=== PATIENT | female | born 1935 | race Caucasian/White ===

== ENCOUNTER 2017-09-05 12:26 | Inpatient (IN) | payer MEDICARE, BC ==
[2017-09-05] MEDS ORDERED: FAMOTIDINE 20 MG/2 ML VIAL IV STA (12:41)
[2017-09-05] MEDS ORDERED: RX INFO: IV CONTRAST WAS GIVEN 1 EACH MISC MISCELLANE PRN (12:41)
[2017-09-05] MEDS ORDERED: SODIUM CHLORIDE 0.9% 1,000 ML IV STA (12:41)
[2017-09-05] MEDS ORDERED: ONDANSETRON 4 MG/2 ML VIAL IVP STA ×2 (12:41→14:24)
--- NOTE | 2017-09-05 12:44 | ED ---
General Adult HPI - General Chief complaint: Nausea/Vomiting/Diarrhea Stated complaint: vomiting/diarrhea Time Seen by Provider: 09/05/17 12:28 Source: patient, RN notes reviewed Mode of arrival: ambulatory Limitations: no limitations - History of Present Illness Initial comments: 82-year-old female presents to the emergency department with a chief complaint of nausea vomiting and diarrhea. Patient has had this in the middle of the night. She did eat some chili last states that she believes most likely flared up. She states that he does not know if there is blood or not in the vomit because it was so dark in color from the chili. She denies any fever but states she did have chills on and off for this. There is been no other other symptoms. She denies any chest pain or shortness of breath. Patient denies any recent fever, chills, shortness of breath, chest pain, back pain,numbness or tingling, dysuria or hematuria, constipation , headaches or visual changes, or any other current symptoms. - Related Data Home Medications Medication Instructions Recorded Confirmed Aspirin EC [Ecotrin Low Dose] 81 mg PO DAILY 07/30/16 09/05/17 Previous Rx's Medication Instructions Recorded Atorvastatin [Lipitor] 80 mg PO HS #30 tab 05/19/16 Clopidogrel [Plavix] 75 mg PO DAILY #30 tab 05/19/16 Lisinopril [Zestril] 5 mg PO BID #60 tab 05/19/16 Metoprolol Tartrate [Lopressor] 25 mg PO BID #30 tab 05/19/16 Spironolactone [Aldactone] 25 mg PO DAILY #30 tab 05/19/16 Ondansetron Odt [Zofran ODT] 4 mg PO Q8HR PRN #20 tab 09/05/17 Allergies Allergy/AdvReac Type Severity Reaction Status Date / Time cephalexin [From Keflex] Allergy Cramps Verified 09/05/17 12:52 Review of Systems ROS Statement: Those systems with pertinent positive or pertinent negative responses have been documented in the HPI. ROS Other: All systems not noted in ROS Statement are negative. Past Medical History Past Medical History: Asthma, Coronary Artery Disease (CAD), Hyperlipidemia, Hypertension, Myocardial Infarction (DC), Skin Disorder Additional Past Medical History / Comment(s): allergic asthma, occ palpitations , eczema, neuropathy bilateral lower legs and feet, edema lower legs at times, starting of cataracts bilaterally. Last Myocardial Infarction Date:: 04/2016 History of Any Multi-Drug Resistant Organisms: None Reported Past Surgical History: Heart Catheterization With Stent, Hysterectomy Additional Past Surgical History / Comment(s): 10 cardiac stents, colonoscopy Past Anesthesia/Blood Transfusion Reactions: No Reported Reaction Date of Last Stent Placement:: 06/08/16 Past Psychological History: Anxiety, Depression Smoking Status: Never smoker Past Alcohol Use History: None Reported Past Drug Use History: None Reported - Past Family History Son(s) Family Medical History: Cancer Father Family Medical History: Cancer Additional Family Medical History / Comment(s): Father of colon cancer when he was "elderly" Mother Family Medical History: CVA/TIA Additional Family Medical History / Comment(s): Mother at 89yrs a year after a massive CVA that left her paralyzed. General Exam - General Exam Comments Initial Comments: General: The patient is awake and alert, in no distress, and does not appear acutely ill. Eye: Pupils are equal, round and reactive to light, extra-ocular movements are intact; there is normal conjunctiva bilaterally. No signs of icterus. Ears, nose, mouth and throat: There are moist mucous membranes and no oral lesions. Neck: The neck is supple, there is no tenderness. Cardiovascular: There is a regular rate and rhythm. No murmur, rub or gallop is appreciated. Respiratory: Lungs are clear to auscultation, respirations are non-labored, breath sounds are equal. No wheezes, stridor, rales, or rhonchi. Gastrointestinal: Soft, non-distended, non-tender abdomen without masses or organomegaly noted. There is no rebound or guarding present. No CVA tenderness. Bowel sounds are unremarkable. Back: There is no tenderness to palpation in the midline. There is no obvious deformity. No rashes noted. Musculoskeletal: Normal ROM, no tenderness, There is no pedal edema. There is no calf tenderness or swelling. Sensation intact. Pulses equal bilaterally 2+. Neurological: CN II-XII intact, There are no obvious motor or sensory deficits. Coordination appears grossly intact. Speech is normal. Skin: Skin is warm and dry and no rashes or lesions are noted. Psychiatric: Cooperative, appropriate mood & affect, normal judgment. Limitations: no limitations Course Vital Signs 09/05/17 09/05/17 12:28 14:01 Temperature 98.8 F 98.5 F Pulse Rate 66 91 Respiratory 16 18 Rate Blood Pressure 154/67 159/92 O2 Sat by Pulse 96 99 Oximetry Medical Decision Making - Medical Decision Making 82-year-old female presents for nausea vomiting and diarrhea. This time patient has had no vomiting here in the emergency department. The patient is feeling better at this time. CAT scan lab work is reviewed additional gastroenteritis. This time patient was able to do finger to the bathroom. She is comfortable going home. We will give her Zofran prescription for home. We did discuss close follow-up with her doctor. We discussed that if this worsens she may need to be admitted. We did discuss return parameters all questions. Patient stated that she understood and she is agreement this plan. All questions have been answered. Patient will be discharged. - Lab Data Result diagrams: 09/05/17 12:51 09/05/17 12:51 Lab Results 09/05/17 09/05/17 09/05/17 Range/Units 12:51 12:51 12:51 WBC 8.7 (3.8-10.6) k/uL RBC 4.74 (3.80-5.40) m/uL Hgb 13.5 (11.4-16.0) gm/dL Hct 40.7 (34.0-46.0) % MCV 86.0 (80.0-100.0) fL MCH 28.4 (25.0-35.0) pg MCHC 33.0 (31.0-37.0) g/dL RDW 12.6 (11.5-15.5) % Plt Count 260 (150-450) k/uL Neutrophils % 96 % Lymphocytes % 2 % Monocytes % 2 % Eosinophils % 0 % Basophils % 0 % Neutrophils # 8.3 H (1.3-7.7) k/uL Lymphocytes # 0.2 L (1.0-4.8) k/uL Monocytes # 0.2 (0-1.0) k/uL Eosinophils # 0.0 (0-0.7) k/uL Basophils # 0.0 (0-0.2) k/uL PT 10.6 (9.0-12.0) sec INR 1.1 (<1.2) APTT 22.4 (22.0-30.0) sec Sodium 139 (137-145) mmol/L Potassium 4.1 (3.5-5.1) mmol/L Chloride 107 (98-107) mmol/L Carbon Dioxide 21 L (22-30) mmol/L Anion Gap 11 mmol/L BUN 20 H (7-17) mg/dL Creatinine 0.67 (0.52-1.04) mg/dL Est GFR (MDRD) Af Amer >60 (>60 ml/min/1.73 sqM) Est GFR (MDRD) Non-Af >60 (>60 ml/min/1.73 sqM) Glucose 134 H (74-99) mg/dL Calcium 8.4 (8.4-10.2) mg/dL Phosphorus 3.3 (2.5-4.5) mg/dL Magnesium 1.6 (1.6-2.3) mg/dL Total Bilirubin 0.5 (0.2-1.3) mg/dL AST 22 (14-36) U/L ALT 23 (9-52) U/L Alkaline Phosphatase 71 (38-126) U/L Total Protein 6.3 (6.3-8.2) g/dL Albumin 3.5 (3.5-5.0) g/dL Amylase 79 (30-110) U/L Lipase 82 (23-300) U/L Urine Color Urine Appearance (Clear) Urine pH (5.0-8.0) Ur Specific Wallace (1.001-1.035) Urine Protein (Negative) Urine Glucose (UA) (Negative) Urine Ketones (Negative) Urine Blood (Negative) Urine Nitrite (Negative) Urine Bilirubin (Negative) Urine Urobilinogen (<2.0) mg/dL Ur Leukocyte Esterase (Negative) 09/05/17 Range/Units 14:42 WBC (3.8-10.6) k/uL RBC (3.80-5.40) m/uL Hgb (11.4-16.0) gm/dL Hct (34.0-46.0) % MCV (80.0-100.0) fL MCH (25.0-35.0) pg MCHC (31.0-37.0) g/dL RDW (11.5-15.5) % Plt Count (150-450) k/uL Neutrophils % % Lymphocytes % % Monocytes % % Eosinophils % % Basophils % % Neutrophils # (1.3-7.7) k/uL Lymphocytes # (1.0-4.8) k/uL Monocytes # (0-1.0) k/uL Eosinophils # (0-0.7) k/uL Basophils # (0-0.2) k/uL PT (9.0-12.0) sec INR (<1.2) APTT (22.0-30.0) sec Sodium (137-145) mmol/L Potassium (3.5-5.1) mmol/L Chloride (98-107) mmol/L Carbon Dioxide (22-30) mmol/L Anion Gap mmol/L BUN (7-17) mg/dL Creatinine (0.52-1.04) mg/dL Est GFR (MDRD) Af Amer (>60 ml/min/1.73 sqM) Est GFR (MDRD) Non-Af (>60 ml/min/1.73 sqM) Glucose (74-99) mg/dL Calcium (8.4-10.2) mg/dL Phosphorus (2.5-4.5) mg/dL Magnesium (1.6-2.3) mg/dL Total Bilirubin (0.2-1.3) mg/dL AST (14-36) U/L ALT (9-52) U/L Alkaline Phosphatase (38-126) U/L Total Protein (6.3-8.2) g/dL Albumin (3.5-5.0) g/dL Amylase (30-110) U/L Lipase (23-300) U/L Urine Color Yellow Urine Appearance Clear (Clear) Urine pH 5.5 (5.0-8.0) Ur Specific Wallace >1.050 H (1.001-1.035) Urine Protein Trace H (Negative) Urine Glucose (UA) Negative (Negative) Urine Ketones Negative (Negative) Urine Blood Negative (Negative) Urine Nitrite Negative (Negative) Urine Bilirubin Negative (Negative) Urine Urobilinogen <2.0 (<2.0) mg/dL Ur Leukocyte Esterase Negative (Negative) - Radiology Data Radiology results: report reviewed, image reviewed Disposition Clinical Impression: Nausea & vomiting, Diarrhea Disposition: HOME SELF-CARE Condition: Stable Instructions: Acute Nausea and Vomiting (ED) Additional Instructions: Please use medication as discussed. Please follow up with family doctor if symptoms have not improved over the next two days. Please return to the emergency room if your symptoms increase or worsen or for any other concerns. Prescriptions: Ondansetron Odt [Zofran ODT] 4 mg PO Q8HR PRN #20 tab PRN Reason: Nausea Referrals: Dagoberto Andersen DO [Primary Care Provider] - 1-2 days Time of Disposition: 14:55
[2017-09-05 13:07] LABS: Basophils % (A) 0 %; Eosinophils % (A) 0 %; HCT 40.7 % (34.0-46.0); HGB 13.5 gm/dL (11.4-16.0); Lymphocytes # (A) 0.2 k/uL (1.0-4.8); Lymphocytes % (A) 2 %; MCH 28.4 pg (25.0-35.0); Mean Platelet Volume 7.1; Monocytes # (A) 0.2 k/uL (0-1.0); Monocytes % (A) 2 %; Neutrophils # (A) 8.3 k/uL (1.3-7.7); Neutrophils % (A) 96 %; Platelet Count 260 k/uL (150-450); RBC 4.74 m/uL (3.80-5.40); RDW 12.6 % (11.5-15.5); WBC 8.7 k/uL (3.8-10.6)
[2017-09-05 13:11] LABS: INR 1.1 (<1.2); Partial Thromboplastin Time 22.4 sec (22.0-30.0); Prothrombin Time 10.6 sec (9.0-12.0)
[2017-09-05 13:12] LABS: ALT 23 U/L (9-52); AST 22 U/L (14-36); Albumin 3.5 g/dL (3.5-5.0); Alkaline Phosphatase 71 U/L (38-126); Amylase 79 U/L (30-110); Anion Gap 11 mmol/L; Blood Urea Nitrogen 20 mg/dL (7-17); Calcium 8.4 mg/dL (8.4-10.2); Carbon Dioxide 21 mmol/L (22-30); Chloride 107 mmol/L (98-107); Glucose 134 mg/dL (74-99); Lipase 82 U/L (23-300); Magnesium 1.6 mg/dL (1.6-2.3); Phosphorus 3.3 mg/dL (2.5-4.5); Potassium 4.1 mmol/L (3.5-5.1); Sodium 139 mmol/L (137-145); Total Bilirubin 0.5 mg/dL (0.2-1.3); Total Protein 6.3 g/dL (6.3-8.2)
--- NOTE | 2017-09-05 14:17 | CT ---
EXAMINATION TYPE: CT abdomen pelvis w con DATE OF EXAM: 09/05/2017 COMPARISON: NONE HISTORY: Vomiting and Diarrhea CT DLP: 473.2 mGycm Automated exposure control for dose reduction was used. TECHNIQUE: Helical acquisition of images from the lung bases through the pelvis have been completed. CONTRAST: Performed without Oral Contrast and with IV Contrast, patient injected with 100 mL of Omnipaque 300. FINDINGS: Suspect a hiatal hernia may be present. Possible pulmonary artery calcifications, mitral an nular calcification LUNG BASES: No significant abnormality is appreciated. AORTA: No significant abnormality is appreciated. LIVER/GB: No significant abnormality is appreciated. PANCREAS: No significant abnormality is seen. SPLEEN: No significant abnormality is seen. ADRENALS: No significant abnormality is seen. KIDNEYS: No significant abnormality is seen. REPRODUCTIVE ORGANS: Uterus is absent Adnexal structures are not evident.. BOWEL: No significant abnormality is seen. There is a fluid-filled stomach present. Probable retain ed food or secretions within the stomach. There are fluid-filled loops of small bowel present. No casa dent appendicitis. Questionable colonic wall thickening distally. FREE AIR: No Free Air visible. ASCITES: None visible. PELVIC ADENOPATHY: None visualized. RETROPERITONEAL ADENOPATHY: No Retroperitoneal Adenopathy visible. URINARY BLADDER: No significant abnormality is seen. OSSEOUS STRUCTURES: There is anterolisthesis grade 1 to grade 2 at L5-S1. Loss of disc height is pres ent with associated vacuum phenomenon. There is multilevel degenerative disc disease. Heterogeneous d ensity noted within the vertebral bodies may be due to underlying osteopenia. IMPRESSION: CORRELATE FOR GASTROENTERITIS, POSSIBLE COLITIS. POSTOP CHANGES.
[2017-09-05 14:49] LABS: Appearance,Urine Clear (Clear); Bilirubin,Urine Negative (Negative); Blood,Urine Negative (Negative); Color,Urine Yellow; Glucose,Urine (UA) Negative (Negative); Ketones,Urine Negative (Negative); Leukocyte Esterase,Urine Negative (Negative); Nitrite,Urine Negative (Negative); PH, Urine 5.5 (5.0-8.0); Protein,Urine Trace (Negative); Urobilinogen,Urine <2.0 mg/dL (<2.0)
[2017-09-05 14:53] LABS: Specific Gravity,Urine >1.050 (1.001-1.035)
[2017-09-05] MEDS ORDERED: MAG HYDROX/AL HYDROX/SIMETH 30 ML, HYOSCYAMINE ELIXIR 10 ML, CIMETIDINE HCL 300 MG PO STA ×3 (15:05)
--- NOTE | 2017-09-05 15:13 | ED ---
Medical Decision Making - Medical Decision Making Upon discharge the patient did have an episode of nausea and the patient did vomit for the first time it does appear to be bloody in nature. Gastric occult is positive. At this time we will admit patient for continued hydration and nausea medication. Patient is agreement this plan. - Lab Data Result diagrams: 09/05/17 12:51 09/05/17 12:51 Lab Results 09/05/17 09/05/17 09/05/17 Range/Units 12:51 12:51 12:51 WBC 8.7 (3.8-10.6) k/uL RBC 4.74 (3.80-5.40) m/uL Hgb 13.5 (11.4-16.0) gm/dL Hct 40.7 (34.0-46.0) % MCV 86.0 (80.0-100.0) fL MCH 28.4 (25.0-35.0) pg MCHC 33.0 (31.0-37.0) g/dL RDW 12.6 (11.5-15.5) % Plt Count 260 (150-450) k/uL Neutrophils % 96 % Lymphocytes % 2 % Monocytes % 2 % Eosinophils % 0 % Basophils % 0 % Neutrophils # 8.3 H (1.3-7.7) k/uL Lymphocytes # 0.2 L (1.0-4.8) k/uL Monocytes # 0.2 (0-1.0) k/uL Eosinophils # 0.0 (0-0.7) k/uL Basophils # 0.0 (0-0.2) k/uL PT 10.6 (9.0-12.0) sec INR 1.1 (<1.2) APTT 22.4 (22.0-30.0) sec Sodium 139 (137-145) mmol/L Potassium 4.1 (3.5-5.1) mmol/L Chloride 107 (98-107) mmol/L Carbon Dioxide 21 L (22-30) mmol/L Anion Gap 11 mmol/L BUN 20 H (7-17) mg/dL Creatinine 0.67 (0.52-1.04) mg/dL Est GFR (MDRD) Af Amer >60 (>60 ml/min/1.73 sqM) Est GFR (MDRD) Non-Af >60 (>60 ml/min/1.73 sqM) Glucose 134 H (74-99) mg/dL Calcium 8.4 (8.4-10.2) mg/dL Phosphorus 3.3 (2.5-4.5) mg/dL Magnesium 1.6 (1.6-2.3) mg/dL Total Bilirubin 0.5 (0.2-1.3) mg/dL AST 22 (14-36) U/L ALT 23 (9-52) U/L Alkaline Phosphatase 71 (38-126) U/L Total Protein 6.3 (6.3-8.2) g/dL Albumin 3.5 (3.5-5.0) g/dL Amylase 79 (30-110) U/L Lipase 82 (23-300) U/L Urine Color Urine Appearance (Clear) Urine pH (5.0-8.0) Ur Specific [place] (1.001-1.035) Urine Protein (Negative) Urine Glucose (UA) (Negative) Urine Ketones (Negative) Urine Blood (Negative) Urine Nitrite (Negative) Urine Bilirubin (Negative) Urine Urobilinogen (<2.0) mg/dL Ur Leukocyte Esterase (Negative) Gastric Occult Blood (Negative) 09/05/17 09/05/17 Range/Units 14:42 15:15 WBC (3.8-10.6) k/uL RBC (3.80-5.40) m/uL Hgb (11.4-16.0) gm/dL Hct (34.0-46.0) % MCV (80.0-100.0) fL MCH (25.0-35.0) pg MCHC (31.0-37.0) g/dL RDW (11.5-15.5) % Plt Count (150-450) k/uL Neutrophils % % Lymphocytes % % Monocytes % % Eosinophils % % Basophils % % Neutrophils # (1.3-7.7) k/uL Lymphocytes # (1.0-4.8) k/uL Monocytes # (0-1.0) k/uL Eosinophils # (0-0.7) k/uL Basophils # (0-0.2) k/uL PT (9.0-12.0) sec INR (<1.2) APTT (22.0-30.0) sec Sodium (137-145) mmol/L Potassium (3.5-5.1) mmol/L Chloride (98-107) mmol/L Carbon Dioxide (22-30) mmol/L Anion Gap mmol/L BUN (7-17) mg/dL Creatinine (0.52-1.04) mg/dL Est GFR (MDRD) Af Amer (>60 ml/min/1.73 sqM) Est GFR (MDRD) Non-Af (>60 ml/min/1.73 sqM) Glucose (74-99) mg/dL Calcium (8.4-10.2) mg/dL Phosphorus (2.5-4.5) mg/dL Magnesium (1.6-2.3) mg/dL Total Bilirubin (0.2-1.3) mg/dL AST (14-36) U/L ALT (9-52) U/L Alkaline Phosphatase (38-126) U/L Total Protein (6.3-8.2) g/dL Albumin (3.5-5.0) g/dL Amylase (30-110) U/L Lipase (23-300) U/L Urine Color Yellow Urine Appearance Clear (Clear) Urine pH 5.5 (5.0-8.0) Ur Specific [place] >1.050 H (1.001-1.035) Urine Protein Trace H (Negative) Urine Glucose (UA) Negative (Negative) Urine Ketones Negative (Negative) Urine Blood Negative (Negative) Urine Nitrite Negative (Negative) Urine Bilirubin Negative (Negative) Urine Urobilinogen <2.0 (<2.0) mg/dL Ur Leukocyte Esterase Negative (Negative) Gastric Occult Blood Positive (Negative) 09/05/17 15:40 Normal sinus rhythm, ventricular rate 89, VT interval 158, QRS duration 62 Disposition Clinical Impression: Nausea & vomiting, Diarrhea, Upper GI bleed Disposition: ADMITTED IP TO THIS [facility] Condition: Stable Referrals: Dagoberto Andersen DO [Primary Care Provider] - 1-2 days Time of Disposition: 15:12 Decision Date: 09/05/17 Decision Time: 15:12
[2017-09-05] MEDS ORDERED: ONDANSETRON 4 MG/2 ML VIAL IVP PRN (15:20)
[2017-09-05] MEDS ORDERED: NALOXONE 0.4 MG/ML 1 ML VIAL IV PRN (15:20)
[2017-09-05] MEDS ORDERED: METOCLOPRAMIDE 5 MG/ML 2 ML VIAL IVP STA (16:36)
[2017-09-05] MEDS: SODIUM CHLORIDE 0.9% 1,000 ML IV SCH ×2 (17:34→21:18)
[2017-09-06 05:54] LABS: Basophils % (A) 0 %; Eosinophils % (A) 0 %; HCT 31.5 % (34.0-46.0); Lymphocytes # (A) 0.4 k/uL (1.0-4.8); Lymphocytes % (A) 8 %; MCH 27.3 pg (25.0-35.0); MCHC 31.2 g/dL (31.0-37.0); MCV 87.5 fL (80.0-100.0); Monocytes # (A) 0.3 k/uL (0-1.0); Monocytes % (A) 6 %; Neutrophils # (A) 3.9 k/uL (1.3-7.7); Neutrophils % (A) 84 %; Platelet Count 220 k/uL (150-450); RDW 12.8 % (11.5-15.5); WBC 4.6 k/uL (3.8-10.6)
[2017-09-06 06:03] LABS: HGB 9.8 gm/dL (11.4-16.0)
[2017-09-06 06:04] LABS: ALT 31 U/L (9-52); AST 19 U/L (14-36); Albumin 2.8 g/dL (3.5-5.0); Alkaline Phosphatase 49 U/L (38-126); Anion Gap 9 mmol/L; Blood Urea Nitrogen 31 mg/dL (7-17); Carbon Dioxide 22 mmol/L (22-30); Chloride 111 mmol/L (98-107); Glucose 112 mg/dL (74-99); Potassium 4.4 mmol/L (3.5-5.1); Sodium 142 mmol/L (137-145); Total Bilirubin 0.2 mg/dL (0.2-1.3); Total Protein 5.1 g/dL (6.3-8.2)
[2017-09-06] MEDS: PANTOPRAZOLE 40 MG/10 ML VIAL IV SCH (08:07)
[2017-09-06] MEDS: SODIUM CHLORIDE 0.9% 1,000 ML IV SCH ×2 (14:43→17:47)
[2017-09-06] MEDS ORDERED: IV FLUID CONTINUATION 1,000 ML IV ONE ×3 (14:48→16:08)
--- NOTE | 2017-09-06 15:03 | P.HPIM ---
History of Present Illness H&P Date: 09/06/17 Chief Complaint: Vomiting blood 82-year-old feeling presented to the emergency room on 09/05/2017 with a chief complaint of nausea and bloody emesis x 1 day. Patient denies constipation or diarrhea. She states she has felt very weak for the last few days. Denies abdominal pain. States her appetite is good. Denies chest pain or pressure. She does state that she feels congested and has been coughing for a few days. Her cough is non-productive and she is requesting medication to help loosen her secretions. 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 She has had multiple stent placements. In the emergency room, a computed tomography scan of the abdomen and pelvis was completed which revealed findings suggestive of asked her enteritis, possible colitis. Patient's emesis was positive for occult blood. Laboratory results reveal white count 8.7, hemoglobin 13.5, platelet count 260, sodium 139, potassium 4.1, BUN 20, creatinine 0.67, and magnesium 1.6. Urinalysis reveals trace protein. The patient was admitted to the hospital under the care of Dr. Andersen. Dr. Gee was consulted for further evaluation. Review of Systems GENERAL: Positive for generalized weakness and malaise. Patient denies fever. Denies chills. EYES: Denies blurred vision. Denies vision changes. Denies eye pain. EARS, NOSE, MOUTH, & THROAT: Denies headache. Denies sore throat. Denies ear pain. RESPIRATORY: Positive for congestion and cough. Denies shortness of breath. Denies hemoptysis. CARDIOVASCULAR: Denies chest pain or pressure. Denies palpitations. Denies arrhythmias. GASTROINTESTINAL: Positive for nausea. Positive for bloody emesis. Denies abdominal pain. Denies diarrhea. Denies constipation. Denies blood in the stool. GENITOURINARY: Denies urinary frequency. Denies burning. Denies dysuria. Denies cloudy urine. Denies blood in the urine. MUSCULOSKELETAL: Denies myalgias. Denies joint swelling. Denies decreased range of motion beyond patients baseline. INTEGUMENTARY: Denies pruitis. Denies rash. PSYCHIATRIC: Denies suicidal or homicial ideations. ENDOCRINE: Denies weight change. Denies polydipsia. Denies polyuria. HEMATOLOGIC: Denies bleeding disorders. Past Medical History Past Medical History: Asthma, Coronary Artery Disease (CAD), CVA/TIA, Hyperlipidemia, Hypertension, Myocardial Infarction ([place]), Skin Disorder Additional Past Medical History / Comment(s): allergic asthma, occ palpitations , eczema, neuropathy bilateral lower legs and feet, edema lower legs at times, starting of cataracts bilaterally. Last Myocardial Infarction Date:: 04/2016 History of Any Multi-Drug Resistant Organisms: None Reported Past Surgical History: Heart Catheterization With Stent, Hysterectomy Additional Past Surgical History / Comment(s): 10 cardiac stents, colonoscopy Past Anesthesia/Blood Transfusion Reactions: No Reported Reaction Date of Last Stent Placement:: 06/08/16 Smoking Status: Never smoker - Past Family History Son(s) Family Medical History: Cancer Father Family Medical History: Cancer Additional Family Medical History / Comment(s): Father of colon cancer when he was "elderly" Mother Family Medical History: CVA/TIA Additional Family Medical History / Comment(s): Mother at 89yrs a year after a massive CVA that left her paralyzed. Medications and Allergies Home Medications Medication Instructions Recorded Confirmed Type Atorvastatin [Lipitor] 80 mg PO HS #30 tab 05/19/16 09/05/17 Rx Clopidogrel [Plavix] 75 mg PO DAILY #30 tab 05/19/16 09/05/17 Rx Lisinopril [Zestril] 5 mg PO BID #60 tab 05/19/16 09/05/17 Rx Metoprolol Tartrate [Lopressor] 25 mg PO BID #30 tab 05/19/16 09/05/17 Rx Spironolactone [Aldactone] 25 mg PO DAILY #30 tab 05/19/16 09/05/17 Rx Aspirin EC [Ecotrin Low Dose] 81 mg PO DAILY 07/30/16 09/05/17 History Allergies Allergy/AdvReac Type Severity Reaction Status Date / Time cephalexin [From Keflex] Allergy Cramps Verified 09/05/17 12:52 Physical Exam Vitals: Vital Signs Temp Pulse Pulse Resp BP BP Pulse Ox 09/06/17 11:38 99.3 F 90 16 156/68 99 09/06/17 08:37 99.8 F H 89 16 131/58 99 09/06/17 08:00 99.8 F H 89 16 131/58 99 09/06/17 04:00 99.2 F 100 18 140/64 97 09/05/17 23:37 98.9 F 92 16 140/65 99 09/05/17 20:00 99.5 F 85 16 139/65 98 09/05/17 17:30 72 12 156/68 91 L 09/05/17 16:31 99.2 F 83 96 09/05/17 16:07 87 18 129/59 95 09/05/17 15:13 79 18 133/64 97 09/05/17 14:01 98.5 F 91 18 159/92 99 Intake and Output 09/05/17 09/06/17 09/06/17 22:59 06:59 14:59 Intake Total 1200 Balance 1200 Intake: Intake, IV Titration 1200 Amount Sodium Chloride 0.9% 1, 1200 000 ml @ 100 mls/hr IV . Q10H [facility] Rx#:[id number] Other: Voiding Method Toilet Toilet # Voids 1 2 1 # Bowel Movements 0 GENERAL: This is a 82-year-old female in no apparent distress at the time of examination. Pleasant and cooperative. HEENT: Head is atraumatic, normocephalic. Pupils are equal, round, and reactive to light. Sclerae anicteric. Conjunctivae are clear. Mucus membranes of the mouth are moist. Neck is supple. RESPIRATORY: Clear to ausculation. No wheezes, rales, or rhonchi. No use of accessory muscles. Patient maintaining oxygen saturation greater than 92%. No chest wall tenderness is noted on palpation or with deep breathing. CARDIOVASCULAR: Regular rate and rhythm. S1 and S2 noted. No JVD noted. No S3 or S4 noted. GASTROINTESTINAL: No distention noted. Abdomen soft and round. Normal active bowel sounds auscultated x 4 quadrants. No pain or tenderness noted upon palpation. INTEGUMENTARY: No cyanosis. No jaundice. No rashes noted. No cellulitis noted. EXTREMITIES: 2+ peripheral pulses. No evidence of peripheral edema. No calf tenderness noted. NEUROLOGIC: Cranial nerves II-XII intact. PSYCHIATRIC: Awake, alert, and oriented X 3. Appropriate affect. Intact judgement and insight. Results CBC & Chem 7: 09/06/17 05:09 09/06/17 05:09 Labs: Abnormal Lab Results - Last 24 Hours (Table) 09/05/17 09/05/17 09/05/17 Range/Units 12:51 12:51 14:42 RBC (3.80-5.40) m/uL Hgb (11.4-16.0) gm/dL Hct (34.0-46.0) % Neutrophils # 8.3 H (1.3-7.7) k/uL Lymphocytes # 0.2 L (1.0-4.8) k/uL Chloride (98-107) mmol/L Carbon Dioxide 21 L (22-30) mmol/L BUN 20 H (7-17) mg/dL Glucose 134 H (74-99) mg/dL Calcium (8.4-10.2) mg/dL Total Protein (6.3-8.2) g/dL Albumin (3.5-5.0) g/dL Ur Specific [place] >1.050 H (1.001-1.035) Urine Protein Trace H (Negative) 09/06/17 09/06/17 Range/Units 05:09 05:09 RBC 3.60 L (3.80-5.40) m/uL Hgb 9.8 L D (11.4-16.0) gm/dL Hct 31.5 L (34.0-46.0) % Neutrophils # (1.3-7.7) k/uL Lymphocytes # 0.4 L (1.0-4.8) k/uL Chloride 111 H (98-107) mmol/L Carbon Dioxide (22-30) mmol/L BUN 31 H (7-17) mg/dL Glucose 112 H (74-99) mg/dL Calcium 8.0 L (8.4-10.2) mg/dL Total Protein 5.1 L (6.3-8.2) g/dL Albumin 2.8 L (3.5-5.0) g/dL Ur Specific [place] (1.001-1.035) Urine Protein (Negative) Microbiology - Last 24 Hours (Table) 09/05/17 14:42 Urine Culture - Preliminary Urine,Voided Thrombosis Risk Factor Assmnt - Choose All That Apply Any of the Below Risk Factors Present?: Yes Each Factor Represents 1 point: Obesity (BMI >25), Swollen legs (current) Other Risk Factors: Yes Each Risk Factor Represents 3 Points: Age 75 years or older Other congenital or acquired thrombophilia - If yes, enter type in comment: No Thrombosis Risk Factor Assessment Total Risk Factor Score: 5 Thrombosis Risk Factor Assessment Level: High Risk Assessment and Plan Plan: ASSESSMENT: Hematemesis, suspect upper gastrointestinal bleeding Anemia, likely secondary to acute blood loss secondary to suspected upper GI bleed Complaints of congestion and cough with no evidence of respiratory distress or adventitious lung sounds, will obtain CXR to rule out underlying infectious process History of coronary artery disease with previous myocardial infarction and multiple stent placements Chronic systolic congestive heart failure, echo from 04/2016 reveals ejection fraction of 30-35%, no evidence of acute exacerbation Essential hypertension Hyperlipidemia History of asthma, no evidence of acute exacerbation Neuropathy of bilateral lower extremities Anxiety, unspecified Depression, unspecified PLAN: -Dr. Gee on consult. Appreciate recommendations and input -Patient scheduled for EGD this afternoon -Nothing by mouth until procedure, then may begin clear liquid diet -Continue IV fluid while patient is NPO then discontinue fluids -Mucinex per patient request to begin after procedure -Obtain chest x-ray r/o underlying infectious process secondary to coughing -Home meds as appropriate -Hold patient's aspirin and Plavix -Monitor hemoglobin. Recheck in a.m. -Monitor labs -GI prophylaxis: Protonix 40mg IV daily -DVT prophylaxis: Antiembolism stockings to bilateral lower extremities -Monitor vital signs and address as appropriate -Discharge planning: Patient to return home when stable. Unsure at this time if she would like home care. -Further recommendations pending patient's course Nurse practitioner note has been reviewed by physician. Signing provider agrees with the documented findings, assessment, and plan of care.
[2017-09-06] MEDS ORDERED: PROPOFOL 10 MG/ML 20 ML VIAL IV ONE (15:33)
[2017-09-06] MEDS ORDERED: Magnesium Replacement Protocol 1 EACH MISC MISCELLANE PRN (16:20)
--- NOTE | 2017-09-06 16:22 | P.OP ---
Date of Procedure: 09/06/17 Preoperative Diagnosis: GI bleed Postoperative Diagnosis: GI bleed Procedure(s) Performed: Attempted EGD Anesthesia: MAC Surgeon: Rojas Gee Pathology: none sent Condition: stable Disposition: PACU Description of Procedure: The patient's placed on the operative table in the supine position. She received IV sedation. The gastroscope placed oropharynx. The scope was placed into the esophagus. There is significant swelling in the oropharynx. The scope was then exchanged for a pediatric scope and multiple times made to cannulate the esophagus. There was good visualization of the pharynx. The patient was then positioned under back in layers scope was placed in the gastroscope some placed in the esophagus however was impossible to cannulate the esophagus. This point the procedure was stopped there is no evidence of any injury to the pharynx. Patient was sent back to the recovery room stable condition.
--- NOTE | 2017-09-06 17:42 | XR ---
EXAMINATION TYPE: XR chest 2V DATE OF EXAM: 09/06/2017 COMPARISON: 07/30/2016 HISTORY: Cough TECHNIQUE: Frontal and lateral views of the chest are obtained. FINDINGS: There is no heart failure nor confluent pneumonic infiltrate. Heart size is normal. There are chest leads. Thoracic aorta is atheromatous. IMPRESSION: No active cardiopulmonary disease. No change.
[2017-09-06] MEDS: MAGNESIUM SULFATE-D5W PMX 1 GM in DEXTROSE/WATER 1 100ML.BAG IVPB SCH ×2 (17:47→18:43)
[2017-09-06] MEDS: ATORVASTATIN 80 MG TAB PO SCH (19:41)
[2017-09-06] MEDS: guaiFENesin 600 MG TABLET.ER PO SCH (19:41)
[2017-09-06] MEDS: LISINOPRIL 5 MG TAB PO SCH (19:41)
[2017-09-06] MEDS: METOPROLOL TARTRATE 25 MG TAB PO SCH (19:42)
[2017-09-07 05:53] LABS: Basophils % (A) 1 %; Eosinophils % (A) 1 %; HCT 23.9 % (34.0-46.0); HGB 7.6 gm/dL (11.4-16.0); Lymphocytes # (A) 0.7 k/uL (1.0-4.8); Lymphocytes % (A) 23 %; MCH 27.5 pg (25.0-35.0); MCHC 31.7 g/dL (31.0-37.0); MCV 86.9 fL (80.0-100.0); Mean Platelet Volume 7.6; Monocytes # (A) 0.2 k/uL (0-1.0); Monocytes % (A) 8 %; Neutrophils # (A) 1.9 k/uL (1.3-7.7); Neutrophils % (A) 65 %; Platelet Count 189 k/uL (150-450); RBC 2.75 m/uL (3.80-5.40); RDW 13.7 % (11.5-15.5); WBC 2.9 k/uL (3.8-10.6)
[2017-09-07 05:54] LABS: Anion Gap 5 mmol/L; Blood Urea Nitrogen 22 mg/dL (7-17); Calcium 7.7 mg/dL (8.4-10.2); Carbon Dioxide 21 mmol/L (22-30); Chloride 112 mmol/L (98-107); Glucose 91 mg/dL (74-99); Magnesium 2.2 mg/dL (1.6-2.3); Potassium 3.7 mmol/L (3.5-5.1); Sodium 138 mmol/L (137-145)
[2017-09-07] MEDS: SODIUM CHLORIDE 0.9% 1,000 ML IV SCH ×2 (06:22→08:45)
[2017-09-07] MEDS ORDERED: PEG 3350-NA SULF,BICARB,CL/KCL 4,000 ML BOTTLE PO ONE (08:08)
[2017-09-07] MEDS: SPIRONOLACTONE 25 MG TAB PO SCH (08:44)
[2017-09-07] MEDS: LISINOPRIL 5 MG TAB PO SCH ×2 (08:45→19:50)
[2017-09-07] MEDS: METOPROLOL TARTRATE 25 MG TAB PO SCH ×2 (08:45→19:50)
[2017-09-07] MEDS: guaiFENesin 600 MG TABLET.ER PO SCH ×2 (08:45→19:50)
[2017-09-07] MEDS: PANTOPRAZOLE 40 MG/10 ML VIAL IV SCH ×2 (09:01→19:51)
--- NOTE | 2017-09-07 09:51 | P.PN ---
Subjective Progress Note Date: 09/07/17 82-year-old feeling presented to the emergency room on 09/05/2017 with a chief complaint of nausea and bloody emesis x 1 day. Patient denies constipation or diarrhea. She states she has felt very weak for the last few days. Denies abdominal pain. States her appetite is good. Denies chest pain or pressure. She does state that she feels congested and has been coughing for a few days. Her cough is non-productive and she is requesting medication to help loosen her secretions. 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 She has had multiple stent placements. In the emergency room, a computed tomography scan of the abdomen and pelvis was completed which revealed findings suggestive of asked her enteritis, possible colitis. Patient's emesis was positive for occult blood. Laboratory results reveal white count 8.7, hemoglobin 13.5, platelet count 260, sodium 139, potassium 4.1, BUN 20, creatinine 0.67, and magnesium 1.6. Urinalysis reveals trace protein. The patient was admitted to the hospital under the care of Dr. Andersen. Dr. Gee was consulted for further evaluation. 09/07/2017 Patient was seen and examined at the bedside on rounds with Dr. Andersen. Daughter at the bedside. Patient was complaining of a cough yesterday which she states has improved. Denies shortness of breath. Chest x-ray completed on 09/06/2017 was negative for acute process. Patient underwent EGD 09/06/[address] Gee. The patient was found to have significant swelling in the oropharynx , the scope was exchanged for a pediatric scope however it was not possible to cannulate the esophagus. The procedure was stopped this time. She is currently tolerating a clear liquid breakfast. She denies further episodes of nausea or vomiting. She states she had a bowel movement and it was very dark in color. She is scheduled to undergo colonoscopy tomorrow with Dr. Gee. Patients hemoglobin is 7.6 today, down from 9.8 yesterday. Objective - Vital Signs Vital signs: Vital Signs Temp 98.2 F 09/07/17 08:45 Pulse 83 09/07/17 08:45 Resp 18 09/07/17 08:45 BP 123/59 09/07/17 08:45 Pulse Ox 99 09/07/17 08:45 Intake & Output 09/06/17 09/07/17 09/07/17 18:59 06:59 18:59 Intake Total 1780 390 240 Output Total 300 Balance 1780 390 -60 Weight 61.5 kg Intake: IV 600 Intake, IV Titration 700 Amount Sodium Chloride 0.9% 1, 700 000 ml @ 100 mls/hr IV . Q10H [facility] Rx#:[id number] Oral 480 390 240 Output: Urine 300 Other: Voiding Method Toilet Toilet Toilet # Voids 1 2 # Bowel Movements 0 1 - Exam GENERAL: This is a 82-year-old female in no apparent distress at the time of examination. Pleasant and cooperative. HEENT: Head is atraumatic, normocephalic. Pupils are equal, round, and reactive to light. Sclerae anicteric. Conjunctivae are clear. Mucus membranes of the mouth are moist. Neck is supple. RESPIRATORY: Clear to ausculation. No wheezes, rales, or rhonchi. No use of accessory muscles. Patient maintaining oxygen saturation greater than 92%. No chest wall tenderness is noted on palpation or with deep breathing. CARDIOVASCULAR: Regular rate and rhythm. S1 and S2 noted. No JVD noted. No S3 or S4 noted. GASTROINTESTINAL: No distention noted. Abdomen soft and round. Normal active bowel sounds auscultated x 4 quadrants. No pain or tenderness noted upon palpation. INTEGUMENTARY: No cyanosis. No jaundice. No rashes noted. No cellulitis noted. EXTREMITIES: 2+ peripheral pulses. trace peripheral edema. No calf tenderness noted. NEUROLOGIC: Cranial nerves II-XII intact. PSYCHIATRIC: Awake, alert, and oriented X 3. Appropriate affect. Intact judgement and insight. - Labs CBC & Chem 7: 09/07/17 05:19 09/07/17 05:19 Labs: Abnormal Lab Results - Last 24 Hours (Table) 09/07/17 09/07/17 Range/Units 05:19 05:19 WBC 2.9 L (3.8-10.6) k/uL RBC 2.75 L (3.80-5.40) m/uL Hgb 7.6 L D (11.4-16.0) gm/dL Hct 23.9 L (34.0-46.0) % Lymphocytes # 0.7 L (1.0-4.8) k/uL Chloride 112 H (98-107) mmol/L Carbon Dioxide 21 L (22-30) mmol/L BUN 22 H (7-17) mg/dL Calcium 7.7 L (8.4-10.2) mg/dL Microbiology - Last 24 Hours (Table) 09/05/17 14:42 Urine Culture - Final Urine,Voided Assessment and Plan Plan: ASSESSMENT: Hematemesis, suspect upper gastrointestinal bleeding, s/p aborted EGD secondary to inability to cannulate the esophagus Anemia, likely secondary to acute blood loss secondary to suspected upper GI bleed Complaints of congestion and cough with no evidence of respiratory distress or adventitious lung sounds, improving, chest xray negative for acute process History of coronary artery disease with previous myocardial infarction and multiple stent placements Chronic systolic congestive heart failure, echo from 04/2016 reveals ejection fraction of 30-35%, no evidence of acute exacerbation Essential hypertension Hyperlipidemia History of asthma, no evidence of acute exacerbation Neuropathy of bilateral lower extremities Anxiety, unspecified Depression, unspecified PLAN: -Dr. Gee on consult. Appreciate recommendations and input -Patient scheduled for colonoscopy tomorrow -Continue clear liquid diet -Continue IV fluids at 50cc/hr as patient will be NPO at midnight to prevent dehydration -Monitor for signs of fluid overload -Home meds as appropriate -Hold patient's aspirin and Plavix -Transfuse 1 unit RBC. Repeat hgb at 1800 -Increase protonix to 40mg IV BID -Activity as tolerated -Encourage ambulation -Monitor labs -GI prophylaxis: Protonix 40mg IV BID -DVT prophylaxis: Antiembolism stockings to bilateral lower extremities -Monitor vital signs and address as appropriate -Discharge planning: Patient to return home when stable. Unsure at this time if she would like home care. -Further recommendations pending patient's course Nurse practitioner note has been reviewed by physician. Signing provider agrees with the documented findings, assessment, and plan of care.
--- NOTE | 2017-09-07 09:52 | P.PN ---
<Greta Salmon M - Last Filed: 09/07/17 11:37> Subjective Progress Note Date: 09/07/17 82-year-old female seen and examined. Sitting up in bed taking a clear liquid diet. Patient states she has not had any further emesis. nausea sensation has subsided. Does report having one small hard stool did note bright red blood in the toilet bowl this morning. Patient does report having chronic constipation issues. Patient did undergo an attempted EGD yesterday incomplete after multiple attempts to cannulate the esophagus the procedure was aborted. Patient is scheduled tomorrow for a colonoscopy. Bowel prep will be initiated. Patient and patient's visitor were updated on the plan of care questions answered hemoglobin this morning 7.6 hemoglobin the day before 9.8 Objective - Vital Signs Vital signs: Vital Signs Temp 98.2 F 09/07/17 08:45 Pulse 83 09/07/17 08:45 Resp 18 09/07/17 08:45 BP 123/59 09/07/17 08:45 Pulse Ox 99 09/07/17 08:45 Intake & Output 09/06/17 09/07/17 09/07/17 18:59 06:59 18:59 Intake Total 1780 390 240 Output Total 300 Balance 1780 390 -60 Weight 61.5 kg Intake: IV 600 Intake, IV Titration 700 Amount Sodium Chloride 0.9% 1, 700 000 ml @ 100 mls/hr IV . Q10H [facility] Rx#:[id number] Oral 480 390 240 Output: Urine 300 Other: Voiding Method Toilet Toilet Toilet # Voids 1 2 # Bowel Movements 0 1 - Exam Physical exam 82-year-old female sitting up in bed pleasant oriented 3 Lungs adequate air movement bilaterally on room air sats are 99% Heart S1-S2 audible Abdomen soft no facial grimacing with palpitation to the abdominal wall bowel tones present reports no nausea no vomiting no frequent stooling Extremities no edema noted - Labs CBC & Chem 7: 09/07/17 05:19 09/07/17 05:19 Labs: Abnormal Lab Results - Last 24 Hours (Table) 09/07/17 09/07/17 Range/Units 05:19 05:19 WBC 2.9 L (3.8-10.6) k/uL RBC 2.75 L (3.80-5.40) m/uL Hgb 7.6 L D (11.4-16.0) gm/dL Hct 23.9 L (34.0-46.0) % Lymphocytes # 0.7 L (1.0-4.8) k/uL Chloride 112 H (98-107) mmol/L Carbon Dioxide 21 L (22-30) mmol/L BUN 22 H (7-17) mg/dL Calcium 7.7 L (8.4-10.2) mg/dL Microbiology - Last 24 Hours (Table) 09/05/17 14:42 Urine Culture - Final Urine,Voided Assessment and Plan Assessment: Impression Present on admission hemodialysis likely due to an upper gastrointestinal bleed Acute blood loss anemia suspect due to her upper GI bleed An attempted EGD on September 06 not able to cannulate the esophagus 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 Gee The above impression and plan of care have been discussed and directed by signing physician. Greta Salmon nurse practitioner acting as scribe for signing physician. <Rojas Gee - Last Filed: 09/08/17 09:57> Objective - Vital Signs Vital signs: Vital Signs Temp 97.6 F 09/08/17 07:41 Pulse 74 09/08/17 07:41 Resp 18 09/08/17 07:41 BP 135/64 09/08/17 07:41 Pulse Ox 97 09/08/17 07:41 Intake & Output 09/07/17 09/08/17 09/08/17 18:59 06:59 18:59 Intake Total 1310 300 100 Output Total 500 Balance 810 300 100 Weight 62.1 kg Intake: IV 300 100 Sodium Chloride 0.9% 1, 300 100 000 ml @ 50 mls/hr IV . Q20H [facility] Rx#:[id number] Intake, IV Titration 400 Amount Sodium Chloride 0.9% 1, 400 000 ml @ 50 mls/hr IV . Q20H [facility] Rx#:[id number] Oral 600 Blood Product 310 Rc Pheresis 2 As3 Unit 310 [id number] Output: Urine 500 Other: Voiding Method Toilet Toilet Toilet Bedside Commode Bedside Commode # Bowel Movements 1 - Labs CBC & Chem 7: 09/08/17 05:14 09/08/17 05:14 Labs: Abnormal Lab Results - Last 24 Hours (Table) 09/07/17 09/07/17 09/08/17 Range/Units 10:00 18:35 05:14 WBC 3.4 L 3.0 L (3.8-10.6) k/uL RBC 3.48 L 3.26 L (3.80-5.40) m/uL Hgb 9.7 L D 9.0 L (11.4-16.0) gm/dL Hct 29.6 L 27.2 L (34.0-46.0) % Lymphocytes # 0.9 L (1.0-4.8) k/uL Chloride (98-107) mmol/L Calcium (8.4-10.2) mg/dL Crossmatch See Detail 09/08/17 Range/Units 05:14 WBC (3.8-10.6) k/uL RBC (3.80-5.40) m/uL Hgb (11.4-16.0) gm/dL Hct (34.0-46.0) % Lymphocytes # (1.0-4.8) k/uL Chloride 110 H (98-107) mmol/L Calcium 8.0 L (8.4-10.2) mg/dL Crossmatch
[2017-09-07] MEDS: ALPRAZolam 0.25 MG TAB PO PRN ×2 (10:16→21:10)
[2017-09-07 18:52] LABS: HCT 29.6 % (34.0-46.0); MCH 27.7 pg (25.0-35.0); MCHC 32.7 g/dL (31.0-37.0); MCV 84.9 fL (80.0-100.0); Mean Platelet Volume 7.8; Platelet Count 202 k/uL (150-450); RBC 3.48 m/uL (3.80-5.40); RDW 13.8 % (11.5-15.5); WBC 3.4 k/uL (3.8-10.6)
[2017-09-07 18:58] LABS: HGB 9.7 gm/dL (11.4-16.0)
[2017-09-07] MEDS: ATORVASTATIN 80 MG TAB PO SCH (19:50)
[2017-09-08] MEDS: hydrALAZINE HCL 20 MG/ML 1 ML VIAL IVP PRN ×2 (00:11→16:50)
[2017-09-08] MEDS: LACTATED RINGERS 1,000 ML IV SCH ×2 (04:34→21:39)
[2017-09-08] MEDS: SODIUM CHLORIDE 0.9% 1,000 ML IV SCH (06:11)
[2017-09-08 06:30] LABS: Basophils % (A) 1 %; Eosinophils % (A) 1 %; HCT 27.2 % (34.0-46.0); Lymphocytes # (A) 0.9 k/uL (1.0-4.8); Lymphocytes % (A) 31 %; MCH 27.4 pg (25.0-35.0); MCHC 32.9 g/dL (31.0-37.0); MCV 83.4 fL (80.0-100.0); Mean Platelet Volume 7.3; Monocytes # (A) 0.2 k/uL (0-1.0); Monocytes % (A) 7 %; Neutrophils # (A) 1.7 k/uL (1.3-7.7); Neutrophils % (A) 57 %; Platelet Count 178 k/uL (150-450); RBC 3.26 m/uL (3.80-5.40); RDW 14.2 % (11.5-15.5)
[2017-09-08 06:44] LABS: Anion Gap 8 mmol/L; Blood Urea Nitrogen 12 mg/dL (7-17); Carbon Dioxide 23 mmol/L (22-30); Chloride 110 mmol/L (98-107); Glucose 84 mg/dL (74-99); Potassium 3.6 mmol/L (3.5-5.1); Sodium 141 mmol/L (137-145)
[2017-09-08] MEDS: LISINOPRIL 5 MG TAB PO SCH ×2 (07:41→21:27)
[2017-09-08] MEDS: METOPROLOL TARTRATE 25 MG TAB PO SCH ×2 (07:41→21:27)
[2017-09-08] MEDS: PANTOPRAZOLE 40 MG/10 ML VIAL IV SCH ×2 (07:41→21:37)
[2017-09-08] MEDS: SPIRONOLACTONE 25 MG TAB PO SCH (07:41)
[2017-09-08] MEDS: guaiFENesin 600 MG TABLET.ER PO SCH ×2 (07:41→21:37)
--- NOTE | 2017-09-08 08:41 | P.PN ---
Subjective Progress Note Date: 09/08/17 82-year-old feeling presented to the emergency room on 09/05/2017 with a chief complaint of nausea and bloody emesis x 1 day. Patient denies constipation or diarrhea. She states she has felt very weak for the last few days. Denies abdominal pain. States her appetite is good. Denies chest pain or pressure. She does state that she feels congested and has been coughing for a few days. Her cough is non-productive and she is requesting medication to help loosen her secretions. 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 She has had multiple stent placements. In the emergency room, a computed tomography scan of the abdomen and pelvis was completed which revealed findings suggestive of asked her enteritis, possible colitis. Patient's emesis was positive for occult blood. Laboratory results reveal white count 8.7, hemoglobin 13.5, platelet count 260, sodium 139, potassium 4.1, BUN 20, creatinine 0.67, and magnesium 1.6. Urinalysis reveals trace protein. The patient was admitted to the hospital under the care of Dr. Andersen. Dr. Gee was consulted for further evaluation. 09/07/2017 Patient was seen and examined at the bedside on rounds with Dr. Andersen. Daughter at the bedside. Patient was complaining of a cough yesterday which she states has improved. Denies shortness of breath. Chest x-ray completed on 09/06/2017 was negative for acute process. Patient underwent EGD 09/06/[address] Gee. The patient was found to have significant swelling in the oropharynx , the scope was exchanged for a pediatric scope however it was not possible to cannulate the esophagus. The procedure was stopped this time. She is currently tolerating a clear liquid breakfast. She denies further episodes of nausea or vomiting. She states she had a bowel movement and it was very dark in color. She is scheduled to undergo colonoscopy tomorrow with Dr. Gee. Patients hemoglobin is 7.6 today, down from 9.8 yesterday. 09/08/2017 Patient seen and examined at the bedside on rounds with Dr. Andersen. Patient underwent bowel prep last night and is scheduled for colonoscopy and second attempt at EGD today. Patient states she has been having difficulty swallowing and has not been taking all of her pills. She complains of a cough, but denies shortness of breath. She is on room air with oxygen saturations greater than 92% . She received one unit of blood yesterday for a hemoglobin of 7.6. Repeat hemoglobin last night was 9.7. Hemoglobin this morning is 9.0. Her blood pressure was elevated last night at 215/91. She did receive hydralazine IVP. Her blood pressure this morning has improved with a last reading of 135/64. Her swelling on her hands has improved. She does continue to have some lower extremity edema. She denies chest pain or pressure. Denies nausea or vomiting. Objective - Vital Signs Vital signs: Vital Signs Temp 97.6 F 09/08/17 07:41 Pulse 74 09/08/17 07:41 Resp 18 09/08/17 07:41 BP 135/64 09/08/17 07:41 Pulse Ox 97 09/08/17 07:41 Intake & Output 09/07/17 09/08/17 09/08/17 18:59 06:59 18:59 Intake Total 1310 300 100 Output Total 500 Balance 810 300 100 Weight 62.1 kg Intake: IV 300 100 Sodium Chloride 0.9% 1, 300 100 000 ml @ 50 mls/hr IV . Q20H [facility] Rx#:[id number] Intake, IV Titration 400 Amount Sodium Chloride 0.9% 1, 400 000 ml @ 50 mls/hr IV . Q20H [facility] Rx#:[id number] Oral 600 Blood Product 310 Rc Pheresis 2 As3 Unit 310 [id number] Output: Urine 500 Other: Voiding Method Toilet Toilet Toilet Bedside Commode Bedside Commode # Bowel Movements 1 - Exam GENERAL: This is a 82-year-old female in no apparent distress at the time of examination. Pleasant and cooperative. HEENT: Head is atraumatic, normocephalic. Pupils are equal, round, and reactive to light. Sclerae anicteric. Conjunctivae are clear. Mucus membranes of the mouth are moist. Neck is supple. RESPIRATORY: Clear to ausculation. No wheezes, rales, or rhonchi. No use of accessory muscles. Patient maintaining oxygen saturation greater than 92%. No chest wall tenderness is noted on palpation or with deep breathing. CARDIOVASCULAR: Regular rate and rhythm. S1 and S2 noted. No JVD noted. No S3 or S4 noted. GASTROINTESTINAL: No distention noted. Abdomen soft and round. Normal active bowel sounds auscultated x 4 quadrants. No pain or tenderness noted upon palpation. INTEGUMENTARY: No cyanosis. No jaundice. No rashes noted. No cellulitis noted. EXTREMITIES: 2+ peripheral pulses. +1 lower extremity edema. +1 edema to left hand and arm, improving. No calf tenderness noted. NEUROLOGIC: Cranial nerves II-XII intact. PSYCHIATRIC: Awake, alert, and oriented X 3. Appropriate affect. Intact judgement and insight. - Labs CBC & Chem 7: 09/08/17 05:14 09/08/17 05:14 Labs: Abnormal Lab Results - Last 24 Hours (Table) 09/07/17 09/07/17 09/08/17 Range/Units 10:00 18:35 05:14 WBC 3.4 L 3.0 L (3.8-10.6) k/uL RBC 3.48 L 3.26 L (3.80-5.40) m/uL Hgb 9.7 L D 9.0 L (11.4-16.0) gm/dL Hct 29.6 L 27.2 L (34.0-46.0) % Lymphocytes # 0.9 L (1.0-4.8) k/uL Chloride (98-107) mmol/L Calcium (8.4-10.2) mg/dL Crossmatch See Detail 09/08/17 Range/Units 05:14 WBC (3.8-10.6) k/uL RBC (3.80-5.40) m/uL Hgb (11.4-16.0) gm/dL Hct (34.0-46.0) % Lymphocytes # (1.0-4.8) k/uL Chloride 110 H (98-107) mmol/L Calcium 8.0 L (8.4-10.2) mg/dL Crossmatch Assessment and Plan Plan: ASSESSMENT: Hematemesis, suspect upper gastrointestinal bleeding, s/p aborted EGD secondary to inability to cannulate the esophagus Anemia, likely secondary to acute blood loss secondary to suspected upper GI bleed Complaints of congestion and cough with no evidence of respiratory distress or adventitious lung sounds, improving, chest xray negative for acute process History of coronary artery disease with previous myocardial infarction and multiple stent placements Chronic systolic congestive heart failure, echo from 04/2016 reveals ejection fraction of 30-35%, no evidence of acute exacerbation Essential hypertension Hyperlipidemia History of asthma, no evidence of acute exacerbation Neuropathy of bilateral lower extremities Anxiety, unspecified Depression, unspecified PLAN: -Dr. Gee on consult. Appreciate recommendations and input -Patient scheduled for colonoscopy and second attempt at EGD today -NPO until procedure then clear liquid diet -Home meds as appropriate -Continue to hold patient's aspirin and Plavix -Activity as tolerated -Encourage ambulation -Elevate extremities on pillow -Monitor labs -GI prophylaxis: Protonix 40mg IV BID -DVT prophylaxis: Antiembolism stockings to bilateral lower extremities -Monitor vital signs and address as appropriate -Discharge planning: Patient to return home when stable. Unsure at this time if she would like home care. -Further recommendations pending patient's course Nurse practitioner note has been reviewed by physician. Signing provider agrees with the documented findings, assessment, and plan of care.
[2017-09-08] MEDS: ALPRAZolam 0.25 MG TAB PO PRN ×2 (10:08→18:13)
--- NOTE | 2017-09-08 10:38 | P.PN ---
Progress Note - Text Progress Note Date: 09/08/17 82-year-old female seen and examined this morning at bedside patient is aware of the plan of care verbalizes understanding. no further episodes of hematemesis. Bowel prep nursing reports the stool was clear no blood noted. scheduled this morning for colonoscopy second attempt an EGD. Hemoglobin this morning 9 did receive 1 unit of packed red blood cells yesterday for hemoglobin of 7.6 await the findings from the EGD and colonoscopy with further surgical recommendations pending will follow with you The above impression and plan of care have been discussed and directed by signing physician. Greta Salmon nurse practitioner acting as scribe for signing physician.
[2017-09-08] MEDS ORDERED: MIDAZOLAM 2 MG/2 ML VIAL ONE (11:27)
[2017-09-08] MEDS ORDERED: fentaNYL (PF) 50 MCG/ML 2 ML AMP ONE (11:27)
[2017-09-08] MEDS ORDERED: LIDOCAINE 1% INJ 10MG/ML (20 ML MDV) ONE (11:27)
[2017-09-08] MEDS ORDERED: PROPOFOL 10 MG/ML 20 ML VIAL IV ONE (11:27)
[2017-09-08] MEDS ORDERED: IV FLUID CONTINUATION 600 ML IV ONE (11:42)
[2017-09-08 13:29] VITALS: BMI 26.7
--- NOTE | 2017-09-08 13:52 | P.OP ---
Date of Procedure: 09/08/17 Preoperative Diagnosis: GI bleed Postoperative Diagnosis: GI bleed Procedure(s) Performed: EGD Colonoscopy Anesthesia: MAC Surgeon: Rojas Gee Pathology: none sent Condition: stable Disposition: PACU Description of Procedure: The patient's placed on the endoscopy table in the lateral position. She received IV sedation. Multiple attempts were made to pass the gastroscope through the hypopharynx. 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 At this point scope was withdrawn. The patient was placed on the endoscopy table in the lateral position. Digital rectal examination was performed which revealed no abnormalities. Flexible colonoscope was then placed in the patient's anus and passed throughout the entire colon. The ileocecal valve was visualized. The cecum, ascending, transverse, descending and sigmoid colon were normal. The rectum was normal as well. There were no masses, polyps or diverticula noted in the entire colon. There was no blood seen in the colon.
--- NOTE | 2017-09-08 13:53 | P.PN ---
Progress Note - Text Progress Note Date: 09/08/17 The patient attended to have another upper endoscopy performed today. This was impossible due to her anatomy. For colonoscopy showed no evidence of blood. There dominic no evidence of bleeding in the colon. I discussed these findings with the patient's family. If the patient rebleeds she'll need to undergo tagged RBC scan as well as possible upper GI.
[2017-09-08 18:05] LABS: Glucose,Whole Blood 97 mg/dL (75-99)
[2017-09-08] MEDS: ATORVASTATIN 80 MG TAB PO SCH (21:37)
[2017-09-09 06:21] LABS: Basophils % (A) 0 %; Eosinophils % (A) 1 %; HCT 27.5 % (34.0-46.0); HGB 9.2 gm/dL (11.4-16.0); Lymphocytes # (A) 1.3 k/uL (1.0-4.8); Lymphocytes % (A) 39 %; MCH 28.5 pg (25.0-35.0); MCHC 33.3 g/dL (31.0-37.0); MCV 85.5 fL (80.0-100.0); Mean Platelet Volume 7.4; Monocytes # (A) 0.2 k/uL (0-1.0); Monocytes % (A) 6 %; Neutrophils # (A) 1.7 k/uL (1.3-7.7); Neutrophils % (A) 51 %; Platelet Count 199 k/uL (150-450); RBC 3.22 m/uL (3.80-5.40); RDW 14.8 % (11.5-15.5); WBC 3.3 k/uL (3.8-10.6)
[2017-09-09] MEDS: LISINOPRIL 5 MG TAB PO SCH (09:07)
[2017-09-09] MEDS: METOPROLOL TARTRATE 25 MG TAB PO SCH (09:07)
[2017-09-09] MEDS: guaiFENesin 600 MG TABLET.ER PO SCH (09:08)
[2017-09-09] MEDS: SPIRONOLACTONE 25 MG TAB PO SCH (09:08)
[2017-09-09] MEDS: PANTOPRAZOLE 40 MG/10 ML VIAL IV SCH (09:25)
[2017-09-09 10:45] VITALS: BP 128/60; PULSE 82; RESP 14; TEMP 96.4
--- NOTE | 2017-09-09 12:31 | P.PN ---
Subjective Progress Note Date: 09/09/17 Patient is an 82-year-old female with history of GI bleed. Clinically she is doing extremely well. She reports increased energy. She is tolerating diet. In fact she is eager to go home. No further reports of blood in stools or hematemesis. Objective - Vital Signs Vital signs: Vital Signs Temp 96.4 F L 09/09/17 08:00 Pulse 82 09/09/17 08:00 Resp 14 09/09/17 08:00 BP 128/60 09/09/17 08:00 Pulse Ox 98 09/09/17 08:00 Intake & Output 09/08/17 09/09/17 09/09/17 18:59 06:59 18:59 Intake Total 880 420 Output Total 0 Balance 880 0 420 Weight 62.1 kg 61.5 kg Intake: IV 300 Sodium Chloride 0.9% 1, 100 000 ml @ 50 mls/hr IV . Q20H [facility] Rx#:[id number] Oral 580 420 Output: Urine 0 Other: Voiding Method Toilet Toilet Toilet Bedside Commode Bedside Commode Bedside Commode # Voids 2 # Bowel Movements 1 - Exam GENERAL: Well developed and in no acute distress. Pleasant. HEENT: No sclera icterus. Extraocular movements grossly intact. Moist buccal mucosa. Head is atraumatic, normocephalic. Hears conversational speech. No nasal drainage. NECK: Supple without lymphadenopathy. CHEST: Non-labored respirations and equal bilateral excursions. CARDIOVASCULAR: Regular rate and rhythm. Palpable 2+ radial pulses. ABDOMEN: Soft, nontender. Nondistended. MUSCULOSKELETAL: No clubbing, cyanosis or edema. NEUROLOGIC: No focal or lateralizing signs. PSYCH: Appropriate affect. Alert and oriented to person, place and time. SKIN: Good skin turgor. Well perfused. - Labs CBC & Chem 7: 09/09/17 06:04 09/08/17 05:14 Labs: Abnormal Lab Results - Last 24 Hours (Table) 09/09/17 Range/Units 06:04 WBC 3.3 L (3.8-10.6) k/uL RBC 3.22 L (3.80-5.40) m/uL Hgb 9.2 L (11.4-16.0) gm/dL Hct 27.5 L (34.0-46.0) % Assessment and Plan (1) Nausea & vomiting Current Visit: Yes Status: Acute Code(s): R11.2 - NAUSEA WITH VOMITING, UNSPECIFIED SNOMED Code(s): 68670311 (2) Upper GI bleed Current Visit: Yes Status: Acute Code(s): K92.2 - GASTROINTESTINAL HEMORRHAGE, UNSPECIFIED SNOMED Code(s): 46787427 Plan: 1. Clinically her symptoms has resolved. 2. Her hemoglobin has been stable. 3. Patient is tolerating diet. 4. From a surgical standpoint, patient is stable for potential discharge. 5. Additional studies may be performed as outpatient. I am rounding on behalf of Dr. Gee
--- NOTE | 2017-09-09 15:39 | P.DS ---
Providers Date of admission: 09/05/17 15:21 Expected date of discharge: 09/09/17 Attending physician: Dagoberto Andersen Consults: 09/05/17 15:21 Consult Physician Routine Consulting Provider: Rojas Gee Consult Reason/Comments: Upper GI bleed Do you want consulting provider notified?: Yes Primary care physician: Dagoberto Andersen [facility] Course: Ms. Nieves is an 82-year-old feeling presented to the emergency room on 09/05/2017 with a chief complaint of nausea and bloody emesis x 1 day. Patient denies constipation or diarrhea. She states she has felt very weak for the last few days. Denies abdominal pain. States her appetite is good. Denies chest pain or pressure. She does state that she feels congested and has been coughing for a few days. Her cough is non-productive and she is requesting medication to help loosen her secretions. 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 She has had multiple stent placements. In the emergency room, a computed tomography scan of the abdomen and pelvis was completed which revealed findings suggestive of asked her enteritis, possible colitis. Patient's emesis was positive for occult blood. Laboratory results reveal white count 8.7, hemoglobin 13.5, platelet count 260, sodium 139, potassium 4.1, BUN 20, creatinine 0.67, and magnesium 1.6. Urinalysis reveals trace protein. The patient was admitted to the hospital under the care of Dr. Andersen. Dr. Gee was consulted for further evaluation. 09/07/2017 Patient was complaining of a cough yesterday which she states has improved. Denies shortness of breath. Chest x-ray completed on 09/06/2017 was negative for acute process. Patient underwent EGD 09/06/[address] Gee. The patient was found to have significant swelling in the oropharynx, the scope was exchanged for a pediatric scope however it was not possible to cannulate the esophagus. The procedure was stopped this time. She is currently tolerating a clear liquid breakfast. She denies further episodes of nausea or vomiting. She states she had a bowel movement and it was very dark in color. She is scheduled to undergo colonoscopy tomorrow with Dr. Gee. Patients hemoglobin is 7.6 today, down from 9.8 yesterday. 09/08/2017 Patient underwent bowel prep last night and is scheduled for colonoscopy and second attempt at EGD .She received one unit of blood yesterday for a hemoglobin of 7.6. Repeat hemoglobin last night was 9.7. Hemoglobin this morning is 9.0. During the EGD - Multiple attempts were made to pass the gastroscope through the hypopharynx. 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 So the scope was withdrawn. Colonoscopy - completed. She has been cleared by Surgery to be discharged home. She is clinically stable and being discharged home. GENERAL: This is a 82-year-old female in no apparent distress at the time of examination. Pleasant and cooperative. HEENT: Head is atraumatic, normocephalic. Pupils are equal, round, and reactive to light. Sclerae anicteric. Conjunctivae are clear. Mucus membranes of the mouth are moist. Neck is supple. RESPIRATORY: Clear to ausculation. No wheezes, rales, or rhonchi. No use of accessory muscles. Patient maintaining oxygen saturation greater than 92%. No chest wall tenderness is noted on palpation or with deep breathing. CARDIOVASCULAR: Regular rate and rhythm. S1 and S2 noted. No JVD noted. No S3 or S4 noted. GASTROINTESTINAL: No distention noted. Abdomen soft and round. Normal active bowel sounds auscultated x 4 quadrants. No pain or tenderness noted upon palpation. INTEGUMENTARY: No cyanosis. No jaundice. No rashes noted. No cellulitis noted. EXTREMITIES: 2+ peripheral pulses. +1 lower extremity edema. +1 edema to left hand and arm, improving. No calf tenderness noted. NEUROLOGIC: Cranial nerves II-XII intact. PSYCHIATRIC: Awake, alert, and oriented X 3. Appropriate affect. Intact judgement and insight. DISCHARGE DIAGNOSIS 1. Hematemesis, suspect upper gastrointestinal bleeding, s/p aborted EGD secondary to inability to cannulate the esophagus 2. Anemia, likely secondary to acute blood loss secondary to suspected upper GI bleed 3. Complaints of congestion and cough with no evidence of respiratory distress or adventitious lung sounds, improving, chest xray negative for acute process 4. History of coronary artery disease with previous myocardial infarction and multiple stent placements 5. Chronic systolic congestive heart failure, echo from 04/2016 reveals ejection fraction of 30-35%, no evidence of acute exacerbation 6. Essential hypertension 7. Hyperlipidemia 8. History of asthma, no evidence of acute exacerbation 9. Neuropathy of bilateral lower extremities 10. Anxiety, unspecified 11. Depression, unspecified Patient Condition at Discharge: Stable Plan - Discharge Summary Discharge Rx Participant: No New Discharge Prescriptions: Continue Atorvastatin [Lipitor] 80 mg PO HS #30 tab Clopidogrel [Plavix] 75 mg PO DAILY #30 tab Lisinopril [Zestril] 5 mg PO BID #60 tab Metoprolol Tartrate [Lopressor] 25 mg PO BID #30 tab Spironolactone [Aldactone] 25 mg PO DAILY #30 tab Aspirin EC [Ecotrin Low Dose] 81 mg PO DAILY Discharge Medication List Atorvastatin [Lipitor] 80 mg PO HS #30 tab 05/19/16 [Rx] Clopidogrel [Plavix] 75 mg PO DAILY #30 tab 05/19/16 [Rx] Lisinopril [Zestril] 5 mg PO BID #60 tab 05/19/16 [Rx] Metoprolol Tartrate [Lopressor] 25 mg PO BID #30 tab 05/19/16 [Rx] Spironolactone [Aldactone] 25 mg PO DAILY #30 tab 05/19/16 [Rx] Aspirin EC [Ecotrin Low Dose] 81 mg PO DAILY 07/30/16 [History] Follow up Appointment(s)/Referral(s): Dagoberto Andersen DO [Primary Care Provider] - 1-2 days Rojas Gee MD [STAFF PHYSICIAN] - 1 Week Discharge Disposition: HOME SELF-CARE
== END 2017-09-09 16:18 | disposition home or self-care (01) | DRG 378 ==
LOC: EC 12:26 → 6SEL 15:21
PROVIDERS: ADMIT Family Medicine; ATTEND Family Medicine
PROC: 0DJ08ZZ Inspection of Upper Intestinal Tract, Via Natural or Artificial Opening Endoscopic (ICD-10-PCS; principal; 2017-09-06 08:30)
PROC: 30233N1 Transfusion of Nonautologous Red Blood Cells into Peripheral Vein, Percutaneous Approach (ICD-10-PCS; 2017-09-07)
PROC: 0DJ08ZZ Inspection of Upper Intestinal Tract, Via Natural or Artificial Opening Endoscopic (ICD-10-PCS; 2017-09-08)
PROC: 0DJD8ZZ Inspection of Lower Intestinal Tract, Via Natural or Artificial Opening Endoscopic (ICD-10-PCS; 2017-09-08)
DX: K92.0 Hematemesis (principal); D62 Acute posthemorrhagic anemia; G62.9 Polyneuropathy, unspecified; I50.22 Chronic systolic (congestive) heart failure; I11.0 Hypertensive heart disease with heart failure; K22.2 Esophageal obstruction; K59.09 Other constipation; E78.5 Hyperlipidemia, unspecified; I25.10 Atherosclerotic heart disease of native coronary artery without angina pectoris; J45.909 Unspecified asthma, uncomplicated; I25.2 Old myocardial infarction; L30.9 Dermatitis, unspecified; F32.9 Major depressive disorder, single episode, unspecified; F41.9 Anxiety disorder, unspecified; Z53.9 Procedure and treatment not carried out, unspecified reason; Z79.02 Long term (current) use of antithrombotics/antiplatelets; Z79.82 Long term (current) use of aspirin; Z79.899 Other long term (current) drug therapy; Z88.1 Allergy status to other antibiotic agents; Z95.5 Presence of coronary angioplasty implant and graft; Z90.710 Acquired absence of both cervix and uterus; Z86.73 Personal history of transient ischemic attack (TIA), and cerebral infarction without residual deficits
CPT/HCPCS: 36415; 43239; 45378; 71046; 74177; 80048; 80053; 81003; 82150; 82271; 83690; 83735; 84100; 85025; 85027; 85610; 85730; 86850; 86900; 86901; 86920; 87086; 93005; 96361; 96374; 96375; 99285

== ENCOUNTER 2017-09-18 11:24 | Emergency (ER) | payer MEDICARE, BC ==
[2017-09-18 11:39] VITALS: TEMP 98.6
[2017-09-18] MEDS ORDERED: SODIUM CHLORIDE 0.9% 1,000 ML IV STA (11:51)
[2017-09-18] MEDS ORDERED: SODIUM CHLORIDE 0.9% 500 ML IV STA (11:51)
--- NOTE | 2017-09-18 11:57 | ED ---
General Adult HPI - General Chief complaint: Recheck/Abnormal Lab/Rx Time Seen by Provider: 09/18/17 11:51 Source: patient, family, RN notes reviewed, old records reviewed Mode of arrival: wheelchair Limitations: no limitations - History of Present Illness Initial comments: This is an 82-year-old female to the ER for evaluation. Patient presented today for evaluation regarding possible blood hemoglobin, has history of low hemoglobin. Patient does admit to recent nosebleed. Recent transfusion secondary low hemoglobin. Patient was sent today for barium swallow unable to make it history secondary to weakness. - Related Data Home Medications Medication Instructions Recorded Confirmed ALPRAZolam [Xanax] 0.125 - 0.25 mg PO DAILY PRN 09/18/17 09/18/17 Previous Rx's Medication Instructions Recorded Atorvastatin [Lipitor] 80 mg PO HS #30 tab 05/19/16 Lisinopril [Zestril] 5 mg PO BID #60 tab 05/19/16 Metoprolol Tartrate [Lopressor] 25 mg PO BID #30 tab 05/19/16 Spironolactone [Aldactone] 25 mg PO DAILY #30 tab 05/19/16 Allergies Allergy/AdvReac Type Severity Reaction Status Date / Time cephalexin [From Keflex] AdvReac Cramps Verified 09/18/17 12:12 Review of Systems ROS Statement: Those systems with pertinent positive or pertinent negative responses have been documented in the HPI. ROS Other: All systems not noted in ROS Statement are negative. Past Medical History Past Medical History: Asthma, Coronary Artery Disease (CAD), CVA/TIA, Hyperlipidemia, Hypertension, Myocardial Infarction (DE), Skin Disorder Additional Past Medical History / Comment(s): allergic asthma, occ palpitations , eczema, neuropathy bilateral lower legs and feet, edema lower legs at times, starting of cataracts bilaterally. Last Myocardial Infarction Date:: 04/2016 History of Any Multi-Drug Resistant Organisms: None Reported Past Surgical History: Heart Catheterization With Stent, Hysterectomy Additional Past Surgical History / Comment(s): 10 cardiac stents, colonoscopy Past Anesthesia/Blood Transfusion Reactions: No Reported Reaction Date of Last Stent Placement:: 06/08/16 Past Psychological History: Anxiety, Depression Smoking Status: Never smoker Past Alcohol Use History: None Reported Past Drug Use History: None Reported - Past Family History Son(s) Family Medical History: Cancer Father Family Medical History: Cancer Additional Family Medical History / Comment(s): Father of colon cancer when he was "elderly" Mother Family Medical History: CVA/TIA Additional Family Medical History / Comment(s): Mother at 89yrs a year after a massive CVA that left her paralyzed. General Exam Limitations: no limitations General appearance: alert, in no apparent distress Head exam: Present: atraumatic, normocephalic, normal inspection Eye exam: Present: normal appearance, PERRL, EOMI. Absent: scleral icterus, conjunctival injection, periorbital swelling ENT exam: Present: normal exam, mucous membranes moist Neck exam: Present: normal inspection. Absent: tenderness, meningismus, lymphadenopathy Respiratory exam: Present: normal lung sounds bilaterally. Absent: respiratory distress, wheezes, rales, rhonchi, stridor Cardiovascular Exam: Present: regular rate, normal rhythm, normal heart sounds. Absent: systolic murmur, diastolic murmur, rubs, gallop, clicks GI/Abdominal exam: Present: soft, normal bowel sounds. Absent: distended, tenderness, guarding, rebound, rigid Extremities exam: Present: normal inspection, full ROM, normal capillary refill. Absent: tenderness, pedal edema, joint swelling, calf tenderness Back exam: Present: normal inspection Neurological exam: Present: alert, oriented X3, CN II-XII intact Psychiatric exam: Present: normal affect, normal mood Skin exam: Present: warm, dry, intact, normal color. Absent: rash Course Vital Signs 09/18/17 09/18/17 09/18/17 11:35 12:18 13:55 Temperature 98.6 F Pulse Rate 69 61 60 Respiratory 18 16 16 Rate Blood Pressure 155/70 162/73 154/70 O2 Sat by Pulse 98 98 98 Oximetry 09/18/17 15:17 Temperature Pulse Rate 81 Respiratory 16 Rate Blood Pressure 171/79 O2 Sat by Pulse 100 Oximetry EKG Findings - EKG Comments: EKG Findings:: EKG shows sinus rhythm rate of 64, VA 182, QRS 74, QTC 418 Medical Decision Making - Medical Decision Making Neurologic: 82 female the ER for evaluation. Patient presents today for evaluation weakness possible halo. Patient's earlobe is normal, no signs of flu. Patient states that this time she does feel better will be discharged home - Lab Data Result diagrams: 09/18/17 12:09 09/18/17 12:09 Lab Results 09/18/17 09/18/17 09/18/17 Range/Units 12:09 12:09 12:09 WBC 4.3 (3.8-10.6) k/uL RBC 3.93 (3.80-5.40) m/uL Hgb 10.7 L (11.4-16.0) gm/dL Hct 33.6 L (34.0-46.0) % MCV 85.4 (80.0-100.0) fL MCH 27.2 (25.0-35.0) pg MCHC 31.9 (31.0-37.0) g/dL RDW 13.3 (11.5-15.5) % Plt Count 331 (150-450) k/uL Neutrophils % 54 % Lymphocytes % 35 % Monocytes % 7 % Eosinophils % 1 % Basophils % 0 % Neutrophils # 2.3 (1.3-7.7) k/uL Lymphocytes # 1.5 (1.0-4.8) k/uL Monocytes # 0.3 (0-1.0) k/uL Eosinophils # 0.0 (0-0.7) k/uL Basophils # 0.0 (0-0.2) k/uL Hypochromasia Slight PT (9.0-12.0) sec INR (<1.2) APTT (22.0-30.0) sec Sodium 139 (137-145) mmol/L Potassium 4.5 (3.5-5.1) mmol/L Chloride 106 (98-107) mmol/L Carbon Dioxide 24 (22-30) mmol/L Anion Gap 9 mmol/L BUN 14 (7-17) mg/dL Creatinine 0.67 (0.52-1.04) mg/dL Est GFR (MDRD) Af Amer >60 (>60 ml/min/1.73 sqM) Est GFR (MDRD) Non-Af >60 (>60 ml/min/1.73 sqM) Glucose 99 (74-99) mg/dL Calcium 8.7 (8.4-10.2) mg/dL Magnesium 2.0 (1.6-2.3) mg/dL Total Bilirubin 0.2 (0.2-1.3) mg/dL AST 22 (14-36) U/L ALT 21 (9-52) U/L Alkaline Phosphatase 77 (38-126) U/L Total Creatine Kinase 30 (30-135) U/L CK-MB (CK-2) 0.5 (0.0-2.4) ng/mL CK-MB (CK-2) Rel Index 1.7 Troponin I <0.012 (0.000-0.034) ng/mL Total Protein 6.3 (6.3-8.2) g/dL Albumin 3.5 (3.5-5.0) g/dL Urine Color Urine Appearance (Clear) Urine pH (5.0-8.0) Ur Specific Edgar (1.001-1.035) Urine Protein (Negative) Urine Glucose (UA) (Negative) Urine Ketones (Negative) Urine Blood (Negative) Urine Nitrite (Negative) Urine Bilirubin (Negative) Urine Urobilinogen (<2.0) mg/dL Ur Leukocyte Esterase (Negative) Urine WBC (0-5) /hpf Influenza Type A RNA (Not Detectd) Influenza Type B (PCR) (Not Detectd) Blood Type Blood Type Recheck Antibody Screen Spec Expiration Date 09/18/17 09/18/17 09/18/17 Range/Units 12:09 12:09 13:54 WBC (3.8-10.6) k/uL RBC (3.80-5.40) m/uL Hgb (11.4-16.0) gm/dL Hct (34.0-46.0) % MCV (80.0-100.0) fL MCH (25.0-35.0) pg MCHC (31.0-37.0) g/dL RDW (11.5-15.5) % Plt Count (150-450) k/uL Neutrophils % % Lymphocytes % % Monocytes % % Eosinophils % % Basophils % % Neutrophils # (1.3-7.7) k/uL Lymphocytes # (1.0-4.8) k/uL Monocytes # (0-1.0) k/uL Eosinophils # (0-0.7) k/uL Basophils # (0-0.2) k/uL Hypochromasia PT 10.2 (9.0-12.0) sec INR 1.0 (<1.2) APTT 23.5 (22.0-30.0) sec Sodium (137-145) mmol/L Potassium (3.5-5.1) mmol/L Chloride (98-107) mmol/L Carbon Dioxide (22-30) mmol/L Anion Gap mmol/L BUN (7-17) mg/dL Creatinine (0.52-1.04) mg/dL Est GFR (MDRD) Af Amer (>60 ml/min/1.73 sqM) Est GFR (MDRD) Non-Af (>60 ml/min/1.73 sqM) Glucose (74-99) mg/dL Calcium (8.4-10.2) mg/dL Magnesium (1.6-2.3) mg/dL Total Bilirubin (0.2-1.3) mg/dL AST (14-36) U/L ALT (9-52) U/L Alkaline Phosphatase (38-126) U/L Total Creatine Kinase (30-135) U/L CK-MB (CK-2) (0.0-2.4) ng/mL CK-MB (CK-2) Rel Index Troponin I (0.000-0.034) ng/mL Total Protein (6.3-8.2) g/dL Albumin (3.5-5.0) g/dL Urine Color Urine Appearance (Clear) Urine pH (5.0-8.0) Ur Specific Edgar (1.001-1.035) Urine Protein (Negative) Urine Glucose (UA) (Negative) Urine Ketones (Negative) Urine Blood (Negative) Urine Nitrite (Negative) Urine Bilirubin (Negative) Urine Urobilinogen (<2.0) mg/dL Ur Leukocyte Esterase (Negative) Urine WBC (0-5) /hpf Influenza Type A RNA Not Detected (Not Detectd) Influenza Type B (PCR) Not Detected (Not Detectd) Blood Type O Positive Blood Type Recheck No Antibody Screen NEGATIVE Spec Expiration Date 09/21/2017 - 230809/18/17 Range/Units 13:54 WBC (3.8-10.6) k/uL RBC (3.80-5.40) m/uL Hgb (11.4-16.0) gm/dL Hct (34.0-46.0) % MCV (80.0-100.0) fL MCH (25.0-35.0) pg MCHC (31.0-37.0) g/dL RDW (11.5-15.5) % Plt Count (150-450) k/uL Neutrophils % % Lymphocytes % % Monocytes % % Eosinophils % % Basophils % % Neutrophils # (1.3-7.7) k/uL Lymphocytes # (1.0-4.8) k/uL Monocytes # (0-1.0) k/uL Eosinophils # (0-0.7) k/uL Basophils # (0-0.2) k/uL Hypochromasia PT (9.0-12.0) sec INR (<1.2) APTT (22.0-30.0) sec Sodium (137-145) mmol/L Potassium (3.5-5.1) mmol/L Chloride (98-107) mmol/L Carbon Dioxide (22-30) mmol/L Anion Gap mmol/L BUN (7-17) mg/dL Creatinine (0.52-1.04) mg/dL Est GFR (MDRD) Af Amer (>60 ml/min/1.73 sqM) Est GFR (MDRD) Non-Af (>60 ml/min/1.73 sqM) Glucose (74-99) mg/dL Calcium (8.4-10.2) mg/dL Magnesium (1.6-2.3) mg/dL Total Bilirubin (0.2-1.3) mg/dL AST (14-36) U/L ALT (9-52) U/L Alkaline Phosphatase (38-126) U/L Total Creatine Kinase (30-135) U/L CK-MB (CK-2) (0.0-2.4) ng/mL CK-MB (CK-2) Rel Index Troponin I (0.000-0.034) ng/mL Total Protein (6.3-8.2) g/dL Albumin (3.5-5.0) g/dL Urine Color Light Yellow Urine Appearance Clear (Clear) Urine pH 6.5 (5.0-8.0) Ur Specific Edgar 1.004 (1.001-1.035) Urine Protein Negative (Negative) Urine Glucose (UA) Negative (Negative) Urine Ketones Negative (Negative) Urine Blood Negative (Negative) Urine Nitrite Negative (Negative) Urine Bilirubin Negative (Negative) Urine Urobilinogen <2.0 (<2.0) mg/dL Ur Leukocyte Esterase Small H (Negative) Urine WBC 3 (0-5) /hpf Influenza Type A RNA (Not Detectd) Influenza Type B (PCR) (Not Detectd) Blood Type Blood Type Recheck Antibody Screen Spec Expiration Date Disposition Clinical Impression: Weakness Disposition: HOME SELF-CARE Condition: Good Instructions: Weakness (ED) Referrals: Dagoberto Andersen DO [Primary Care Provider] - 1-2 days
[2017-09-18 12:19] VITALS: RESP 16
[2017-09-18 12:24] LABS: Basophils % (A) 0 %; Eosinophils % (A) 1 %; HCT 33.6 % (34.0-46.0); HGB 10.7 gm/dL (11.4-16.0); Hypochromasia Slight; Lymphocytes # (A) 1.5 k/uL (1.0-4.8); Lymphocytes % (A) 35 %; MCH 27.2 pg (25.0-35.0); MCHC 31.9 g/dL (31.0-37.0); MCV 85.4 fL (80.0-100.0); Mean Platelet Volume 6.9; Monocytes # (A) 0.3 k/uL (0-1.0); Monocytes % (A) 7 %; Neutrophils # (A) 2.3 k/uL (1.3-7.7); Neutrophils % (A) 54 %; Platelet Count 331 k/uL (150-450); RBC 3.93 m/uL (3.80-5.40); RDW 13.3 % (11.5-15.5); WBC 4.3 k/uL (3.8-10.6)
[2017-09-18 12:36] LABS: Partial Thromboplastin Time 23.5 sec (22.0-30.0); Prothrombin Time 10.2 sec (9.0-12.0)
[2017-09-18 12:37] LABS: ALT 21 U/L (9-52); AST 22 U/L (14-36); Albumin 3.5 g/dL (3.5-5.0); Alkaline Phosphatase 77 U/L (38-126); Anion Gap 9 mmol/L; Blood Urea Nitrogen 14 mg/dL (7-17); Calcium 8.7 mg/dL (8.4-10.2); Carbon Dioxide 24 mmol/L (22-30); Chloride 106 mmol/L (98-107); Glucose 99 mg/dL (74-99); Potassium 4.5 mmol/L (3.5-5.1); Sodium 139 mmol/L (137-145); Total Bilirubin 0.2 mg/dL (0.2-1.3); Total Protein 6.3 g/dL (6.3-8.2)
[2017-09-18 12:50] LABS: Creatine Kinase 30 U/L (30-135)
[2017-09-18 13:03] LABS: Creatine Kinase MB 0.5 ng/mL (0.0-2.4); Troponin I <0.012 ng/mL (0.000-0.034)
[2017-09-18 14:29] LABS: Appearance,Urine Clear (Clear); Bilirubin,Urine Negative (Negative); Blood,Urine Negative (Negative); Color,Urine Light Yellow; Glucose,Urine (UA) Negative (Negative); Ketones,Urine Negative (Negative); Leukocyte Esterase,Urine Small (Negative); Nitrite,Urine Negative (Negative); PH, Urine 6.5 (5.0-8.0); Protein,Urine Negative (Negative); Specific Gravity,Urine 1.004 (1.001-1.035); Urobilinogen,Urine <2.0 mg/dL (<2.0); WBC,Urine 3 /hpf (0-5)
[2017-09-18 15:19] VITALS: BP 171/79; PULSE 81
--- NOTE | 2017-09-18 15:46 | FL ---
EXAMINATION TYPE: FL barium swallow w video DATE OF EXAM: 09/18/2017 MODIFIED SWALLOW / DEGLUTITION STUDY CLINICAL HISTORY: Dysphagia. TECHNIQUE: Deglutition study is performed utilizing thin liquid barium, honey and nectar thick liqui d barium, barium thick applesauce, and barium coated cracker. A total of 1 minute 50 seconds of fluor oscopic time was utilized during procedure. Approximately 10 cine images were performed. 0 images are saved to PACS. COMPARISON: None. FINDINGS: There is reversal of normal cervical curvature centered L5 level with moderate spurring and joint space loss lower cervical levels. The oral and pharyngeal phases show satisfactory initiation and propagation with all modalities tested. Some mass effect along posterior wall of proximal esophag us due to cervical spurring is seen not causing significant obstruction. Normal mastication is seen w ith solid modalities tested. There is no evidence of penetration or aspiration with any modality jay ryan. No significant pharyngeal residue was appreciated. IMPRESSION: No penetration or aspiration is visualized. Please refer to speech therapist notes for f urther details if necessary.
== END 2017-09-18 15:18 | disposition home or self-care (01) ==
LOC: EC 11:24 → EDSTATUS 11:30 → EC 15:18
DX: R53.1 Weakness (principal); Z88.1 Allergy status to other antibiotic agents; Z86.73 Personal history of transient ischemic attack (TIA), and cerebral infarction without residual deficits
CPT/HCPCS: 36415; 74230; 80053; 81001; 82550; 82553; 83735; 84484; 85025; 85610; 85730; 86850; 86900; 86901; 87086; 87502; 96360; 96361; 99285

== ENCOUNTER → 2017-10-25 | Outpatient (CLI) | payer MEDICARE, BC ==
[2017-10-25 15:28] LABS: HCT 36.6 % (34.0-46.0); HGB 11.8 gm/dL (11.4-16.0); Hypochromasia Moderate; MCH 25.6 pg (25.0-35.0); MCHC 32.4 g/dL (31.0-37.0); Mean Platelet Volume 7.2; Platelet Count 284 k/uL (150-450); Poikilocytosis Slight; RBC 4.63 m/uL (3.80-5.40); RDW 13.3 % (11.5-15.5); WBC 4.8 k/uL (3.8-10.6)
== END | disposition home or self-care (01) ==
LOC: LABWHC1 15:19
PROVIDERS: ATTEND Internal Medicine Interventional Cardiology
DX: D64.9 Anemia, unspecified (principal)
CPT/HCPCS: 36415; 85027

== ENCOUNTER → 2017-11-30 | Outpatient (CLI) | payer MEDICARE, BC ==
[2017-11-30 17:53] LABS: HGB 10.8 gm/dL (11.4-16.0); Hypochromasia Moderate; MCH 24.3 pg (25.0-35.0); MCHC 31.8 g/dL (31.0-37.0); MCV 76.2 fL (80.0-100.0); Mean Platelet Volume 7.3; Microcytosis Slight; Platelet Count 243 k/uL (150-450); RBC 4.46 m/uL (3.80-5.40); RDW 15.1 % (11.5-15.5); WBC 5.1 k/uL (3.8-10.6)
== END | disposition home or self-care (01) ==
LOC: LABWHC1 16:54
PROVIDERS: ATTEND Surgery
DX: D64.9 Anemia, unspecified (principal)
CPT/HCPCS: 36415; 85027

== ENCOUNTER → 2017-12-04 | Outpatient (CLI) | payer MEDICARE, BC ==
[2017-12-04 10:08] LABS: HCT 35.9 % (34.0-46.0); HGB 11.3 gm/dL (11.4-16.0); Hypochromasia Moderate; MCH 23.9 pg (25.0-35.0); MCHC 31.5 g/dL (31.0-37.0); MCV 75.9 fL (80.0-100.0); Mean Platelet Volume 7.5; Microcytosis Slight; Platelet Count 246 k/uL (150-450); RBC 4.74 m/uL (3.80-5.40); RDW 15.1 % (11.5-15.5); WBC 4.8 k/uL (3.8-10.6)
== END | disposition home or self-care (01) ==
LOC: LABWHC1 09:46
PROVIDERS: ATTEND Surgery
DX: D64.9 Anemia, unspecified (principal)
CPT/HCPCS: 36415; 85027

== ENCOUNTER 2019-08-17 12:37 | Emergency (ER) | payer MEDICARE, BC ==
[2019-08-17 12:46] VITALS: RESP 18
[2019-08-17] MEDS ORDERED: FAMOTIDINE 20 MG/2 ML VIAL IV STA (12:58)
[2019-08-17] MEDS ORDERED: diphenhydrAMINE 50 MG/ML 1 ML VIAL IVP STA (12:58)
[2019-08-17] MEDS ORDERED: SODIUM CHLORIDE 0.9% 500 ML 500 ML IV ONE (13:00)
[2019-08-17 13:17] LABS: Basophils % (A) 0 %; Eosinophils % (A) 0 %; HCT 42.3 % (34.0-46.0); HGB 13.9 gm/dL (11.4-16.0); Lymphocytes # (A) 1.4 k/uL (1.0-4.8); Lymphocytes % (A) 13 %; MCH 27.3 pg (25.0-35.0); MCHC 32.8 g/dL (31.0-37.0); MCV 83.2 fL (80.0-100.0); Mean Platelet Volume 7.8; Monocytes # (A) 0.6 k/uL (0-1.0); Monocytes % (A) 6 %; Neutrophils # (A) 8.3 k/uL (1.3-7.7); Neutrophils % (A) 80 %; Platelet Count 258 k/uL (150-450); RBC 5.08 m/uL (3.80-5.40); RDW 12.8 % (11.5-15.5); WBC 10.4 k/uL (3.8-10.6)
--- NOTE | 2019-08-17 13:24 | XR ---
EXAMINATION TYPE: XR chest 2V DATE OF EXAM: 08/17/2019 COMPARISON: Chest x-ray September 06, 2017. HISTORY: Shortness of breath. TECHNIQUE: Frontal and lateral views of the chest are obtained. FINDINGS: There is no focal air space opacity, pleural effusion, or pneumothorax seen. The cardiac silhouette size is now enlarged with atherosclerotic aorta. New Coronary stent suspected anterior s uperior aspect likely proximal LAD distribution Overlying EKG leads redemonstrated. The osseous struc tures are intact. IMPRESSION: New cardiomegaly without acute pulmonary process.
[2019-08-17 13:26] LABS: ALT 15 U/L (4-34); AST 28 U/L (14-36); African American GFR (CKD) >90 (>60 ml/min/1.73 sqM); Albumin 4.5 g/dL (3.5-5.0); Alkaline Phosphatase 85 U/L (38-126); Anion Gap 10 mmol/L; Blood Urea Nitrogen 13 mg/dL (7-17); Calcium 9.6 mg/dL (8.4-10.2); Carbon Dioxide 25 mmol/L (22-30); Chloride 102 mmol/L (98-107); Glucose 126 mg/dL (74-99); Non-African American GFR(CKD) 80 (>60 ml/min/1.73 sqM); Potassium 5.1 mmol/L (3.5-5.1); Sodium 137 mmol/L (137-145); Total Bilirubin 0.5 mg/dL (0.2-1.3); Total Protein 7.8 g/dL (6.3-8.2)
--- NOTE | 2019-08-17 13:36 | ED ---
General Adult HPI - General Chief complaint: Allergic Reaction Stated complaint: allergic rxn Time Seen by Provider: 08/17/19 12:49 Source: patient, RN notes reviewed, old records reviewed Mode of arrival: ambulatory Limitations: no limitations - History of Present Illness Initial comments: 84-year-old female presenting for evaluation of suspected ALLERGIC reaction. Patient has had a rash on her back for several weeks, she had initially tried steroid cream and yesterday was prescribed a Medrol Dosepak. She took this medication initially yesterday and then again this morning. Approximately one hour after ingesting this medication this morning she had flushed feeling in her face, she had a fullness in her throat. Mild dyspnea. She had some nausea. No abdominal pain or vomiting. No chest pain. Patient has history of CAD status post stenting. She has history of hypertension and does state that she took her antihypertensive medications late at approximately noon which was one hour prior to arrival. She also reports a mild headache associated with these symptoms. - Related Data Home Medications Medication Instructions Recorded Confirmed ALPRAZolam [Xanax] 0.125 - 0.25 mg PO DAILY PRN 09/18/17 09/18/17 Previous Rx's Medication Instructions Recorded Atorvastatin [Lipitor] 80 mg PO HS #30 tab 05/19/16 Lisinopril [Zestril] 5 mg PO BID #60 tab 05/19/16 Metoprolol Tartrate [Lopressor] 25 mg PO BID #30 tab 05/19/16 Spironolactone [Aldactone] 25 mg PO DAILY #30 tab 05/19/16 Allergies Allergy/AdvReac Type Severity Reaction Status Date / Time cephalexin [From Keflex] AdvReac Cramps Verified 08/17/19 12:43 Review of Systems ROS Statement: Those systems with pertinent positive or pertinent negative responses have been documented in the HPI. ROS Other: All systems not noted in ROS Statement are negative. Past Medical History Past Medical History: Asthma, Coronary Artery Disease (CAD), CVA/TIA, Hyperlipidemia, Hypertension, Myocardial Infarction ([place]), Skin Disorder Additional Past Medical History / Comment(s): allergic asthma, occ palpitations, eczema, neuropathy bilateral lower legs and feet, edema lower legs at times, starting of cataracts bilaterally. Last Myocardial Infarction Date:: 04/2016 History of Any Multi-Drug Resistant Organisms: None Reported Past Surgical History: Heart Catheterization With Stent, Hysterectomy Additional Past Surgical History / Comment(s): 10 cardiac stents, colonoscopy Past Anesthesia/Blood Transfusion Reactions: No Reported Reaction Date of Last Stent Placement:: 06/08/16 Past Psychological History: Anxiety, Depression Smoking Status: Never smoker Past Alcohol Use History: None Reported Past Drug Use History: None Reported - Past Family History Son(s) Family Medical History: Cancer Father Family Medical History: Cancer Additional Family Medical History / Comment(s): Father of colon cancer when he was "elderly" Mother Family Medical History: CVA/TIA Additional Family Medical History / Comment(s): Mother at 89yrs a year after a massive CVA that left her paralyzed. General Exam Limitations: no limitations General appearance: alert, in no apparent distress Head exam: Present: atraumatic, normocephalic Eye exam: Present: normal appearance, PERRL ENT exam: Present: mucous membranes dry, other (Bilateral erythema and flushing of the cheeks) Neck exam: Present: normal inspection. Absent: tenderness, meningismus Respiratory exam: Present: normal lung sounds bilaterally. Absent: respiratory distress, stridor Cardiovascular Exam: Present: regular rate, normal rhythm GI/Abdominal exam: Present: soft. Absent: distended, tenderness Extremities exam: Present: normal inspection, normal capillary refill. Absent: pedal edema Neurological exam: Present: alert, oriented X3, CN II-XII intact. Absent: motor sensory deficit Psychiatric exam: Present: normal affect, normal mood Skin exam: Present: warm, dry, intact, erythema. Absent: cyanosis, diaphoretic Course Vital Signs 08/17/19 08/17/19 08/17/19 12:43 14:00 14:40 Temperature 97.6 F 97.8 F Pulse Rate 71 55 L 59 L Respiratory 18 18 18 Rate Blood Pressure 199/85 169/72 165/75 O2 Sat by Pulse 100 100 100 Oximetry EKG Findings - EKG Comments: EKG Findings:: EKG: Sinus bradycardia with PVC, rate of 56, SC interval 178, QRS duration 76, QTC 438, similar appearance to previous EKG in August 2017. No ST segment elevation. Medical Decision Making - Medical Decision Making 84-year-old female with suspected ALLERGIC reaction, adverse reaction to recently initiated Medrol Dosepak. Patient has flushed cheeks, vague headache fullness in her throat. She is well-appearing, she is hypertensive but had taken her blood pressure medications late in the day. She has a normal CBC, normal CMP chest x-ray showing cardiomegaly which is new compared to previous x- ray 2 years prior. 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 She will follow-up with her primary care and leather roller regarding this new cardiomegaly. She's given a dose of Pepcid and Benadryl and symptoms significantly improved, headache resolved, flushing of the cheeks is improved, no dyspnea, no vomiting. Her vital signs. Including down trending blood pressure without treatment in the emergency department. - Lab Data Result diagrams: 08/17/19 12:54 08/17/19 12:54 Lab Results 08/17/19 08/17/19 Range/Units 12:54 12:54 WBC 10.4 (3.8-10.6) k/uL RBC 5.08 (3.80-5.40) m/uL Hgb 13.9 (11.4-16.0) gm/dL Hct 42.3 (34.0-46.0) % MCV 83.2 (80.0-100.0) fL MCH 27.3 (25.0-35.0) pg MCHC 32.8 (31.0-37.0) g/dL RDW 12.8 (11.5-15.5) % Plt Count 258 (150-450) k/uL Neutrophils % 80 % Lymphocytes % 13 % Monocytes % 6 % Eosinophils % 0 % Basophils % 0 % Neutrophils # 8.3 H (1.3-7.7) k/uL Lymphocytes # 1.4 (1.0-4.8) k/uL Monocytes # 0.6 (0-1.0) k/uL Eosinophils # 0.0 (0-0.7) k/uL Basophils # 0.0 (0-0.2) k/uL Sodium 137 (137-145) mmol/L Potassium 5.1 (3.5-5.1) mmol/L Chloride 102 (98-107) mmol/L Carbon Dioxide 25 (22-30) mmol/L Anion Gap 10 mmol/L BUN 13 (7-17) mg/dL Creatinine 0.69 (0.52-1.04) mg/dL Est GFR (CKD-EPI)AfAm >90 (>60 ml/min/1.73 sqM) Est GFR (CKD-EPI)NonAf 80 (>60 ml/min/1.73 sqM) Glucose 126 H (74-99) mg/dL Calcium 9.6 (8.4-10.2) mg/dL Total Bilirubin 0.5 (0.2-1.3) mg/dL AST 28 (14-36) U/L ALT 15 (4-34) U/L Alkaline Phosphatase 85 (38-126) U/L Total Protein 7.8 (6.3-8.2) g/dL Albumin 4.5 (3.5-5.0) g/dL Disposition Clinical Impression: Allergic reaction to drug Disposition: HOME SELF-CARE Condition: Good Instructions (If sedation given, give patient instructions): General Allergic Reaction (ED) Additional Instructions: Please discontinue Medrol dose pack, follow up with her primary care physician. Return with worsening or changing symptoms. Is patient prescribed a controlled substance at d/c from ED?: No Referrals: Dagoberto Andersen DO [Primary Care Provider] - 1-2 days Time of Disposition: 14:54
[2019-08-17 14:41] VITALS: BP 165/75; PULSE 59; TEMP 97.8
== END 2019-08-17 15:18 | disposition home or self-care (01) ==
LOC: EC 12:37
DX: R06.00 Dyspnea, unspecified (principal); T38.0X5A Adverse effect of glucocorticoids and synthetic analogues, initial encounter; I11.9 Hypertensive heart disease without heart failure; I25.10 Atherosclerotic heart disease of native coronary artery without angina pectoris; I25.2 Old myocardial infarction; Z86.14 Personal history of Methicillin resistant Staphylococcus aureus infection; Z95.5 Presence of coronary angioplasty implant and graft; Z87.09 Personal history of other diseases of the respiratory system; Z88.1 Allergy status to other antibiotic agents
CPT/HCPCS: 36415; 93005; 80053; 85025; 71046; 99285; 96374; 96375; 96361 ×2; J1200

== ENCOUNTER 2020-11-17 06:43 | Emergency (ER) | payer MEDICARE, BC ==
[2020-11-17 07:00] VITALS: RESP 18; TEMP 98.5
--- NOTE | 2020-11-17 07:26 | ED ---
General Adult HPI - General Chief complaint: Upper Respiratory Infection Stated complaint: Covid Positive Time Seen by Provider: 11/17/20 06:58 Source: patient Mode of arrival: ambulatory Limitations: no limitations - History of Present Illness Initial comments: 85-year-old female presenting to the emergency department today for chief complaint of covid 19 positive and wants BAM. [email or web address] states she has had bodyaches, nausea, and chills x 3 days testing positive for covid 19 yesterday and told to come today for "the covid treatment". She denies chest pain, dyspnea or additional complaints. She states she is feeling overall "good". Patient denies additional concerns, she appears well nontoxic. - Related Data Home Medications Medication Instructions Recorded Confirmed ALPRAZolam [Xanax] 0.125 - 0.25 mg PO DAILY PRN 09/18/17 11/17/20 Aspirin EC [Ecotrin Low Dose] 81 mg PO DAILY 09/12/19 11/17/20 Previous Rx's Medication Instructions Recorded Atorvastatin [Lipitor] 80 mg PO HS #30 tab 05/19/16 Metoprolol Tartrate [Lopressor] 25 mg PO BID #30 tab 05/19/16 Spironolactone [Aldactone] 25 mg PO DAILY #30 tab 05/19/16 lisinopriL [Zestril] 5 mg PO BID #60 tab 05/19/16 Allergies Allergy/AdvReac Type Severity Reaction Status Date / Time methylprednisolone Allergy Rash/Hives Verified 11/17/20 09:21 cephalexin [From Keflex] AdvReac Cramps Verified 11/17/20 09:21 Review of Systems ROS Statement: Those systems with pertinent positive or pertinent negative responses have been documented in the HPI. ROS Other: All systems not noted in ROS Statement are negative. Past Medical History Past Medical History: Asthma, Coronary Artery Disease (CAD), Heart Failure, CVA/TIA, Eye Disorder, GERD/Reflux, GI Bleed, Hyperlipidemia, Hypertension, Myocardial Infarction ([place]), Osteoarthritis (OA), Pneumonia, Skin Disorder Additional Past Medical History / Comment(s): 2016 possible TIA, murmur, bronchitis, neuropathy bilateral lower legs/feet, edema lower legs/feet, hematemesis/suspected upper GI bleed/anemia with blood transfusion, past gastric ulcer, UTIs, incomplete emptying of bladder, overactive bladder, diverticular disease, arthritis in spine and toes with pain, starting of bilateral cataracts. Last Myocardial Infarction Date:: 04/2016 History of Any Multi-Drug Resistant Organisms: None Reported Past Surgical History: Heart Catheterization With Stent, Hysterectomy Additional Past Surgical History / Comment(s): Multiple cardiac stents, D&C, colonoscopy Past Anesthesia/Blood Transfusion Reactions: No Reported Reaction Date of Last Stent Placement:: 06/08/16 Past Psychological History: Anxiety, Depression Smoking Status: Never smoker Past Alcohol Use History: None Reported Past Drug Use History: None Reported - Past Family History Son(s) Family Medical History: Cancer Father Family Medical History: Cancer Additional Family Medical History / Comment(s): Father of colon cancer when he was "elderly" Mother Family Medical History: CVA/TIA Additional Family Medical History / Comment(s): Mother at 89yrs a year after a massive CVA that left her paralyzed. General Exam - General Exam Comments Initial Comments: General: The patient is awake and alert, in no distress Eye: Pupils are equal, round and reactive to light, extra-ocular movements are intact. No nystagmus. There is normal conjunctiva bilaterally. No signs of icterus. Ears, nose, mouth and throat: There are moist mucous membranes and no oral lesions. Neck: The neck is supple, there is no tenderness or JVD. Cardiovascular: There is a regular rate and rhythm. No murmur, rub or gallop is appreciated. Respiratory: Lungs are clear to auscultation, respirations are non-labored, breath sounds are equal. No wheezes, stridor, rales, or rhonchi. No retractions no abdominal breathing Gastrointestinal: Soft, non-distended, non-tender abdomen without masses or organomegaly noted. There is no rebound or guarding present. Musculoskeletal: Normal ROM, no tenderness. Strength 5/5. Sensation intact. Pulses equal bilaterally 2+. Neurological: A&O x 3. CN II-XII intact grossly, There are no obvious motor or sensory deficits. Coordination appears grossly intact. Speech is normal. Skin: Skin is warm and dry and no rashes or lesions are noted. Psychiatric: Cooperative, appropriate mood & affect, normal judgment. Limitations: no limitations Course Vital Signs 11/17/20 06:53 Temperature 98.5 F Pulse Rate 68 Respiratory 18 Rate Blood Pressure 124/70 O2 Sat by Pulse 98 Oximetry Medical Decision Making - Medical Decision Making Extremely well-appearing 85-year-old female presenting today with her positive Covid results. patient has body aches, chills, nausea. no chest pain or dyspnea. lungs clear. states she only presented for BAM. Patient given monoclonal antibodies and discharged after monitoring/re-evaluation. Discussed case with attending Dr. Medrano Disposition Clinical Impression: COVID-19 Disposition: HOME SELF-CARE Condition: Good Instructions (If sedation given, give patient instructions): Coronavirus Disease 2019 (COVID-19) Additional Instructions: Please use medication as discussed. Please follow-up with family doctor in the next 2 days. Please return to emergency room if the symptoms increase or worsen or for any other concerns. Is patient prescribed a controlled substance at d/c from ED?: No Referrals: Dagoberto Andersen DO [Primary Care Provider] - 1-2 days Time of Disposition: 09:10
[2020-11-17] MEDS ORDERED: BAMLANIVIMAB (EUA) 700 MG in SODIUM CHLORIDE 0.9% 50 ML IVPB ONE (08:00)
[2020-11-17 10:09] VITALS: BP 131/62; PULSE 66
== END 2020-11-17 10:12 | disposition home or self-care (01) ==
LOC: EC 06:43
DX: U07.1 COVID-19 (principal); M19.079 Primary osteoarthritis, unspecified ankle and foot; M19.09 Primary osteoarthritis, other specified site; F32.9 Major depressive disorder, single episode, unspecified; F41.9 Anxiety disorder, unspecified; I25.2 Old myocardial infarction; Z79.82 Long term (current) use of aspirin; Z88.1 Allergy status to other antibiotic agents; Z88.8 Allergy status to other drugs, medicaments and biological substances; Z86.73 Personal history of transient ischemic attack (TIA), and cerebral infarction without residual deficits
CPT/HCPCS: 96365; 99283

== ENCOUNTER 2020-12-12 17:33 | Emergency (ER) | payer MEDICARE, BC ==
[2020-12-12 18:08] VITALS: RESP 18
--- NOTE | 2020-12-12 18:28 | ED ---
SOB HPI - General Chief Complaint: Shortness of Breath Stated Complaint: covid/body pain-revisit Time Seen by Provider: 12/12/20 17:55 Source: patient, RN notes reviewed, old records reviewed Mode of arrival: ambulatory Limitations: no limitations - History of Present Illness Initial Comments: This is a 85-year-old female history of multiple medical problems who was diagnosed with COVID-19 and given antibody therapy in November 17 who presents today with complaints of persistent intermittent fevers chills sweats cough of white thick phlegm. She's had some sharp left-sided chest pain posterior lateral inferior left chest wall some radiating around to the lateral aspect. She also has some peripheral edema. No anterior chest pain no upper chest pain no pain it was similar to any prior cardiac problems. He does state that she has stents. No other current complaints or modifying factors MD Complaint: shortness of breath, cough - Related Data Home Medications Medication Instructions Recorded Confirmed ALPRAZolam [Xanax] 0.125 - 0.25 mg PO DAILY PRN 09/18/17 11/17/20 Aspirin EC [Ecotrin Low Dose] 81 mg PO DAILY 09/12/19 11/17/20 Previous Rx's Medication Instructions Recorded Atorvastatin [Lipitor] 80 mg PO HS #30 tab 05/19/16 Metoprolol Tartrate [Lopressor] 25 mg PO BID #30 tab 05/19/16 Spironolactone [Aldactone] 25 mg PO DAILY #30 tab 05/19/16 lisinopriL [Zestril] 5 mg PO BID #60 tab 05/19/16 Allergies Allergy/AdvReac Type Severity Reaction Status Date / Time methylprednisolone Allergy Rash/Hives Verified 11/17/20 09:21 cephalexin [From Keflex] AdvReac Cramps Verified 11/17/20 09:21 Review of Systems ROS Statement: Those systems with pertinent positive or pertinent negative responses have been documented in the HPI. ROS Other: All systems not noted in ROS Statement are negative. Past Medical History Past Medical History: Asthma, Coronary Artery Disease (CAD), Heart Failure, CVA/TIA, Eye Disorder, GERD/Reflux, GI Bleed, Hyperlipidemia, Hypertension, Myocardial Infarction ([place]), Osteoarthritis (OA), Pneumonia, Skin Disorder Additional Past Medical History / Comment(s): 2016 possible TIA, murmur, bronchitis, neuropathy bilateral lower legs/feet, edema lower legs/feet, hematemesis/suspected upper GI bleed/anemia with blood transfusion, past gastric ulcer, UTIs, incomplete emptying of bladder, overactive bladder, diverticular disease, arthritis in spine and toes with pain, starting of bilateral cataracts. COVID 11/17 Last Myocardial Infarction Date:: 04/2016 History of Any Multi-Drug Resistant Organisms: None Reported Past Surgical History: Heart Catheterization With Stent, Hysterectomy Additional Past Surgical History / Comment(s): Multiple cardiac stents, D&C, colonoscopy Past Anesthesia/Blood Transfusion Reactions: No Reported Reaction Date of Last Stent Placement:: 06/08/16 Past Psychological History: Anxiety, Depression Smoking Status: Never smoker Past Alcohol Use History: None Reported Past Drug Use History: None Reported - Past Family History Son(s) Family Medical History: Cancer Father Family Medical History: Cancer Additional Family Medical History / Comment(s): Father of colon cancer when he was "elderly" Mother Family Medical History: CVA/TIA Additional Family Medical History / Comment(s): Mother at 89yrs a year after a massive CVA that left her paralyzed. General Exam - General Exam Comments Initial Comments: This is a well-developed well-nourished awake alert oriented 3 female Limitations: no limitations General appearance: alert, in no apparent distress Head exam: Present: atraumatic, normocephalic, normal inspection Eye exam: Present: normal appearance, PERRL, EOMI. Absent: scleral icterus, conjunctival injection, periorbital swelling ENT exam: Present: normal exam, mucous membranes moist Neck exam: Present: normal inspection, full ROM, other (No stridor JVD or bruits). Absent: tenderness, meningismus, lymphadenopathy Respiratory exam: Present: rales (Bilateral basilar crackles more so on the left and right), decreased breath sounds. Absent: respiratory distress, wheezes, rhonchi, stridor Cardiovascular Exam: Present: regular rate, normal rhythm, normal heart sounds. Absent: systolic murmur, diastolic murmur, rubs, gallop, clicks GI/Abdominal exam: Present: soft, normal bowel sounds. Absent: distended, tenderness, guarding, rebound, rigid Extremities exam: Present: full ROM, normal capillary refill, pedal edema. Absent: tenderness, joint swelling, calf tenderness Back exam: Present: normal inspection Neurological exam: Present: alert, oriented X3, CN II-XII intact Psychiatric exam: Present: normal affect, normal mood Skin exam: Present: warm, dry, intact, normal color. Absent: rash Course Vital Signs 12/12/20 12/12/20 12/12/20 17:48 18:07 18:51 Temperature 98.1 F Pulse Rate 80 61 Respiratory 22 18 18 Rate Blood Pressure 163/83 145/63 O2 Sat by Pulse 96 96 Oximetry Medical Decision Making - Medical Decision Making I did discuss the findings with the patient she will be discharged she does have an appointment to see Dr. Lucero in 2 days. She is keep that appointment she also does admit that she's been eating more salt recently and she believes that explains increased edema she's had to her lower extremities - Lab Data Result diagrams: 12/12/20 18:27 12/12/20 18:27 Lab Results 12/12/20 12/12/20 12/12/20 Range/Units 18:27 18:27 18:27 WBC 6.6 (3.8-10.6) k/uL RBC 4.94 (3.80-5.40) m/uL Hgb 13.1 (11.4-16.0) gm/dL Hct 39.2 (34.0-46.0) % MCV 79.4 L (80.0-100.0) fL MCH 26.6 (25.0-35.0) pg MCHC 33.5 (31.0-37.0) g/dL RDW 13.8 (11.5-15.5) % Plt Count 290 (150-450) k/uL MPV 7.7 Neutrophils % 68 % Lymphocytes % 22 % Monocytes % 7 % Eosinophils % 1 % Basophils % 0 % Neutrophils # 4.5 (1.3-7.7) k/uL Lymphocytes # 1.5 (1.0-4.8) k/uL Monocytes # 0.5 (0-1.0) k/uL Eosinophils # 0.1 (0-0.7) k/uL Basophils # 0.0 (0-0.2) k/uL PT 10.3 (9.0-12.0) sec INR 1.0 (<1.2) APTT 24.1 (22.0-30.0) sec D-Dimer 0.71 H (<0.60) mg/L FEU Sodium 132 L (137-145) mmol/L Potassium 5.2 H (3.5-5.1) mmol/L Chloride 98 (98-107) mmol/L Carbon Dioxide 25 (22-30) mmol/L Anion Gap 9 mmol/L BUN 13 (7-17) mg/dL Creatinine 0.75 (0.52-1.04) mg/dL Est GFR (CKD-EPI)AfAm 84 (>60 ml/min/1.73 sqM) Est GFR (CKD-EPI)NonAf 73 (>60 ml/min/1.73 sqM) Glucose 118 H (74-99) mg/dL Calcium 9.0 (8.4-10.2) mg/dL Magnesium 2.1 (1.6-2.3) mg/dL Total Bilirubin 0.8 (0.2-1.3) mg/dL AST 34 (14-36) U/L ALT 14 (4-34) U/L Alkaline Phosphatase 102 (38-126) U/L Creatine Kinase 44 (30-135) U/L Troponin I (0.000-0.034) ng/mL NT-Pro-B Natriuret Pep pg/mL Total Protein 7.9 (6.3-8.2) g/dL Albumin 4.2 (3.5-5.0) g/dL 12/12/20 12/12/20 Range/Units 18:27 18:27 WBC (3.8-10.6) k/uL RBC (3.80-5.40) m/uL Hgb (11.4-16.0) gm/dL Hct (34.0-46.0) % MCV (80.0-100.0) fL MCH (25.0-35.0) pg MCHC (31.0-37.0) g/dL RDW (11.5-15.5) % Plt Count (150-450) k/uL MPV Neutrophils % % Lymphocytes % % Monocytes % % Eosinophils % % Basophils % % Neutrophils # (1.3-7.7) k/uL Lymphocytes # (1.0-4.8) k/uL Monocytes # (0-1.0) k/uL Eosinophils # (0-0.7) k/uL Basophils # (0-0.2) k/uL PT (9.0-12.0) sec INR (<1.2) APTT (22.0-30.0) sec D-Dimer (<0.60) mg/L FEU Sodium (137-145) mmol/L Potassium (3.5-5.1) mmol/L Chloride (98-107) mmol/L Carbon Dioxide (22-30) mmol/L Anion Gap mmol/L BUN (7-17) mg/dL Creatinine (0.52-1.04) mg/dL Est GFR (CKD-EPI)AfAm (>60 ml/min/1.73 sqM) Est GFR (CKD-EPI)NonAf (>60 ml/min/1.73 sqM) Glucose (74-99) mg/dL Calcium (8.4-10.2) mg/dL Magnesium (1.6-2.3) mg/dL Total Bilirubin (0.2-1.3) mg/dL AST (14-36) U/L ALT (4-34) U/L Alkaline Phosphatase (38-126) U/L Creatine Kinase (30-135) U/L Troponin I <0.012 (0.000-0.034) ng/mL NT-Pro-B Natriuret Pep 323 pg/mL Total Protein (6.3-8.2) g/dL Albumin (3.5-5.0) g/dL - EKG Data -: EKG Interpreted by Me EKG shows normal: sinus rhythm EKG Comments: Sinus rhythm rate 63, TN interval 176, QRS duration 76 QT since QTC 406/[address] configuration - Radiology Data Radiology results: report reviewed (Imaging reviewed some blunting of the cosmetic angles small area of infiltrate likely residual from her previous illness.), image reviewed Disposition Clinical Impression: History of COVID-19, Dyspnea, Peripheral edema Disposition: HOME SELF-CARE Condition: Good Instructions (If sedation given, give patient instructions): Viral Pneumonia (ED) Additional Instructions: Avoid salt consumption Is patient prescribed a controlled substance at d/c from ED?: No Referrals: Cinda Lucero MD [Primary Care Provider] - 1-2 days
[2020-12-12 18:38] LABS: Basophils % (A) 0 %; Eosinophils # (A) 0.1 k/uL (0-0.7); Eosinophils % (A) 1 %; HCT 39.2 % (34.0-46.0); HGB 13.1 gm/dL (11.4-16.0); Lymphocytes # (A) 1.5 k/uL (1.0-4.8); Lymphocytes % (A) 22 %; MCH 26.6 pg (25.0-35.0); MCHC 33.5 g/dL (31.0-37.0); MCV 79.4 fL (80.0-100.0); Mean Platelet Volume 7.7; Monocytes # (A) 0.5 k/uL (0-1.0); Monocytes % (A) 7 %; Neutrophils # (A) 4.5 k/uL (1.3-7.7); Neutrophils % (A) 68 %; Platelet Count 290 k/uL (150-450); RBC 4.94 m/uL (3.80-5.40); RDW 13.8 % (11.5-15.5); WBC 6.6 k/uL (3.8-10.6)
[2020-12-12 18:49] LABS: Albumin 4.2 g/dL (3.5-5.0); Magnesium 2.1 mg/dL (1.6-2.3); Total Bilirubin 0.8 mg/dL (0.2-1.3); Total Protein 7.9 g/dL (6.3-8.2)
[2020-12-12 18:54] LABS: Partial Thromboplastin Time 24.1 sec (22.0-30.0); Prothrombin Time 10.3 sec (9.0-12.0)
[2020-12-12 18:57] LABS: Potassium 5.2 mmol/L (3.5-5.1)
--- NOTE | 2020-12-12 19:07 | XR ---
EXAMINATION TYPE: XR chest 2V DATE OF EXAM: 12/12/2020 COMPARISON: 09/12/2019 HISTORY: Difficulty breathing TECHNIQUE: FINDINGS: Heart is normal. There is some blunting of the costophrenic angles. There are no hilar mass es. There are chest leads. Bony thorax is intact. IMPRESSION: Small pleural effusions appear new compared to old exam. No heart failure.
[2020-12-12 19:15] LABS: D-Dimer 0.71 mg/L FEU (<0.60)
--- NOTE | 2020-12-12 19:52 | CT ---
EXAMINATION TYPE: CT angio chest DATE OF EXAM: 12/12/2020 COMPARISON: None HISTORY: Covid, shortness of breath, left sided rib pain. CT DLP: 186.8 mGycm Automated exposure control for dose reduction was used. CONTRAST: Performed with IV Contrast, patient injected with 100 mL of Isovue 370. Images obtained from the thoracic inlet to the diaphragm with IV contrast. There are 3-D post process ed images. There are mild bilateral pleural effusions. There is some atelectasis at the lung bases. There is so me prominence of the left atrium. Left ventricle is relatively small. There is no pericardial effusio n. There is no mediastinal adenopathy. There are no hilar masses. There is normal contrast opacificat ion of the pulmonary arteries. There are no filling defects. There are a few small bronchial lymph no eli on the right side measuring up to 1 cm. Bony thorax is intact. There is no compression fracture. Sternum is intact. IMPRESSION: No evidence of pulmonary embolism. Small pleural effusions with mild basilar pulmonary infiltrate and atelectasis. Large left atrium raises the possibility of some mitral stenosis or insufficiency.
[2020-12-12 20:47] VITALS: BP 166/66; PULSE 60; TEMP 98.7
== END 2020-12-12 20:48 | disposition home or self-care (01) ==
LOC: EC 17:33
DX: R06.00 Dyspnea, unspecified (principal); R60.9 Edema, unspecified; R50.9 Fever, unspecified; R05 Cough; R09.89 Other specified symptoms and signs involving the circulatory and respiratory systems; I25.10 Atherosclerotic heart disease of native coronary artery without angina pectoris; I11.0 Hypertensive heart disease with heart failure; I50.9 Heart failure, unspecified; E78.5 Hyperlipidemia, unspecified; K21.9 Gastro-esophageal reflux disease without esophagitis; M19.90 Unspecified osteoarthritis, unspecified site; J45.909 Unspecified asthma, uncomplicated; I25.2 Old myocardial infarction; Z95.5 Presence of coronary angioplasty implant and graft; F41.9 Anxiety disorder, unspecified; F32.9 Major depressive disorder, single episode, unspecified; Z79.82 Long term (current) use of aspirin; Z86.16 Personal history of COVID-19; Z86.73 Personal history of transient ischemic attack (TIA), and cerebral infarction without residual deficits
CPT/HCPCS: 36415; 93005; 85379; 83880; 80053; 82550; 83735; 84484; 85025; 85610; 85730; 87040; 71046; 71275; 99284; Q9967

== ENCOUNTER 2021-01-14 14:37 | Inpatient (IN) | payer MEDICARE, BC ==
--- NOTE | 2021-01-14 14:52 | ED ---
SOB HPI - General Chief Complaint: Shortness of Breath Stated Complaint: SOB,sent by pcp Source: patient Mode of arrival: wheelchair Limitations: no limitations - History of Present Illness Initial Comments: Renetta is a pleasant 85-year-old female with extensive past medical history most significant for known coronary artery disease, who presents to the emergency department today for evaluation of palpitations and shortness of breath. Patient reports that yesterday she began feeling her heart was racing and she can catch her breath. She contacted her cardiology office and noted that her heart rate was 123. They contacted her today and advised she come to the ER for evaluation. Patient denies any chest pain and reports is been compliant with her home medications. - Related Data Home Medications Medication Instructions Recorded Confirmed ALPRAZolam [Xanax] 0.125 - 0.25 mg PO DAILY PRN 09/18/17 11/17/20 Aspirin EC [Ecotrin Low Dose] 81 mg PO DAILY 09/12/19 11/17/20 Fluticasone Nasal [place] [Flonase 1 spr EA NOSTRIL DAILY 01/14/21 01/14/21 Nasal [place]] Loratadine [Claritin] 10 mg PO DAILY 01/14/21 01/14/21 Previous Rx's Medication Instructions Recorded Atorvastatin [Lipitor] 80 mg PO HS #30 tab 05/19/16 Metoprolol Tartrate [Lopressor] 25 mg PO BID #30 tab 05/19/16 Spironolactone [Aldactone] 25 mg PO DAILY #30 tab 05/19/16 lisinopriL [Zestril] 5 mg PO BID #60 tab 05/19/16 Allergies Allergy/AdvReac Type Severity Reaction Status Date / Time methylprednisolone Allergy Rash/Hives Verified 01/14/21 16:14 cephalexin [From Keflex] AdvReac Cramps Verified 01/14/21 16:14 Review of Systems ROS Statement: Those systems with pertinent positive or pertinent negative responses have been documented in the HPI. ROS Other: All systems not noted in ROS Statement are negative. Past Medical History Past Medical History: Asthma, Coronary Artery Disease (CAD), Heart Failure, CVA/TIA, Eye Disorder, GERD/Reflux, GI Bleed, Hyperlipidemia, Hypertension, Myocardial Infarction ([place]), Osteoarthritis (OA), Pneumonia, Skin Disorder Additional Past Medical History / Comment(s): 2016 possible TIA, murmur, bronchitis, neuropathy bilateral lower legs/feet, edema lower legs/feet, hematemesis/suspected upper GI bleed/anemia with blood transfusion, past gastric ulcer, UTIs, incomplete emptying of bladder, overactive bladder, diverticular disease, arthritis in spine and toes with pain, starting of bilateral cataracts. COVID 11/17 Last Myocardial Infarction Date:: 04/2016 History of Any Multi-Drug Resistant Organisms: None Reported Past Surgical History: Heart Catheterization With Stent, Hysterectomy Additional Past Surgical History / Comment(s): Multiple cardiac stents, D&C, colonoscopy Past Anesthesia/Blood Transfusion Reactions: No Reported Reaction Date of Last Stent Placement:: 06/08/16 Past Psychological History: Anxiety, Depression Smoking Status: Never smoker Past Alcohol Use History: None Reported Past Drug Use History: None Reported - Past Family History Son(s) Family Medical History: Cancer Father Family Medical History: Cancer Additional Family Medical History / Comment(s): Father of colon cancer when he was "elderly" Mother Family Medical History: CVA/TIA Additional Family Medical History / Comment(s): Mother at 89yrs a year after a massive CVA that left her paralyzed. General Exam - General Exam Comments Initial Comments: Physical Exam GENERAL: Patient is well-developed and well-nourished. Patient is nontoxic and well- hydrated and is in no distress. HENT: Normocephalic, Atraumatic. EYES: PERRL, EOMI PULMONARY: Unlabored respirations. No audible rales rhonchi or wheezing was noted. CARDIOVASCULAR: Irregularly irregular tachycardia ABDOMEN: Soft and nontender with normal bowel sounds. SKIN: Skin is clear with no lesions or rashes and otherwise unremarkable. : Deferred NEUROLOGIC: Patient is alert and oriented x3. Moving all extremities spontaneously MUSCULOSKELETAL: Normal extremities with adequate strength and full range of motion. No lower extremity swelling or edema. No calf tenderness. PSYCHIATRIC: Normal psychiatric evaluation. Limitations: no limitations Course Vital Signs 01/14/21 01/14/21 01/14/21 14:38 14:42 15:42 Temperature 97.7 F Pulse Rate 144 H 107 H Respiratory 18 18 18 Rate Blood Pressure 125/74 124/75 O2 Sat by Pulse 98 97 Oximetry Medical Decision Making - Medical Decision Making The patient was seen and evaluated history was obtained from the patient and review of medical record 85-year-old female shortness of breath found to be in new onset A. fib RVR Labs were obtained EKG confirms A. fib RVR Cardizem and heparin were ordered Patient care was discussed with her primary care physician Dr. Lucero who accepts the admission with consult to cardiology - Lab Data Result diagrams: 01/14/21 15:45 01/14/21 15:45 Lab Results 01/14/21 01/14/21 01/14/21 Range/Units 15:45 15:45 15:45 WBC 4.6 (3.8-10.6) k/uL RBC 5.09 (3.80-5.40) m/uL Hgb 13.7 (11.4-16.0) gm/dL Hct 41.2 (34.0-46.0) % MCV 81.1 (80.0-100.0) fL MCH 26.8 (25.0-35.0) pg MCHC 33.1 (31.0-37.0) g/dL RDW 14.6 (11.5-15.5) % Plt Count 277 (150-450) k/uL MPV 7.7 Neutrophils % 57 % Lymphocytes % 32 % Monocytes % 7 % Eosinophils % 1 % Basophils % 1 % Neutrophils # 2.6 (1.3-7.7) k/uL Lymphocytes # 1.5 (1.0-4.8) k/uL Monocytes # 0.3 (0-1.0) k/uL Eosinophils # 0.1 (0-0.7) k/uL Basophils # 0.0 (0-0.2) k/uL Sodium 136 L (137-145) mmol/L Potassium 4.5 (3.5-5.1) mmol/L Chloride 103 (98-107) mmol/L Carbon Dioxide 27 (22-30) mmol/L Anion Gap 6 mmol/L BUN 14 (7-17) mg/dL Creatinine 0.76 (0.52-1.04) mg/dL Est GFR (CKD-EPI)AfAm 83 (>60 ml/min/1.73 sqM) Est GFR (CKD-EPI)NonAf 72 (>60 ml/min/1.73 sqM) Glucose 142 H (74-99) mg/dL Plasma Lactic Acid Davis 1.2 (0.7-2.0) mmol/L Calcium 9.0 (8.4-10.2) mg/dL Magnesium 2.0 (1.6-2.3) mg/dL Total Bilirubin 0.3 (0.2-1.3) mg/dL AST 31 (14-36) U/L ALT 15 (4-34) U/L Alkaline Phosphatase 101 (38-126) U/L Total Protein 7.0 (6.3-8.2) g/dL Albumin 3.9 (3.5-5.0) g/dL - EKG Data -: EKG Interpreted by Nd EKG Comments: EKG was obtained due to tachycardia, EKG was obtained at 1452 rate is 129 rhythm is narrow complex irregularly irregular rhythm consistent with an atrial fibrillation with RVR there are no acute ST elevations or depressions no evidence of ischemia or infarction Disposition Clinical Impression: Atrial fibrillation with RVR, New onset a-fib Disposition: ADMITTED IP TO THIS HOSP Condition: Serious Is patient prescribed a controlled substance at d/c from ED?: No Referrals: Cinda Lucero MD [Primary Care Provider] - 1-2 days
[2021-01-14 15:54] LABS: Basophils % (A) 1 %; Eosinophils # (A) 0.1 k/uL (0-0.7); Eosinophils % (A) 1 %; HCT 41.2 % (34.0-46.0); HGB 13.7 gm/dL (11.4-16.0); Lymphocytes # (A) 1.5 k/uL (1.0-4.8); Lymphocytes % (A) 32 %; MCH 26.8 pg (25.0-35.0); MCHC 33.1 g/dL (31.0-37.0); MCV 81.1 fL (80.0-100.0); Mean Platelet Volume 7.7; Monocytes # (A) 0.3 k/uL (0-1.0); Monocytes % (A) 7 %; Neutrophils # (A) 2.6 k/uL (1.3-7.7); Neutrophils % (A) 57 %; Platelet Count 277 k/uL (150-450); RBC 5.09 m/uL (3.80-5.40); RDW 14.6 % (11.5-15.5); WBC 4.6 k/uL (3.8-10.6)
[2021-01-14] MEDS ORDERED: NALOXONE 0.4 MG/ML 1 ML VIAL IV PRN (15:59)
--- NOTE | 2021-01-14 16:03 | XR ---
EXAMINATION TYPE: XR chest 1V portable DATE OF EXAM: 01/14/2021 COMPARISON: Chest x-ray CTA chest December 12, 2020 HISTORY: Dyspnea. TECHNIQUE: Single AP portable frontal upright view of the chest is obtained. FINDINGS: There is no mild chronic changes without suspicious focal air space opacity or pneumothora x seen. New small to tiny bilateral pleural effusions. The cardiac silhouette size is mildly enlarge d with atherosclerotic aorta. The osseous structures are intact. IMPRESSION: Mild cardiomegaly with new small to tiny bilateral pleural effusions. Correlate for CHF exacerbation.
[2021-01-14 16:06] LABS: Albumin 3.9 g/dL (3.5-5.0); Potassium 4.5 mmol/L (3.5-5.1); Total Bilirubin 0.3 mg/dL (0.2-1.3)
[2021-01-14] MEDS ORDERED: DILTIAZEM DRIP BOLUS FROM BAG 1 MG SOLN IV ONE (16:09)
[2021-01-14] MEDS ORDERED: DILTIAZEM 125 MG in SODIUM CHLORIDE 0.9% 100 ML IV SCH (16:15)
[2021-01-14] MEDS ORDERED: HEPARIN SODIUM 1,000 UN/ML (10ML VL) IV PRN (16:17)
[2021-01-14] MEDS ORDERED: HEPARIN SODIUM 1,000 UN/ML (10ML VL) IV ONE (16:17)
[2021-01-14 16:19] LABS: Partial Thromboplastin Time 22.9 sec (22.0-30.0); Prothrombin Time 10.4 sec (9.0-12.0)
[2021-01-14] MEDS ORDERED: HEPARIN SOD,PORK IN 0.45% NACL 25,000 UNIT in 0.45% NACL 1 250ML.BAG IV SCH (16:30)
[2021-01-14] MEDS ORDERED: ALPRAZolam 0.25 MG TAB PO PRN (18:34)
[2021-01-14 19:09] LABS: Magnesium 2.1 mg/dL (1.6-2.3)
[2021-01-14] MEDS ORDERED: METOPROLOL TARTRATE 25 MG TAB PO SCH (21:00)
[2021-01-14] MEDS ORDERED: FUROSEMIDE 10 MG/ML 2 ML VIAL IV SCH (21:00)
[2021-01-14] MEDS: lisinopriL 5 MG TAB PO SCH (21:22)
[2021-01-14] MEDS: ATORVASTATIN 80 MG TAB PO SCH (21:23)
[2021-01-15] MEDS: PANTOPRAZOLE 40 MG TABLET PO SCH (06:24)
[2021-01-15 07:28] LABS: Partial Thromboplastin Time 64.2 sec (22.0-30.0); Prothrombin Time 10.8 sec (9.0-12.0)
[2021-01-15 07:30] LABS: Basophils % (A) 1 %; Eosinophils # (A) 0.1 k/uL (0-0.7); Eosinophils % (A) 1 %; HCT 41.2 % (34.0-46.0); HGB 13.1 gm/dL (11.4-16.0); Lymphocytes # (A) 1.5 k/uL (1.0-4.8); Lymphocytes % (A) 41 %; MCH 26.1 pg (25.0-35.0); MCHC 31.7 g/dL (31.0-37.0); MCV 82.4 fL (80.0-100.0); Mean Platelet Volume 7.3; Monocytes # (A) 0.3 k/uL (0-1.0); Monocytes % (A) 8 %; Neutrophils # (A) 1.7 k/uL (1.3-7.7); Neutrophils % (A) 47 %; Platelet Count 270 k/uL (150-450); RDW 14.9 % (11.5-15.5); WBC 3.6 k/uL (3.8-10.6)
--- NOTE | 2021-01-15 07:37 | P.HPIM ---
History of Present Illness H&P Date: 01/14/21 Chief Complaint: Atrial fibrillation with RVR HISTORY OF PRESENT ILLNESS: This is an 85-year-old female one of my patient with a previous medical history significant for hypertension and hypertensive cardiovascular disease, hyperlipidemia, history of coronary artery disease status post PCI and stent placement, chronic diastolic heart failure, GERD, patient presented to the emergency department at [facility] with increased shortness breath, she was found to have atrial fibrillation with rapid ventricular response, she was started on heparin drip as well as Cardizem drip, her chest x-ray showed cardiomegaly with small bilateral pleural refusion and possible congestive heart failure, 12-lead EKG showed atrial fibrillation with RVR, her laboratory values were negative except for mild hyponatremia 136, her rapid Covid testing is positive, she will be placed in quarantined even though the patient is not symptomatically this point. Patient had Covid back in October 2020. REVIEW OF SYSTEMS: Constitutional: No documented fever, no chills, no night sweats. No weight change. No weakness, fatigue or lethargy. No daytime sleepiness. EENT: No headache. No blurred vision or double vision, no loss of vision. No loss of Hearing, no ringing in the ears, no dizziness. No nasal drainage or congestion. No epistaxis. No sore throat. Lungs: positive for shortness of breath, no cough, no sputum production. No wheezing. Reports dyspnea with activity. Cardiovascular: No chest pain, no lower extremity edema. No palpitations. Positive for paroxysmal nocturnal dyspnea. positive for orthopnea. No lightheadedness or dizziness. No syncopal episodes. Abdominal: Reports no abdominal pain. No nausea, vomiting. No diarrhea. No constipation. No bloody or tarry stools reports loss of appetite. Genitourinary: No dysuria, increased frequency, urgency. No urinary retention. Musculoskeletal: No myalgias. No muscle weakness, no gait dysfunction, no frequent falls. No back pain. No neck pain. Integumentary: No wounds, no lesions. No rash or pruritus. No unusual bruising. No change in hair or nails. Neurologic: No aphasia. No facial droop. No change in mentation. No head injury. No headache. No paralysis. No paresthesia. Psychiatric: No depression. No anxiety. No mood swings. Endocrine: No abnormal blood sugars. No weight change. PAST MEDICAL HISTORY: Hypertension and hypertensive cardiovascular disease. Hyperlipidemia. CAD post-PCI. GERD TIA/CVA. Chronic diastolic heart failure. Osteoarthritis. Peripheral neuropathy. Anxiety. Depression. Spondylosis of the lumbar spine . Detrusor instability. ALLERGIC rhinitis. PAST SURGICAL HISTORY: left heart catheterization with PCI 10 stents 2019 last one Partial hysterectomy Colonoscopy SOCIAL HISTORY: this is a lifelong nonsmoker, she denies any alcohol ingestion, no drug use or abuse. FAMILY HISTORY: father at age of 85 from colon cancer, mother at age of 91 from massive CVA that left her paralyzed, patient had 4 brothers one accidental ly the other one from [place] the other 2 brothers are alive one of them with Alzheimer dementia the other one had CAD post-CABG and aVR patient had 5 sisters one of her sisters at the age of 58 from lung cancer and [place], the rest of the sisters are okay, patient had 5 sons one of them from lung cancer the others are okay patient has 3 daughters one of them with CAD post-PCI in the other 2 are normal PHYSICAL EXAMINATION: General: 85-year-old female laying down in bed in minimal respiratory distress per HEENT: Head is atraumatic, normocephalic, pupils were equal round reactive to light and recommendation, extraocular muscle movement were intact, sclera nonicteric, conjunctivae were pale, mucous membranes of the mouth are somewhat dry. Neck: Supple, no JVP, normal carotid upstroke bilaterally, no lymphadenopathy. Chest: Decreased breath sounds at the bases, few rhonchi, wheeze minimal expiratory s, no chest wall tenderness, no intercostal retractions. Heart: First heart sound is normal, second heart sounds normal, irregularly irregular there is systolic ejection murmur 2/6 located in the left sternal border. Abdomen: Soft, nontender, nondistended, positive bowel sounds. Extremities: There is no edema no calf tenderness DP +2 bilaterally. Neurologic examination: Patient is awake alert and oriented X3 , cranial nerves II-12 appear grossly intact, muscle power were 5 out of 5 in upper extremities and 5 out of 5 in bilateral lower extremities, deep tendon reflexes normal bilaterally. ASSESSMENT AND PLAN: 1. Atrial fibrillation with rapid ventricular response. Continue patient on Cardizem drip, continue heparin drip, restart metoprolol 25 mg orally twice every day, echocardiogram for evaluation of LV function, cardiology consultation, patient may be transitioned to oral Eliquis 5 mg orally twice every day in the next 24 hours. 2. History of CAD post-PCI. Continue patient on aspirin 81 mg once every day, atorvastatin 80 mg once every day, metoprolol 25 mg orally twice every day. 3. Hypertension and hypertensive cardiovascular disease. Continue metoprolol 25 mg orally twice every day, continue lisinopril 5 mg orally twice every day, m onitor the patient blood pressure very closely. 4. Hyperlipidemia. Continue patient on atorvastatin 80 mg orally once every day. 5. Anxiety. Continue Xanax 0.25 mg orally 3 times every day as needed. 6. ALLERGIC rhinitis. Continue Claritin 10 mg orally once every day as well as Flonase nasal spray 1 puff in each nostril twice every day. 7. History of TIA/CVA. Likely related to paroxysmal atrial fibrillation patient will be maintained on aspirin 81 mg once every day, heparin drip for now, she will be transitioned to Eliquis 5 mg orally twice every day for life along with atorvastatin 80 mg orally once every day. 8. Detrusor instability. Stable. 9. GERD with history of GI bleed. Start the patient on Protonix 40 mg orally once every day. 10. Acute on chronic diastolic heart failure. Start the patient on Lasix 20 mg IV push every 12 hours, continue Spironolactone 25 mg orally once every day, continue metoprolol 25 mg orally twice every day, . continue lisinopril 5 mg orally twice every day,Echocardiogram for evaluation of LV function 11. DVT prophylaxis. Currently on heparin drip we'll transition to Eliquis 5 mg orally twice every day . 12. Positive rapid Covid 19 test likely false-positive the patient is asymptomatic 13. Admit to inpatient. Estimate a length of stay 2 midnights. 14. Patient is full code. Past Medical History Past Medical History: Asthma, Coronary Artery Disease (CAD), Heart Failure, CVA/TIA, Eye Disorder, GERD/Reflux, GI Bleed, Hyperlipidemia, Hypertension, Myocardial Infarction ([place]), Osteoarthritis (OA), Pneumonia, Skin Disorder Additional Past Medical History / Comment(s): 2016 possible TIA, murmur, bronchitis, neuropathy bilateral lower legs/feet, edema lower legs/feet, hematemesis/suspected upper GI bleed/anemia with blood transfusion, past gastric ulcer, UTIs, incomplete emptying of bladder, overactive bladder, diverticular disease, arthritis in spine and toes with pain, starting of bilateral cataracts. COVID 11/17 Last Myocardial Infarction Date:: 04/2016 History of Any Multi-Drug Resistant Organisms: None Reported Past Surgical History: Heart Catheterization With Stent, Hysterectomy Additional Past Surgical History / Comment(s): Multiple cardiac stents, D&C, colonoscopy Past Anesthesia/Blood Transfusion Reactions: No Reported Reaction Date of Last Stent Placement:: 06/08/16 Past Psychological History: Anxiety, Depression Smoking Status: Never smoker Past Alcohol Use History: None Reported Past Drug Use History: None Reported - Past Family History Son(s) Family Medical History: Cancer Father Family Medical History: Cancer Additional Family Medical History / Comment(s): Father of colon cancer when he was "elderly" Mother Family Medical History: CVA/TIA Additional Family Medical History / Comment(s): Mother at 89yrs a year after a massive CVA that left her paralyzed. Medications and Allergies Home Medications Medication Instructions Recorded Confirmed Type Atorvastatin [Lipitor] 80 mg PO HS #30 tab 05/19/16 01/14/21 Rx Metoprolol Tartrate [Lopressor] 25 mg PO BID #30 tab 05/19/16 01/14/21 Rx Spironolactone [Aldactone] 25 mg PO DAILY #30 tab 05/19/16 01/14/21 Rx lisinopriL [Zestril] 5 mg PO BID #60 tab 05/19/16 01/14/21 Rx ALPRAZolam [Xanax] 0.125 - 0.25 mg PO TID PRN 09/18/17 01/14/21 History Aspirin EC [Ecotrin Low Dose] 81 mg PO DAILY 09/12/19 01/14/21 History Fluticasone Nasal [place] [Flonase 1 spr EA NOSTRIL DAILY 01/14/21 01/14/21 History Nasal [place]] Loratadine [Claritin] 10 mg PO DAILY 01/14/21 01/14/21 History Allergies Allergy/AdvReac Type Severity Reaction Status Date / Time methylprednisolone Allergy Rash/Hives Verified 01/14/21 16:14 cephalexin [From Keflex] AdvReac Cramps Verified 01/14/21 16:14 Physical Exam Vitals: Vital Signs Temp Pulse Resp BP Pulse Ox 01/14/21 16:00 125 H 18 109/64 97 01/14/21 15:42 107 H 18 124/75 97 01/14/21 14:42 18 01/14/21 14:38 97.7 F 144 H 18 125/74 98 Intake and Output 01/14/21 01/14/21 01/14/21 06:59 14:59 22:59 Other: Weight 58.967 kg Results CBC & Chem 7: 01/15/21 07:01 01/14/21 15:45 Labs: Abnormal Lab Results - Last 24 Hours (Table) 01/14/21 01/14/21 Range/Units 15:45 17:21 Sodium 136 L (137-145) mmol/L Glucose 142 H (74-99) mg/dL Coronavirus (PCR) Detected A (Not Detectd)
[2021-01-15 07:39] LABS: Albumin 3.3 g/dL (3.5-5.0); Calcium 8.6 mg/dL (8.4-10.2); Potassium 4.2 mmol/L (3.5-5.1); Total Bilirubin 0.4 mg/dL (0.2-1.3); Total Protein 6.3 g/dL (6.3-8.2)
--- NOTE | 2021-01-15 08:04 | P.PN ---
Subjective Progress Note Date: 01/15/21 HISTORY OF PRESENT ILLNESS: This is an 85-year-old female one of my patient with a previous [facility] history significant for hypertension and hypertensive cardiovascular disease, hyperlipidemia, history of coronary artery disease status post PCI and stent placement, chronic diastolic heart failure, GERD, patient presented to the emergency department at [facility] with increased shortness breath, she was found to have atrial fibrillation with rapid ventricular response, she was started on heparin drip as well as Cardizem drip, her chest x-ray showed cardiomegaly with small bilateral pleural refusion and possible congestive heart failure, 12-lead EKG showed atrial fibrillation with RVR, her laboratory values were negative except for mild hyponatremia 136, her rapid Covid testing is positive, she will be placed in quarantined even though the patient is not symptomatically this point. Patient had Covid back in October 2020. 01/15: Patient sitting up in bed eating her breakfast, she denies any chest pain or any shortness breath she continues to be atrial for ablation with a heart rate between 92 and 122, we'll increase her metoprolol to 50 minute gram orally twice every day discontinue Cardizem drip, discontinue heparin drip, start the patient on Eliquis 5 mg orally twice every day, we'll check echocardiogram for evaluation of LV function, we'll check also venous Doppler both lower extremities as the patient complaining of increased pain in both legs, switch the patient to oral Lasix 20 mg orally once every day as well as spironolactone 25 mg orally once every day, await cardiology evaluation. REVIEW OF SYSTEMS: Constitutional: No documented fever, no chills, no night sweats. No weight change. No weakness, fatigue or lethargy. No daytime sleepiness. HEENT: No headache. No blurred vision or double vision, no loss of vision. No loss of Hearing, no ringing in the ears, no dizziness. No nasal drainage or congestion. No epistaxis. No sore throat. Lungs: positive for shortness of breath, no cough, no sputum production. No wheezing. Reports dyspnea with activity. Cardiovascular: No chest pain, no lower extremity edema. No palpitations. Positive for paroxysmal nocturnal dyspnea. positive for orthopnea. No lightheadedness or dizziness. No syncopal episodes. Abdominal: Reports no abdominal pain. No nausea, vomiting. No diarrhea. No constipation. No bloody or tarry stools reports loss of appetite. Genitourinary: No dysuria, increased frequency, urgency. No urinary retention. Musculoskeletal: No myalgias. No muscle weakness, no gait dysfunction, no frequent falls. No back pain. No neck pain. Integumentary: No wounds, no lesions. No rash or pruritus. No unusual bruising. No change in hair or nails. Neurologic: No aphasia. No facial droop. No change in mentation. No head injury. No headache. No paralysis. No paresthesia. Psychiatric: No depression. No anxiety. No mood swings. Endocrine: No abnormal blood sugars. No weight change. PHYSICAL EXAMINATION: General: 85-year-old female laying down in bed in minimal respiratory distress per HEENT: Head is atraumatic, normocephalic, pupils were equal round reactive to light and recommendation, extraocular muscle movement were intact, sclera nonicteric, conjunctivae were pale, mucous membranes of the mouth are somewhat dry. Neck: Supple, no JVP, normal carotid upstroke bilaterally, no lymphadenopathy. Chest: Decreased breath sounds at the bases, few rhonchi, wheeze minimal expiratory s, no chest wall tenderness, no intercostal retractions. Heart: First heart sound is normal, second heart sounds normal, irregularly irregular there is systolic ejection murmur 2/6 located in the left sternal border. Abdomen: Soft, nontender, nondistended, positive bowel sounds. Extremities: There is no edema no calf tenderness DP +2 bilaterally. Neurologic examination: Patient is awake alert and oriented X3 , cranial nerves II-12 appear grossly intact, muscle power were 5 out of 5 in upper extremities and 5 out of 5 in bilateral lower extremities, deep tendon reflexes normal bilaterally. ASSESSMENT AND PLAN: 1. Atrial fibrillation with rapid ventricular response. Discontinue Cardizem drip, increased metoprolol 50 mg orally twice every day, discontinue heparin drip, start the patient on Eliquis 5 mg orally once twice every day. 2. History of CAD post-PCI. Continue patient on aspirin 81 mg once every day, atorvastatin 80 mg once every day, metoprolol 50 mg orally twice every day. 3. Hypertension and hypertensive cardiovascular disease. Continue metoprolol 50 mg orally twice every day, continue lisinopril 5 mg orally twice every day, monitor the patient blood pressure very closely. 4. Hyperlipidemia. Continue patient on atorvastatin 80 mg orally once every day. 5. Anxiety. Continue Xanax 0.25 mg orally 3 times every day as needed. 6. ALLERGIC rhinitis. Continue Claritin 10 mg orally once every day as well as Flonase nasal spray 1 puff in each nostril twice every day. 7. History of TIA/CVA. Likely related to paroxysmal atrial fibrillation patient will be maintained on aspirin 81 mg once every day, heparin drip for n ow, she will be transitioned to Eliquis 5 mg orally twice every day for life along with atorvastatin 80 mg orally once every day. 8. Detrusor instability. Stable. 9. GERD with history of GI bleed. Start the patient on Protonix 40 mg orally once every day. 10. Acute on chronic diastolic heart failure. Switch the patient to Lasix 20 mg orally once every day, continue spironolactone 25 mg orally once every day, continue lisinopril 5 mg twice every day, continue metoprolol 50 mg twice every day. Weight echocardiogram for evaluation of LV function. 11. DVT prophylaxis. Eliquis 5 mg orally twice every day . 12. Positive rapid Covid 19 test likely false-positive the patient is as ymptomatic 13. Home in Am. Objective - Vital Signs Vital signs: Vital Signs Temp 97.2 F L 01/15/21 04:00 Pulse 85 01/15/21 04:00 Resp 16 01/15/21 04:00 BP 102/67 01/15/21 04:00 Pulse Ox 98 01/15/21 04:00 Intake & Output 01/14/21 01/15/21 01/15/21 18:59 06:59 18:59 Intake Total 18.25 Balance 18.25 Weight 58.967 kg 56.2 kg Intake: Intake, IV Titration 18.25 Amount Diltiazem 125 mg In 11.25 Sodium Chloride 0.9% 100 ml @ Per Protocol IV .Q0M [facility]KY Rx#:[id number] Heparin Sod,Pork in 0.45% 7 NaCl 25,000 unit In 0.45 % NaCl 1 250ml.bag @ 12 UNITS/KG/HR 7.076 mls/hr IV .Q24H [facility] Rx#: [id number] Other: Voiding Method Toilet - Labs CBC & Chem 7: 01/15/21 07:01 01/15/21 07:01 Labs: Abnormal Lab Results - Last 24 Hours (Table) 01/14/21 01/14/21 01/15/21 Range/Units 15:45 17:21 00:14 WBC (3.8-10.6) k/uL APTT 44.4 H (22.0-30.0) sec Sodium 136 L (137-145) mmol/L Glucose 142 H (74-99) mg/dL Coronavirus (PCR) Detected A (Not Detectd) 01/15/21 01/15/21 Range/Units 07:01 07:01 WBC 3.6 L (3.8-10.6) k/uL APTT 64.2 H (22.0-30.0) sec Sodium (137-145) mmol/L Glucose (74-99) mg/dL Coronavirus (PCR) (Not Detectd)
[2021-01-15] MEDS: lisinopriL 5 MG TAB PO SCH ×2 (08:47→20:16)
[2021-01-15] MEDS: SPIRONOLACTONE 25 MG TAB PO SCH (08:47)
[2021-01-15] MEDS: APIXABAN 5 MG TAB PO SCH ×2 (08:47→20:16)
[2021-01-15] MEDS: ASPIRIN 81 MG PO SCH (08:47)
[2021-01-15] MEDS: FLUTICASONE 50MCG/SPRAY NASAL 16GM EA NOSTRIL SCH (08:47)
[2021-01-15] MEDS: FUROSEMIDE 20 MG TAB PO SCH (08:47)
[2021-01-15] MEDS: METOPROLOL TARTRATE 50 MG TAB PO SCH ×2 (08:47→20:16)
[2021-01-15] MEDS: LORATADINE 10 MG TAB PO SCH (08:47)
--- NOTE | 2021-01-15 09:52 | US ---
EXAMINATION TYPE: US venous doppler duplex LE DATE OF EXAM: 01/15/2021 8:44 AM COMPARISON: 12/19/2014 CLINICAL HISTORY: R/O clot. Calf cramps, left leg swelling, no h/o clots SIDE PERFORMED: Bilateral TECHNIQUE: The lower extremity deep venous system is examined utilizing real time linear array sonog hesham with graded compression, doppler sonography and color-flow sonography. VESSELS IMAGED: Common Femoral Vein Deep Femoral Vein Greater Saphenous Vein * Femoral Vein Popliteal Vein Small Saphenous Vein * Proximal Calf Veins (* superficial vessels) Right Leg: Negative for DVT Left Leg: Negative for DVT IMPRESSION: 1. No evidence of deep venous thrombosis of the bilateral lower extremity veins.
[2021-01-15 11:57] VITALS: BMI 25.0
--- NOTE | 2021-01-15 12:51 | P.CRDCN ---
History of Present Illness History of present illness: HISTORY OF PRESENTING ILLNESS This is a pleasant 85-year-old female past medical history significant for coronary artery disease status post multivessel PCI, hypertension and dysli pidemia. She follows in the office with Dr. Phillips. We have been asked to see in consultation for atrial fibrillation. She presented to the hospital with a three-day history of palpitations, generalized weakness, shortness of breath, dizziness and fatigue. On arrival EKG revealed atrial fibrillation with rapid ventricular response heart rate of 129. She was initiated on IV heparin and Cardizem infusions. She continues to be in atrial fibrillation with more controlled ventricular rate at this time and her symptoms have subsided. Chest x-ray reveals mild cardiomegaly with small to tiny bilateral pleural effusions. Laboratory data reviewed, CBC unremarkable, sodium 139, potassium 4.2, cre atinine 0.74, magnesium 2.0, cardiac enzymes negative 1, NT proBNP 3300, TSH 2.41 and Covid positive. The patient states she was positive for Covid in October. She has been asymptomatic since that time. Most recent cardiac catheterization in 2015 revealed in-stent restenosis of the mid RCA, PCI was performed at that time. She also has subtotal occlusion of the LAD in the midportion and a stent in the ostial portion, stent in the circumflex at that time was patent. Most recent echocardiogram obtained in the office 2018 revealed preserved LV systolic function with ejection fraction 55%, moderate concentric LVH, moderately dilated left atrium, mild MR, mild TR and mild pulmonary regurgitation. Most recent stress test performed in August 2019 was a dobutamine stress test that was normal. REVIEW OF SYSTEMS At the time of my exam: CONSTITUTIONAL: Denies fever or chills. CARDIOVASCULAR: Denies chest pain, shortness of breath, orthopnea, PND or palpitations. RESPIRATORY: Denies cough. GASTROINTESTINAL: Denies abdominal pain, diarrhea, constipation, nausea or vomiting. MUSCULOSKELETAL: Denies myalgias. NEUROLOGIC: Denies numbness, tingling, headacbe or weakness. ENDOCRINE: Denies fatigue, weight change, polydipsia or polyurina. GENITOURINARY: Denies burning, hematuria or urgency with micturation. HEMATOLOGIC: Denies history of anemia or bleeding. PHYSICAL EXAMINATION Blood pressure 102/67 heart rate 85 afebrile and maintaining oxygen saturation on room air. CONSTITUTIONAL: No apparent distress. HEENT: Head is normocephalic. Pupils are equal, round. Sclerae anicteric. Mucous membranes of the mouth are moist. No JVD. No carotid bruit. CHEST EXAMINATION: Lungs are clear to auscultation. No chest wall tenderness is noted on palpation or with deep breathing. HEART EXAMINATION: Irregular rate and rhythm. S1, S2 heard. Systolic ejection murmur at the left sternal border, no gallops or rub. ABDOMEN: Soft, nontender. Positive bowel sounds. EXTREMITIES: 2+ peripheral pulses, no lower extremity edema and no calf tenderness. NEUROLOGIC EXAMINATION: Patient is awake, alert and oriented x3. ASSESSMENT New onset paroxysmal atrial fibrillation with rapid ventricular response Coronary artery disease status post multivessel PCI Hypertension Dyslipidemia PLAN PCP has transitioned to Eliquis 5 mg twice a day. Discontinue Cardizem infusion and continue metoprolol as ordered. Echocardiogram has been obtained and will be reviewed. Patient can be discharged home from a cardiac perspective, follow-up in the office with Dr. Ramos next week. Thank you kindly for this consultation. Nurse Practitioner note has been reviewed, I agree with a documented findings and plan of care. Patient was seen and examined. Past Medical History Past Medical History: Asthma, Coronary Artery Disease (CAD), Heart Failure, CVA/TIA, Eye Disorder, GERD/Reflux, GI Bleed, Hyperlipidemia, Hypertension, Myocardial Infarction ([place]), Osteoarthritis (OA), Pneumonia, Skin Disorder Additional Past Medical History / Comment(s): 2015 possible TIA, murmur, bronchitis, neuropathy bilateral lower legs/feet, edema lower legs/feet, hematemesis/suspected upper GI bleed/anemia with blood transfusion, past gastric ulcer, UTIs, incomplete emptying of bladder, overactive bladder, diverticular disease, arthritis in spine and toes with pain, starting of bilateral cataracts. COVID 11/17 Last Myocardial Infarction Date:: 04/2016 History of Any Multi-Drug Resistant Organisms: None Reported Past Surgical History: Heart Catheterization With Stent, Hysterectomy Additional Past Surgical History / Comment(s): Multiple cardiac stents, D&C, colonoscopy Past Anesthesia/Blood Transfusion Reactions: No Reported Reaction Date of Last Stent Placement:: 06/08/16 Past Psychological History: Anxiety, Depression Smoking Status: Never smoker Past Alcohol Use History: None Reported Past Drug Use History: None Reported - Past Family History Son(s) Family Medical History: Cancer Father Family Medical History: Cancer Additional Family Medical History / Comment(s): Father of colon cancer when he was "elderly" Mother Family Medical History: CVA/TIA Additional Family Medical History / Comment(s): Mother at 89yrs a year after a massive CVA that left her paralyzed. Medications and Allergies Home Medications Medication Instructions Recorded Confirmed Type Atorvastatin [Lipitor] 80 mg PO HS #30 tab 05/19/16 01/14/21 Rx Metoprolol Tartrate [Lopressor] 25 mg PO BID #30 tab 05/19/16 01/14/21 Rx Spironolactone [Aldactone] 25 mg PO DAILY #30 tab 05/19/16 01/14/21 Rx lisinopriL [Zestril] 5 mg PO BID #60 tab 05/19/16 01/14/21 Rx ALPRAZolam [Xanax] 0.125 - 0.25 mg PO TID PRN 09/18/17 01/14/21 History Aspirin EC [Ecotrin Low Dose] 81 mg PO DAILY 09/12/19 01/14/21 History Fluticasone Nasal Robinson [Flonase 1 spr EA NOSTRIL DAILY 01/14/21 01/14/21 History Nasal Robinson] Loratadine [Claritin] 10 mg PO DAILY 01/14/21 01/14/21 History Allergies Allergy/AdvReac Type Severity Reaction Status Date / Time methylprednisolone Allergy Rash/Hives Verified 01/14/21 16:14 cephalexin [From Keflex] AdvReac Cramps Verified 01/14/21 16:14 Physical Exam Vitals: Vital Signs Temp Pulse Pulse Resp BP BP Pulse Ox 01/15/21 04:00 97.2 F L 85 16 102/67 98 01/15/21 02:00 90 16 01/15/21 00:01 86 16 92/51 98 01/15/21 00:00 97.9 F 90 16 131/86 97 01/14/21 21:27 87 18 122/78 97 01/14/21 19:04 80 18 117/63 99 01/14/21 18:00 72 18 123/91 99 01/14/21 17:00 92 18 109/64 97 01/14/21 16:00 125 H 18 109/64 97 01/14/21 15:42 107 H 18 124/75 97 01/14/21 14:42 18 01/14/21 14:38 97.7 F 144 H 18 125/74 98 Intake and Output 01/14/21 01/15/21 01/15/21 22:59 06:59 14:59 Intake Total 11.25 7 Balance 11.25 7 Intake: Intake, IV Titration 11.25 7 Amount Diltiazem 125 mg In 11.25 Sodium Chloride 0.9% 100 ml @ Per Protocol IV .Q0M [facility]KY Rx#:[id number] Heparin Sod,Pork in 0.45% 7 NaCl 25,000 unit In 0.45 % NaCl 1 250ml.bag @ 12 UNITS/KG/HR 7.076 mls/hr IV .Q24H [facility] Rx#: [id number] Other: Voiding Method Toilet Weight 56.2 kg Results 01/15/21 07:01 01/15/21 07:01 Cardiac Enzymes 01/14/21 01/14/21 01/15/21 Range/Units 15:45 15:45 07:01 AST 31 25 (14-36) U/L Troponin I <0.012 (0.000-0.034) ng/mL Coagulation 01/14/21 01/15/21 01/15/21 Range/Units 15:45 00:14 07:01 PT 10.4 10.8 (9.0-12.0) sec APTT 22.9 44.4 H 64.2 H (22.0-30.0) sec CBC 01/14/21 01/15/21 Range/Units 15:45 07:01 WBC 4.6 3.6 L (3.8-10.6) k/uL RBC 5.09 5.00 (3.80-5.40) m/uL Hgb 13.7 13.1 (11.4-16.0) gm/dL Hct 41.2 41.2 (34.0-46.0) % Plt Count 277 270 (150-450) k/uL Comprehensive Metabolic Panel 01/14/21 01/15/21 Range/Units 15:45 07:01 Sodium 136 L 139 (137-145) mmol/L Potassium 4.5 4.2 (3.5-5.1) mmol/L Chloride 103 107 (98-107) mmol/L Carbon Dioxide 27 28 (22-30) mmol/L BUN 14 11 (7-17) mg/dL Creatinine 0.76 0.74 (0.52-1.04) mg/dL Glucose 142 H 106 H (74-99) mg/dL Calcium 9.0 8.6 (8.4-10.2) mg/dL AST 31 25 (14-36) U/L ALT 15 13 (4-34) U/L Alkaline Phosphatase 101 71 (38-126) U/L Total Protein 7.0 6.3 (6.3-8.2) g/dL Albumin 3.9 3.3 L (3.5-5.0) g/dL Current Medications Generic Name Dose Route Start Last Admin Trade Name Freq PRN Reason Stop Dose Admin Alprazolam 0.25 mg 01/14/21 18:34 Alprazolam 0.25 Mg Tab PO TID PRN Anxiety Aspirin 81 mg 01/15/21 09:00 Aspirin 81 Mg PO DAILY [facility] Atorvastatin Calcium 80 mg 01/14/21 21:00 01/14/21 21:23 Atorvastatin 80 Mg Tab PO 80 mg HS [facility]KY Administration Fluticasone Propionate 1 spray 01/15/21 09:00 Fluticasone 50mcg/Robinson Nasal 16gm EA NOSTRIL DAILY [facility] Furosemide 20 mg 01/14/21 21:00 01/14/21 21:22 Furosemide 10 Mg/Ml 2 Ml Vial IV 20 mg Q12HR [facility] Administration Heparin Sodium (Porcine) 0 unit 01/14/21 16:17 Heparin Sodium 1,000 Un/Ml (10ml Vl) IV PER PROTOCOL PRN Low PTT Protocol Diltiazem HCl 125 mg/ Sodium 125 mls @ 0 mls/hr 01/14/21 16:15 01/14/21 19:10 Chloride IV 0 mg/kg/hr .Q0M VIKY 0 mls/hr Titration Protocol Per Protocol Heparin Sodium/Sodium Chloride 250 mls @ 7.076 mls/hr 01/14/21 16:30 01/14/21 16:36 25,000 unit/ Sodium Chloride IV 12 units/kg/hr .Q24H [facility]YK 7.076 mls/hr Administration Protocol 12 UNITS/KG/HR Lisinopril 5 mg 01/14/21 21:00 01/14/21 21:22 Lisinopril 5 Mg Tab PO 5 mg BID [facility] Administration Loratadine 10 mg 01/15/21 09:00 Loratadine 10 Mg Tab PO DAILY [facility] Metoprolol Tartrate 50 mg 01/15/21 09:00 Metoprolol Tartrate 50 Mg Tab PO BID [facility] Naloxone HCl 0.2 mg 01/14/21 15:59 Naloxone 0.4 Mg/Ml 1 Ml Vial IV Q2M PRN Opioid Reversal Pantoprazole Sodium 40 mg 01/15/21 07:30 01/15/21 06:24 Pantoprazole 40 Mg Tablet PO 40 mg AC-BRKFST [facility] Administration Spironolactone 25 mg 01/15/21 09:00 Spironolactone 25 Mg Tab PO DAILY [facility] Intake and Output 01/14/21 01/15/21 01/15/21 22:59 06:59 14:59 Intake Total 11.25 7 Balance 11.25 7 Intake: Intake, IV Titration 11.25 7 Amount Diltiazem 125 mg In 11.25 Sodium Chloride 0.9% 100 ml @ Per Protocol IV .Q0M [facility] Rx#:[id number] Heparin Sod,Pork in 0.45% 7 NaCl 25,000 unit In 0.45 % NaCl 1 250ml.bag @ 12 UNITS/KG/HR 7.076 mls/hr IV .Q24H [facility] Rx#: [id number] Other: Voiding Method Toilet Weight 56.2 kg 01/15/21 07:01 01/15/21 07:01
[2021-01-15] MEDS: ATORVASTATIN 80 MG TAB PO SCH (20:16)
[2021-01-16] MEDS: PANTOPRAZOLE 40 MG TABLET PO SCH (06:35)
[2021-01-16 09:43] VITALS: BP 99/52; PULSE 64; RESP 18; TEMP 97.8
[2021-01-16] MEDS: METOPROLOL TARTRATE 50 MG TAB PO SCH (09:43)
[2021-01-16] MEDS: lisinopriL 5 MG TAB PO SCH (09:43)
[2021-01-16] MEDS: LORATADINE 10 MG TAB PO SCH (09:43)
[2021-01-16] MEDS: SPIRONOLACTONE 25 MG TAB PO SCH (09:43)
[2021-01-16] MEDS: FUROSEMIDE 20 MG TAB PO SCH (09:43)
[2021-01-16] MEDS: APIXABAN 5 MG TAB PO SCH (09:43)
[2021-01-16] MEDS: FLUTICASONE 50MCG/SPRAY NASAL 16GM EA NOSTRIL SCH (09:44)
[2021-01-16] MEDS: ASPIRIN 81 MG PO SCH (09:47)
--- NOTE | 2021-01-16 10:32 | ECHOF ---
Referral Reason:A-fib MEASUREMENTS -------- HEIGHT: 149.9 cm WEIGHT: 55.8 kg BP: 102/67 IVSd: 1.1 cm (0.6 - 1.1) LVIDd: 3.8 cm (3.9 - 5.3) LVPWd: 1.1 cm (0.6 - 1.1) EDV(Teich): 62 ml IVSs: 1.6 cm LVIDs: 3.1 cm LVPWs: 1.5 cm %IVS Thck: 41 % ESV(Teich): 38 ml EF(Teich): 39 % %FS: 19 % SV(Teich): 24 ml LA Diam: 3.2 cm (2.7 - 3.8) RVIDd: 3.0 cm (< 3.3) LALs A4C: 5.2 cm LAAs A4C: 15.4 cm LAESV A-L A4C: 39 ml LAESV MOD A4C: 35 ml LALs A2C: 5.8 cm LAAs A2C: 16.1 cm LAESV A-L A2C: 38 ml LAESV MOD A2C: 36 ml LAESV(A-L): 40 ml LAESV Index (A-L): 26.89 ml/m Ao Diam: 3.2 cm (2.0 - 3.7) AV Cusp: 1.5 cm (1.5 - 2.6) EPSS: 0.4 cm MV DecT: 160 ms MV PHT: 47 ms MVA By PHT: 4.7 cm AV Vmax: 0.84 m/s AV maxP.86 mmHg TR Vmax: 2.16 m/s TR maxP.73 mmHg RAP: 5.00 mmHg RVSP: 23.73 mmHg MV EF SLOPE: 81.50 mm/s (70 - 150) MV EXCURSION: 12.97 mm (> 18.000) FINDINGS -------- Atrial fibrillation. This was a technically good study. The left ventricular size is normal. There is borderline concentric left ventricular hypertrophy. Overall left ventricular systolic function is mild-moderately impaired with, an EF between 40 - 45 % . The right ventricle is normal in size. Normal LA size by volume 22+/-6 ml/m2. The right atrium is normal in size. Interatrial and interventricular septum intact. There is mild aortic valve sclerosis. The mitral valve leaflets are mildly thickened. Mild mitral annular calcification present. Mild m itral regurgitation is present. Mild tricuspid regurgitation present. Right ventricular systolic pressure is normal at < 35 mmHg. Trace/mild (physiologic) pulmonic regurgitation. The aortic root size is normal. Normal inferior vena cava with normal inspiratory collapse consistent with estimated right atrial pre ssure of 5 mmHg. There is no pericardial effusion. CONCLUSIONS -------- 1. The left ventricular size is normal. 2. There is borderline concentric left ventricular hypertrophy. 3. Overall left ventricular systolic function is mild-moderately impaired with, an EF between 40 - 45 %. 4. There is mild aortic valve sclerosis. 5. The mitral valve leaflets are mildly thickened. 6. Mild mitral annular calcification present. 7. Mild mitral regurgitation is present. 8. Mild tricuspid regurgitation present. 9. Trace/mild (physiologic) pulmonic regurgitation. 10. There is no pericardial effusion. HEATING EQUIPMENT INSTALLER: Karen Powers RDCS
--- NOTE | 2021-01-16 12:37 | P.PN ---
Subjective Progress Note Date: 01/16/21 This is a pleasant 85-year-old female past medical history significant for coronary artery disease status post multivessel PCI, hypertension and dyslipidemia. She follows in the office with Dr. Phillips. We have been asked to see in consultation for atrial fibrillation. The patient states she started ambulating in the hallways. She states she did get short of breath and a little unsteady on her feet. She denies any dyspnea at rest. No orthopnea. No chest pain or chest pressure. No dizziness or lightheadedness. Recent echocardiogram shows LV function of 40-45% with mild MR GENERAL: Well-appearing, well-nourished and in no acute distress. NECK: Supple without JVD or thyromegaly. LUNGS: Breath sounds clear to auscultation bilaterally. Respiration equal and unlabored. No wheezes, rales or rhonchi. HEART: Regular rate and rhythm without rubs or gallops. S1 and S2 heard. Systolic murmur EXTREMITIES: Normal range of motion, no edema. No clubbing or cyanosis. Periph eral pulses intact and strong. VITALS: The pressure 99/52, pulse rate 94, respiratory rate 18, temperature 97.8F TELEMETRY: Atrial fibrillation with average heart rates in the low 100s. Heart rates elevated in the 120s with ambulation IMPRESSION: Atrial fibrillation with RVR, increase beta angela 75 mg twice daily Coronary artery disease, status post multivessel PCI Mitral regurgitation, mild Hypertension, hypotensive on current regimen Dyslipidemia PLAN: Continue novel anticoagulation Increase metoprolol to 75 mg twice daily for elevated heart rates with ambulation Lisinopril was discontinued to avoid hypotension Further recommendations based on clinical course The patient has been seen and evaluated. Plan of care has been reviewed and agreed upon by Dr Ramos. Objective - Vital Signs Vital signs: Vital Signs Temp 97.8 F 01/16/21 08:00 Pulse 64 01/16/21 08:00 Resp 18 01/16/21 08:00 BP 99/52 01/16/21 08:00 Pulse Ox 99 01/16/21 08:00 Intake & Output 01/15/21 01/16/21 01/16/21 18:59 06:59 18:59 Intake Total 358 240 504 Output Total 200 400 Balance 158 -160 504 Weight 56.2 kg 67 kg Intake: Oral 358 240 504 Output: Urine 200 400 Other: Voiding Method Toilet # Voids 200 # Bowel Movements 1 - Labs CBC & Chem 7: 01/15/21 07:01 01/15/21 07:01
[2021-01-16] MEDS ORDERED: METOPROLOL TARTRATE 25 MG TAB PO SCH (21:00)
--- NOTE | 2021-02-05 08:01 | P.DS ---
Providers Date of admission: 01/14/21 15:59 Expected date of discharge: 01/16/21 Attending physician: Cinda Lucero Consults: 01/14/21 16:00 Consult Physician Urgent Consulting Provider: Sarah Melgar Consult Reason/Comments: new onset afib rvr Do you want consulting provider notified?: Yes Primary care physician: Cinda Lucero Hospital Course: 85-year-old female past medical history significant for coronary artery disease status post multivessel PCI, hypertension and dyslipidemia. She follows in the office with Dr. Phillips. We have been asked to see in consultation for atrial fibrillation. She presented to the hospital with a three-day history of palpitations, generalized weakness, shortness of breath, dizziness and fatigue. On arrival EKG revealed atrial fibrillation with rapid ventricular response heart rate of 129. She was initiated on IV heparin and Cardizem infusions. She continues to be in atrial fibrillation with more controlled ventricular rate at this time and her symptoms have subsided. Chest x-ray reveals mild cardiomegaly with small to tiny bilateral pleural effusions. Laboratory data reviewed, CBC unremarkable, sodium 139, potassium 4.2, creatinine 0.74, magnesium 2.0, cardiac enzymes negative 1, NT proBNP 3300, TSH 2.41 and Covid positive. The patient states she was positive for Covid in October. She has been asymptomatic since that time. Most recent cardiac catheterization in 2015 revealed in-stent restenosis of the mid RCA, PCI was performed at that time. She also has subtotal occlusion of the LAD in the midportion and a stent in the ostial portion, stent in the circumflex at that time was patent. Most recent echocardiogram obtained in the office 2018 revealed preserved LV systolic function with ejection fraction 55%, moderate concentric LVH, moderately dilated left atrium, mild MR, mild TR and mild pulmonary regurgitation. Most recent stress test performed in August 2019 was a dobutamine stress test that was normal. New onset paroxysmal atrial fibrillation with rapid ventricular response Coronary artery disease status post multivessel PCI Hypertension Dyslipidemia Cardiology evaluated patient and recommended following PLAN PCP has transitioned to Eliquis 5 mg twice a day. Discontinue Cardizem infusion and continue metoprolol as ordered. Echocardiogram has been obtained and will be reviewed. Patient can be discharged home from a cardiac perspective, follow-up in the office with Dr. Ramos next week. Patient Condition at Discharge: Serious Plan - Discharge Summary New Discharge Prescriptions: New Furosemide [Lasix] 20 mg PO DAILY #30 tab Pantoprazole [Protonix] 40 mg PO AC-BRKFST #30 tablet. Metoprolol Tartrate [Lopressor] 75 mg PO BID #60 tab Continue Atorvastatin [Lipitor] 80 mg PO HS #30 tab lisinopriL [Zestril] 5 mg PO BID #60 tab Spironolactone [Aldactone] 25 mg PO DAILY #30 tab ALPRAZolam [Xanax] 0.125 - 0.25 mg PO TID PRN PRN Reason: Anxiety Aspirin EC [Ecotrin Low Dose] 81 mg PO DAILY Fluticasone Nasal [place] [Flonase Nasal [place]] 1 spr EA NOSTRIL DAILY Loratadine [Claritin] 10 mg PO DAILY Discontinued Metoprolol Tartrate [Lopressor] 25 mg PO BID #30 tab No Action Rivaroxaban [Xarelto] 20 mg PO HS Sennosides [Senna] 17.2 mg PO HS PRN PRN Reason: Constipation Discharge Medication List Atorvastatin [Lipitor] 80 mg PO HS #30 tab 05/19/16 [Rx] Spironolactone [Aldactone] 25 mg PO DAILY #30 tab 05/19/16 [Rx] lisinopriL [Zestril] 5 mg PO BID #60 tab 05/19/16 [Rx] ALPRAZolam [Xanax] 0.125 - 0.25 mg PO TID PRN 09/18/17 [History] Aspirin EC [Ecotrin Low Dose] 81 mg PO DAILY 09/12/19 [History] Fluticasone Nasal [place] [Flonase Nasal [place]] 1 spr EA NOSTRIL DAILY 01/14/21 [History] Loratadine [Claritin] 10 mg PO DAILY 01/14/21 [History] Furosemide [Lasix] 20 mg PO DAILY #30 tab 01/16/21 [Rx] Metoprolol Tartrate [Lopressor] 75 mg PO BID #60 tab 01/16/21 [Rx] Pantoprazole [Protonix] 40 mg PO AC-BRKFST #30 tablet. 01/16/21 [Rx] Rivaroxaban [Xarelto] 20 mg PO HS 01/22/21 [History] Sennosides [Senna] 17.2 mg PO HS PRN 01/22/21 [History] Follow up Appointment(s)/Referral(s): Nirmal Phillips MD [Family Provider] - 01/28/21 9:30 am Cinda Lucero MD [Primary Care Provider] - 1-2 days Patient Instructions/Handouts: A-fib (Atrial Fibrillation) (DC) Discharge Disposition: HOME SELF-CARE
== END 2021-01-16 12:59 | disposition home or self-care (01) | DRG 308 ==
LOC: EC 14:37 → 3SCARD 15:59
PROVIDERS: ADMIT Internal Medicine; ATTEND Internal Medicine
DX: I48.0 Paroxysmal atrial fibrillation (principal); I50.33 Acute on chronic diastolic (congestive) heart failure; E87.1 Hypo-osmolality and hyponatremia; I24.0 Acute coronary thrombosis not resulting in myocardial infarction; J45.909 Unspecified asthma, uncomplicated; I25.10 Atherosclerotic heart disease of native coronary artery without angina pectoris; M19.90 Unspecified osteoarthritis, unspecified site; E78.5 Hyperlipidemia, unspecified; Z95.5 Presence of coronary angioplasty implant and graft; Z90.711 Acquired absence of uterus with remaining cervical stump; F32.9 Major depressive disorder, single episode, unspecified; F41.9 Anxiety disorder, unspecified; N31.9 Neuromuscular dysfunction of bladder, unspecified; I11.0 Hypertensive heart disease with heart failure; K21.9 Gastro-esophageal reflux disease without esophagitis; J30.9 Allergic rhinitis, unspecified; Z87.19 Personal history of other diseases of the digestive system; I34.0 Nonrheumatic mitral (valve) insufficiency; I95.9 Hypotension, unspecified; Z79.01 Long term (current) use of anticoagulants; Z79.82 Long term (current) use of aspirin; Z79.899 Other long term (current) drug therapy; Z80.0 Family history of malignant neoplasm of digestive organs; Z86.73 Personal history of transient ischemic attack (TIA), and cerebral infarction without residual deficits; Z86.16 Personal history of COVID-19; I25.2 Old myocardial infarction; G62.9 Polyneuropathy, unspecified
CPT/HCPCS: 36415; 71045; 80053; 83605; 83735; 83880; 84443; 84484; 85025; 85610; 85730; 87635; 93005; 93306; 93970; 99285

== ENCOUNTER 2021-01-22 17:02 | Emergency (ER) | payer MEDICARE, BC ==
--- NOTE | 2021-01-22 17:55 | ED ---
General Adult HPI - General Chief complaint: Chest Pain Stated complaint: Chest pain, hypotensive Time Seen by Provider: 01/22/21 17:27 Source: patient, family, RN notes reviewed Mode of arrival: wheelchair Limitations: no limitations - History of Present Illness Initial comments: Patient is a pleasant 85-year-old female presenting to the emergency department with lower chest discomfort. Onset of symptoms was morning. Symptoms have been waxing and waning, minimal at this point. Patient has had some associated dyspnea. Minimal nausea. No diaphoresis. Patient did have similar symptoms previously associated with gastric ulcer. - Related Data Home Medications Medication Instructions Recorded Confirmed ALPRAZolam [Xanax] 0.125 - 0.25 mg PO TID PRN 09/18/17 01/22/21 Aspirin EC [Ecotrin Low Dose] 81 mg PO DAILY 09/12/19 01/22/21 Fluticasone Nasal Blum [Flonase 1 spr EA NOSTRIL DAILY 01/14/21 01/22/21 Nasal Blum] Loratadine [Claritin] 10 mg PO DAILY 01/14/21 01/22/21 Rivaroxaban [Xarelto] 20 mg PO HS 01/22/21 01/22/21 Sennosides [Senna] 17.2 mg PO HS PRN 01/22/21 01/22/21 Previous Rx's Medication Instructions Recorded Atorvastatin [Lipitor] 80 mg PO HS #30 tab 05/19/16 Spironolactone [Aldactone] 25 mg PO DAILY #30 tab 05/19/16 lisinopriL [Zestril] 5 mg PO BID #60 tab 05/19/16 Furosemide [Lasix] 20 mg PO DAILY #30 tab 01/16/21 Metoprolol Tartrate [Lopressor] 75 mg PO BID #60 tab 01/16/21 Pantoprazole [Protonix] 40 mg PO AC-BRKFST #30 tablet. 01/16/21 Allergies Allergy/AdvReac Type Severity Reaction Status Date / Time methylprednisolone Allergy Rash/Hives Verified 01/22/21 18:19 cephalexin [From Keflex] AdvReac Cramps Verified 01/22/21 18:19 Review of Systems ROS Statement: Those systems with pertinent positive or pertinent negative responses have been documented in the HPI. ROS Other: All systems not noted in ROS Statement are negative. Constitutional: Denies: fever Eyes: Denies: eye pain ENT: Denies: ear pain Respiratory: Reports: as per HPI. Denies: cough Cardiovascular: Reports: as per HPI, chest pain Endocrine: Reports: fatigue Gastrointestinal: Denies: abdominal pain Genitourinary: Denies: dysuria Musculoskeletal: Denies: back pain Skin: Denies: rash Neurological: Denies: weakness Past Medical History Past Medical History: Asthma, Coronary Artery Disease (CAD), Heart Failure, CVA/TIA, Eye Disorder, GERD/Reflux, GI Bleed, Hyperlipidemia, Hypertension, Myocardial Infarction ([place]), Osteoarthritis (OA), Pneumonia, Skin Disorder Additional Past Medical History / Comment(s): 2016 possible TIA, murmur, bronchitis, neuropathy bilateral lower legs/feet, edema lower legs/feet, hematemesis/suspected upper GI bleed/anemia with blood transfusion, past gastric ulcer, UTIs, incomplete emptying of bladder, overactive bladder, diverticular disease, arthritis in spine and toes with pain, starting of bilateral cataracts. COVID 11/17- given antibodies Last Myocardial Infarction Date:: 04/2016 History of Any Multi-Drug Resistant Organisms: None Reported Past Surgical History: Heart Catheterization With Stent, Hysterectomy Additional Past Surgical History / Comment(s): Multiple cardiac stents, D&C, colonoscopy Past Anesthesia/Blood Transfusion Reactions: No Reported Reaction Date of Last Stent Placement:: 06/08/16 Past Psychological History: Anxiety, Depression Smoking Status: Never smoker Past Alcohol Use History: None Reported Past Drug Use History: None Reported - Past Family History Son(s) Family Medical History: Cancer Father Family Medical History: Cancer Additional Family Medical History / Comment(s): Father of colon cancer when he was "elderly" Mother Family Medical History: CVA/TIA Additional Family Medical History / Comment(s): Mother at 89yrs a year after a massive CVA that left her paralyzed. General Exam Limitations: no limitations General appearance: alert, in no apparent distress Head exam: Present: normocephalic Eye exam: Present: normal appearance, PERRL ENT exam: Present: normal oropharynx Neck exam: Present: normal inspection Respiratory exam: Present: normal lung sounds bilaterally. Absent: chest wall tenderness Cardiovascular Exam: Present: irregular rhythm Expanded Peripheral pulses: 2+: Radial (R), Radial (L), Posterior Tibialis (R), Posterior Tibialis (L) GI/Abdominal exam: Present: soft. Absent: tenderness Extremities exam: Present: normal inspection Neurological exam: Present: alert Psychiatric exam: Present: normal affect, normal mood Skin exam: Present: normal color Course Vital Signs 01/22/21 01/22/21 17:16 18:43 Temperature 97.6 F Pulse Rate 94 84 Respiratory 20 18 Rate Blood Pressure 120/64 122/56 O2 Sat by Pulse 99 100 Oximetry EKG Findings - EKG Comments: EKG Findings:: Atrial fibrillation with a rate of 95. QRS 78. QT 366. QTc 459. Normal axis. Q wave in lead III. No acute ST change. Medical Decision Making - Medical Decision Making Case was discussed with Dr. Lucero who is familiar with this patient. Patient was recently admitted. He does request doing a repeat troponin level and discharge if unchanged. Patient was reevaluated and updated. - Lab Data Result diagrams: 01/22/21 17:57 01/22/21 17:57 Lab Results 01/22/21 01/22/21 01/22/21 Range/Units 17:57 17:57 17:57 WBC 5.1 (3.8-10.6) k/uL RBC 5.09 (3.80-5.40) m/uL Hgb 13.6 (11.4-16.0) gm/dL Hct 41.2 (34.0-46.0) % MCV 81.0 (80.0-100.0) fL MCH 26.6 (25.0-35.0) pg MCHC 32.9 (31.0-37.0) g/dL RDW 14.6 (11.5-15.5) % Plt Count 260 (150-450) k/uL MPV 8.2 Neutrophils % 56 % Lymphocytes % 33 % Monocytes % 7 % Eosinophils % 1 % Basophils % 1 % Neutrophils # 2.8 (1.3-7.7) k/uL Lymphocytes # 1.7 (1.0-4.8) k/uL Monocytes # 0.4 (0-1.0) k/uL Eosinophils # 0.1 (0-0.7) k/uL Basophils # 0.0 (0-0.2) k/uL PT 10.9 (9.0-12.0) sec INR 1.0 (<1.2) APTT 24.4 (22.0-30.0) sec Sodium 136 L (137-145) mmol/L Potassium 4.2 (3.5-5.1) mmol/L Chloride 102 (98-107) mmol/L Carbon Dioxide 25 (22-30) mmol/L Anion Gap 9 mmol/L BUN 20 H (7-17) mg/dL Creatinine 0.84 (0.52-1.04) mg/dL Est GFR (CKD-EPI)AfAm 73 (>60 ml/min/1.73 sqM) Est GFR (CKD-EPI)NonAf 64 (>60 ml/min/1.73 sqM) Glucose 110 H (74-99) mg/dL Calcium 9.1 (8.4-10.2) mg/dL Magnesium 2.1 (1.6-2.3) mg/dL Total Bilirubin 0.3 (0.2-1.3) mg/dL AST 28 (14-36) U/L ALT 15 (4-34) U/L Alkaline Phosphatase 101 (38-126) U/L Troponin I (0.000-0.034) ng/mL NT-Pro-B Natriuret Pep pg/mL Total Protein 7.1 (6.3-8.2) g/dL Albumin 4.1 (3.5-5.0) g/dL 01/22/21 01/22/21 01/22/21 Range/Units 17:57 17:57 19:38 WBC (3.8-10.6) k/uL RBC (3.80-5.40) m/uL Hgb (11.4-16.0) gm/dL Hct (34.0-46.0) % MCV (80.0-100.0) fL MCH (25.0-35.0) pg MCHC (31.0-37.0) g/dL RDW (11.5-15.5) % Plt Count (150-450) k/uL MPV Neutrophils % % Lymphocytes % % Monocytes % % Eosinophils % % Basophils % % Neutrophils # (1.3-7.7) k/uL Lymphocytes # (1.0-4.8) k/uL Monocytes # (0-1.0) k/uL Eosinophils # (0-0.7) k/uL Basophils # (0-0.2) k/uL PT (9.0-12.0) sec INR (<1.2) APTT (22.0-30.0) sec Sodium (137-145) mmol/L Potassium (3.5-5.1) mmol/L Chloride (98-107) mmol/L Carbon Dioxide (22-30) mmol/L Anion Gap mmol/L BUN (7-17) mg/dL Creatinine (0.52-1.04) mg/dL Est GFR (CKD-EPI)AfAm (>60 ml/min/1.73 sqM) Est GFR (CKD-EPI)NonAf (>60 ml/min/1.73 sqM) Glucose (74-99) mg/dL Calcium (8.4-10.2) mg/dL Magnesium (1.6-2.3) mg/dL Total Bilirubin (0.2-1.3) mg/dL AST (14-36) U/L ALT (4-34) U/L Alkaline Phosphatase (38-126) U/L Troponin I <0.012 <0.012 (0.000-0.034) ng/mL NT-Pro-B Natriuret Pep 1540 pg/mL Total Protein (6.3-8.2) g/dL Albumin (3.5-5.0) g/dL - Radiology Data Radiology results: image reviewed (X-rays show acute abnormality.) Disposition Clinical Impression: Chest pain Disposition: HOME SELF-CARE Condition: Stable Instructions (If sedation given, give patient instructions): Chest Pain (ED) Additional Instructions: Please do follow-up with Dr. Lucero in the beginning of the week. Return for increased pain, difficult to breathing, worsening or changing symptoms or any other concerns. Is patient prescribed a controlled substance at d/c from ED?: No Referrals: Cinda Lucero MD [Primary Care Provider] - 1-2 days Time of Disposition: 20:46
[2021-01-22] MEDS: ASPIRIN 81 MG PO STA (18:00)
[2021-01-22 18:11] LABS: Basophils % (A) 1 %; Eosinophils # (A) 0.1 k/uL (0-0.7); Eosinophils % (A) 1 %; HCT 41.2 % (34.0-46.0); HGB 13.6 gm/dL (11.4-16.0); Lymphocytes # (A) 1.7 k/uL (1.0-4.8); Lymphocytes % (A) 33 %; MCH 26.6 pg (25.0-35.0); MCHC 32.9 g/dL (31.0-37.0); Mean Platelet Volume 8.2; Monocytes # (A) 0.4 k/uL (0-1.0); Monocytes % (A) 7 %; Neutrophils # (A) 2.8 k/uL (1.3-7.7); Neutrophils % (A) 56 %; Platelet Count 260 k/uL (150-450); RBC 5.09 m/uL (3.80-5.40); RDW 14.6 % (11.5-15.5); WBC 5.1 k/uL (3.8-10.6)
[2021-01-22 18:19] LABS: Partial Thromboplastin Time 24.4 sec (22.0-30.0); Prothrombin Time 10.9 sec (9.0-12.0)
[2021-01-22 18:23] LABS: Albumin 4.1 g/dL (3.5-5.0); Calcium 9.1 mg/dL (8.4-10.2); Magnesium 2.1 mg/dL (1.6-2.3); Potassium 4.2 mmol/L (3.5-5.1); Total Bilirubin 0.3 mg/dL (0.2-1.3); Total Protein 7.1 g/dL (6.3-8.2)
--- NOTE | 2021-01-22 18:35 | XR ---
EXAMINATION TYPE: XR chest 2V DATE OF EXAM: 01/22/2021 COMPARISON: 01/14/2021 HISTORY: Chest pain TECHNIQUE: FINDINGS: There is mild blunting of the costophrenic angles. Heart size is fairly normal. There is no heart failure. There are no hilar masses. The bones are osteopenic. There is no evidence of mediasti nal adenopathy. IMPRESSION: Small pleural effusions which are not significantly different than last exam. No heart fa ilure seen.
[2021-01-22 18:44] VITALS: RESP 18
[2021-01-22] MEDS: SUCRALFATE 1 GM TAB PO STA (20:05)
[2021-01-22 21:14] VITALS: BP 144/77; PULSE 70; TEMP 97
== END 2021-01-22 21:03 | disposition home or self-care (01) ==
LOC: EC 17:02
DX: R07.89 Other chest pain (principal); E78.5 Hyperlipidemia, unspecified; F32.9 Major depressive disorder, single episode, unspecified; F41.9 Anxiety disorder, unspecified; I11.0 Hypertensive heart disease with heart failure; I50.9 Heart failure, unspecified; I25.10 Atherosclerotic heart disease of native coronary artery without angina pectoris; I25.2 Old myocardial infarction; J45.909 Unspecified asthma, uncomplicated; K21.9 Gastro-esophageal reflux disease without esophagitis; M19.90 Unspecified osteoarthritis, unspecified site; Z79.82 Long term (current) use of aspirin; Z86.73 Personal history of transient ischemic attack (TIA), and cerebral infarction without residual deficits; Z95.5 Presence of coronary angioplasty implant and graft; Z90.710 Acquired absence of both cervix and uterus
CPT/HCPCS: 36415; 71046; 80053; 83735; 83880; 84484; 85025; 85610; 85730; 93005; 99285

== ENCOUNTER 2021-02-15 12:35 | Inpatient (IN) | payer MEDICARE, BC ==
[2021-02-15] MEDS ORDERED: ASPIRIN 81 MG PO STA (13:35)
[2021-02-15] MEDS ORDERED: NITROGLYCERIN SL TABS 0.4 MG TAB SUBLINGUAL STA (13:56)
--- NOTE | 2021-02-15 13:59 | ED ---
General Adult HPI - General Chief complaint: Chest Pain Stated complaint: chest pain Time Seen by Provider: 02/15/21 13:34 Source: patient, family, RN notes reviewed Mode of arrival: wheelchair Limitations: no limitations - History of Present Illness Initial comments: Patient is a pleasant 86-year-old female presenting to the emergency Department with chest discomfort. Onset of symptoms was yesterday. Symptoms have been fairly persistent and moderate. Comfort is somewhat improved. Discomfort feels like an ache with some radiation up to the neck and back. Patient does feel congested with occasional cough with clear sputum. No history of similar symptoms previously. Discomfort does increase with deep breaths. No leg pain or leg swelling. - Related Data Home Medications Medication Instructions Recorded Confirmed Aspirin EC [Ecotrin Low Dose] 81 mg PO DAILY 09/12/19 02/15/21 Rivaroxaban [Xarelto] 20 mg PO HS 01/22/21 02/15/21 Sennosides [Senna] 17.2 mg PO HS PRN 01/22/21 02/15/21 Previous Rx's Medication Instructions Recorded Atorvastatin [Lipitor] 80 mg PO HS #30 tab 05/19/16 Furosemide [Lasix] 20 mg PO DAILY #30 tab 01/16/21 Metoprolol Tartrate [Lopressor] 75 mg PO BID #60 tab 01/16/21 Pantoprazole [Protonix] 40 mg PO AC-BRKFST #30 tablet. 01/16/21 Allergies Allergy/AdvReac Type Severity Reaction Status Date / Time methylprednisolone Allergy Rash/Hives Verified 02/15/21 12:51 cephalexin [From Keflex] AdvReac Cramps Verified 02/15/21 12:51 Review of Systems ROS Statement: Those systems with pertinent positive or pertinent negative responses have been documented in the HPI. ROS Other: All systems not noted in ROS Statement are negative. Constitutional: Denies: fever Eyes: Denies: eye pain ENT: Denies: ear pain Respiratory: Reports: cough Cardiovascular: Reports: chest pain Endocrine: Denies: fatigue Gastrointestinal: Denies: abdominal pain Genitourinary: Denies: dysuria Musculoskeletal: Denies: back pain Skin: Denies: rash Neurological: Denies: weakness Past Medical History Past Medical History: Asthma, Coronary Artery Disease (CAD), Heart Failure, CVA/TIA, Eye Disorder, GERD/Reflux, GI Bleed, Hyperlipidemia, Hypertension, Myocardial Infarction (MS), Osteoarthritis (OA), Pneumonia, Skin Disorder Additional Past Medical History / Comment(s): 2015 possible TIA, murmur, bronchitis, neuropathy bilateral lower legs/feet, edema lower legs/feet, hematemesis/suspected upper GI bleed/anemia with blood transfusion, past gastric ulcer, UTIs, incomplete emptying of bladder, overactive bladder, diverticular disease, arthritis in spine and toes with pain, starting of bilateral cataracts. COVID 11/17- given antibodies Last Myocardial Infarction Date:: 04/2016 History of Any Multi-Drug Resistant Organisms: None Reported Past Surgical History: Heart Catheterization With Stent, Hysterectomy Additional Past Surgical History / Comment(s): Multiple cardiac stents, D&C, colonoscopy Past Anesthesia/Blood Transfusion Reactions: No Reported Reaction Date of Last Stent Placement:: 06/08/16 Past Psychological History: Anxiety, Depression Smoking Status: Never smoker Past Alcohol Use History: None Reported Past Drug Use History: None Reported - Past Family History Son(s) Family Medical History: Cancer Father Family Medical History: Cancer Additional Family Medical History / Comment(s): Father of colon cancer when he was "elderly" Mother Family Medical History: CVA/TIA Additional Family Medical History / Comment(s): Mother at 89yrs a year after a massive CVA that left her paralyzed. General Exam Limitations: no limitations General appearance: alert, in no apparent distress Head exam: Present: normocephalic Eye exam: Present: normal appearance Neck exam: Present: normal inspection Respiratory exam: Present: normal lung sounds bilaterally. Absent: respiratory distress Cardiovascular Exam: Present: irregular rhythm Expanded Peripheral pulses: 2+: Radial (R), Radial (L), Dorsalis Pedis (R), Dorsalis Pedis (L) GI/Abdominal exam: Present: soft. Absent: tenderness Extremities exam: Present: normal inspection. Absent: pedal edema, calf tenderness Neurological exam: Present: alert Psychiatric exam: Present: normal affect, normal mood Skin exam: Present: normal color Course Vital Signs 02/15/21 02/15/21 12:51 13:10 Temperature 98.2 F Pulse Rate 107 H Respiratory 18 16 Rate Blood Pressure 132/84 O2 Sat by Pulse 99 Oximetry EKG Findings - EKG Comments: EKG Findings:: A. fib with a rate of 74. QRS 80. QT 420. QTc 466. Normal axis. Normal QRS. No acute ST change. Medical Decision Making - Medical Decision Making Patient reevaluated and resting comfortably in bed. Patient and family updated on results and plan. Case was discussed in detail with Dr. Lucero who would like to admit his patient with cardiology consult and Lasix 20 every 12 - Lab Data Result diagrams: 02/15/21 14:14 02/15/21 14:14 Lab Results 02/15/21 02/15/21 02/15/21 Range/Units 14:14 14:14 14:14 WBC 6.5 (3.8-10.6) k/uL RBC 4.31 (3.80-5.40) m/uL Hgb 12.0 (11.4-16.0) gm/dL Hct 34.9 (34.0-46.0) % MCV 80.9 (80.0-100.0) fL MCH 27.9 (25.0-35.0) pg MCHC 34.5 (31.0-37.0) g/dL RDW 14.8 (11.5-15.5) % Plt Count 266 (150-450) k/uL MPV 7.1 Neutrophils % 71 % Lymphocytes % 19 % Monocytes % 7 % Eosinophils % 1 % Basophils % 1 % Neutrophils # 4.6 (1.3-7.7) k/uL Lymphocytes # 1.3 (1.0-4.8) k/uL Monocytes # 0.4 (0-1.0) k/uL Eosinophils # 0.1 (0-0.7) k/uL Basophils # 0.0 (0-0.2) k/uL PT 12.8 H (9.0-12.0) sec INR 1.2 H (<1.2) APTT 28.1 (22.0-30.0) sec D-Dimer 0.24 (<0.60) mg/L FEU Sodium 133 L (137-145) mmol/L Potassium 4.9 (3.5-5.1) mmol/L Chloride 100 (98-107) mmol/L Carbon Dioxide 27 (22-30) mmol/L Anion Gap 6 mmol/L BUN 20 H (7-17) mg/dL Creatinine 0.98 (0.52-1.04) mg/dL Est GFR (CKD-EPI)AfAm 60 (>60 ml/min/1.73 sqM) Est GFR (CKD-EPI)NonAf 52 (>60 ml/min/1.73 sqM) Glucose 92 (74-99) mg/dL Calcium 9.2 (8.4-10.2) mg/dL Magnesium 2.1 (1.6-2.3) mg/dL Total Bilirubin 0.5 (0.2-1.3) mg/dL AST 24 (14-36) U/L ALT 13 (4-34) U/L Alkaline Phosphatase 90 (38-126) U/L Troponin I (0.000-0.034) ng/mL Total Protein 6.8 (6.3-8.2) g/dL Albumin 3.8 (3.5-5.0) g/dL 02/15/21 Range/Units 14:14 WBC (3.8-10.6) k/uL RBC (3.80-5.40) m/uL Hgb (11.4-16.0) gm/dL Hct (34.0-46.0) % MCV (80.0-100.0) fL MCH (25.0-35.0) pg MCHC (31.0-37.0) g/dL RDW (11.5-15.5) % Plt Count (150-450) k/uL MPV Neutrophils % % Lymphocytes % % Monocytes % % Eosinophils % % Basophils % % Neutrophils # (1.3-7.7) k/uL Lymphocytes # (1.0-4.8) k/uL Monocytes # (0-1.0) k/uL Eosinophils # (0-0.7) k/uL Basophils # (0-0.2) k/uL PT (9.0-12.0) sec INR (<1.2) APTT (22.0-30.0) sec D-Dimer (<0.60) mg/L FEU Sodium (137-145) mmol/L Potassium (3.5-5.1) mmol/L Chloride (98-107) mmol/L Carbon Dioxide (22-30) mmol/L Anion Gap mmol/L BUN (7-17) mg/dL Creatinine (0.52-1.04) mg/dL Est GFR (CKD-EPI)AfAm (>60 ml/min/1.73 sqM) Est GFR (CKD-EPI)NonAf (>60 ml/min/1.73 sqM) Glucose (74-99) mg/dL Calcium (8.4-10.2) mg/dL Magnesium (1.6-2.3) mg/dL Total Bilirubin (0.2-1.3) mg/dL AST (14-36) U/L ALT (4-34) U/L Alkaline Phosphatase (38-126) U/L Troponin I <0.012 (0.000-0.034) ng/mL Total Protein (6.3-8.2) g/dL Albumin (3.5-5.0) g/dL - Radiology Data Radiology results: image reviewed (Chest x-ray shows some cephalization and mild effusions, correlate for mild CHF) Disposition Clinical Impression: Chest pain Disposition: ADMITTED IP TO THIS [facility] Is patient prescribed a controlled substance at d/c from ED?: No Referrals: Cinda Lucero MD [Primary Care Provider] - 1-2 days Decision Time: 15:41
[2021-02-15 14:27] LABS: Basophils % (A) 1 %; Eosinophils # (A) 0.1 k/uL (0-0.7); Eosinophils % (A) 1 %; HCT 34.9 % (34.0-46.0); Lymphocytes # (A) 1.3 k/uL (1.0-4.8); Lymphocytes % (A) 19 %; MCH 27.9 pg (25.0-35.0); MCHC 34.5 g/dL (31.0-37.0); MCV 80.9 fL (80.0-100.0); Mean Platelet Volume 7.1; Monocytes # (A) 0.4 k/uL (0-1.0); Monocytes % (A) 7 %; Neutrophils # (A) 4.6 k/uL (1.3-7.7); Neutrophils % (A) 71 %; Platelet Count 266 k/uL (150-450); RBC 4.31 m/uL (3.80-5.40); RDW 14.8 % (11.5-15.5); WBC 6.5 k/uL (3.8-10.6)
--- NOTE | 2021-02-15 14:37 | XR ---
12/12/2020 EXAMINATION TYPE: XR chest 2V DATE OF EXAM: 02/15/2021 COMPARISON: 01/22/2021, 12/12/2020 HISTORY: 86-year-old female with chest pain TECHNIQUE: PA and lateral views FINDINGS: Heart borderline enlarged. Hyperinflation. Coronary stent. No esther consolidation. Possible nodular p leural thickening at the periphery of the left base. There are trace pleural effusions, similar to th at seen on 12/12/2020 IMPRESSION: Cardiomegaly. COPD. Trace bilateral pleural effusions. Query any signs or symptoms of fluid overload state. Some questionable nodularity at the periphery of the left base has an appearance unchanged fro m 12/12/2020. An additional 6 month follow-up can be performed.
[2021-02-15 14:42] LABS: Albumin 3.8 g/dL (3.5-5.0); Calcium 9.2 mg/dL (8.4-10.2); Magnesium 2.1 mg/dL (1.6-2.3); Potassium 4.9 mmol/L (3.5-5.1); Total Bilirubin 0.5 mg/dL (0.2-1.3); Total Protein 6.8 g/dL (6.3-8.2)
[2021-02-15 14:44] LABS: D-Dimer 0.24 mg/L FEU (<0.60); INR 1.2 (<1.2); Prothrombin Time 12.8 sec (9.0-12.0)
[2021-02-15 14:45] LABS: Partial Thromboplastin Time 28.1 sec (22.0-30.0)
[2021-02-15] MEDS ORDERED: NITROGLYCERIN SL TABS 0.4 MG TAB SUBLINGUAL PRN (15:42)
[2021-02-15] MEDS: FUROSEMIDE 10 MG/ML 2 ML VIAL IV SCH ×2 (16:02→23:36)
[2021-02-15] MEDS ORDERED: SENNOSIDES 8.6 MG TAB PO PRN (18:46)
--- NOTE | 2021-02-15 19:29 | P.HPIM ---
History of Present Illness H&P Date: 02/15/21 Chief Complaint: Shortness of breath HISTORY OF PRESENT ILLNESS: This is an 85-year-old female one of my patient with a previous medical history significant for hypertension and hypertensive cardiovascular disease, hyperlipidemia, history of coronary artery disease status post PCI and stent placement, chronic diastolic heart failure, GERD, patient presented to the emergency department at [facility] with increased shortness breath, she was found to have atrial fibrillation with rapid ventricular response about a month ago and she was seen in consultation by cardiology she was placed on Xarelto 20 mg once every day along with metoprolol 75 mg orally twice every day and she followed up with me as an outpatient she was doing fine, patient also was following with and she was taken off Lisinopril and Spironolactone was added alog with Amiodarone 200 mg orally bid and she was supposed to follow up with him this Monday,patient was sitting don and suddenly she developed to have increased mid sternal chest pain radiating to her throat and the back of her neck associated with increased shortness of breath, she has ran out of her Furosemide about a few weeks back, and she has been complaining of increased dyspnea on exertion along with effort angina, so she came to the Emergency department at [facility] and her 12-Lead EKG showed atrial fibrillation with controlled rate, chest x-ray showed minimal perivascular congestion and minimal pleural effusion bilaterally she was admitted to the hospital for Unstable angina and acute diastolic heart failure she was started on IV Lasix 20 mg IV push every 12 hours, she will be seen in consultation by cardiology, she will need heart catherization. REVIEW OF SYSTEMS: Constitutional: No documented fever, no chills, no night sweats. No weight change. No weakness, fatigue or lethargy. No daytime sleepiness. HEENT: No headache. No blurred vision or double vision, no loss of vision. No loss of Hearing, no ringing in the ears, no dizziness. No nasal drainage or congestion. No epistaxis. No sore throat. Lungs: positive for shortness of breath, no cough, no sputum production. No wheezing. Reports dyspnea with activity. Cardiovascular: positive for chest pain, no lower extremity edema. No palpitations. Positive for paroxysmal nocturnal dyspnea. positive for orthopnea. No lightheadedness or dizziness. No syncopal episodes. Abdominal: Reports no abdominal pain. No nausea, vomiting. No diarrhea. No constipation. No bloody or tarry stools reports loss of appetite. Genitourinary: No dysuria, increased frequency, urgency. No urinary retention. Musculoskeletal: No myalgias. No muscle weakness, no gait dysfunction, no frequent falls. No back pain. No neck pain. Integumentary: No wounds, no lesions. No rash or pruritus. No unusual bruising. No change in hair or nails. Neurologic: No aphasia. No facial droop. No change in mentation. No head injury. No headache. No paralysis. No paresthesia. Psychiatric: No depression. No anxiety. No mood swings. Endocrine: No abnormal blood sugars. No weight change. PAST MEDICAL HISTORY: Hypertension and hypertensive cardiovascular disease. Hyperlipidemia. CAD post-PCI. GERD TIA/CVA. Chronic diastolic heart failure. Osteoarthritis. Peripheral neuropathy. Anxiety. Depression. Spondylosis of the lumbar spine . Detrusor instability. ALLERGIC rhinitis. Paroxysmal atrial fibrillation PAST SURGICAL HISTORY: left heart catheterization with PCI 10 stents 2019 last one Partial hysterectomy Colonoscopy SOCIAL HISTORY: this is a lifelong nonsmoker, she denies any alcohol ingestion, no drug use or abuse. FAMILY HISTORY: father at age of 85 from colon cancer, mother at age of 91 from massive CVA that left her paralyzed, patient had 4 brothers one accidentally the other one from AL the other 2 brothers are alive one of them with Alzheimer dementia the other one had CAD post-CABG and aVR patient had 5 sisters one of her sisters at the age of 58 from lung cancer and AL, the rest of the sisters are okay, patient had 5 sons one of them from lung cancer the others are okay patient has 3 daughters one of them with CAD post-PCI in the other 2 are normal PHYSICAL EXAMINATION: General: 85-year-old female laying down in bed in minimal respiratory distress per HEENT: Head is atraumatic, normocephalic, pupils were equal round reactive to light and recommendation, extraocular muscle movement were intact, sclera nonicteric, conjunctivae were pale, mucous membranes of the mouth are somewhat dry. Neck: Supple, no JVP, normal carotid upstroke bilaterally, no lymphadenopathy. Chest: Decreased breath sounds at the bases, few rhonchi, wheeze minimal expiratory s, no chest wall tenderness, no intercostal retractions. Heart: First heart sound is normal, second heart sounds normal, irregularly irregular,there is systolic ejection murmur 2/6 located in the left sternal border. Abdomen: Soft, nontender, nondistended, positive bowel sounds. Extremities: There is no edema no calf tenderness DP +2 bilaterally. Neurologic examination: Patient is awake alert and oriented X3 , cranial nerves II-12 appear grossly intact, muscle power were 5 out of 5 in upper extremities and 5 out of 5 in bilateral lower extremities, deep tendon reflexes normal bilaterally. ASSESSMENT AND PLAN: 1. Acute diastolic heart failure. Continue patient on metoprolol 50 mg orally twice every day, continue patient on Lasix 20 mg IV push every 12 hours, continue Spironolactone 25 mg orally daily , patient did have an Echocardiogram about a month ago in the hospital, input and output and daily weight, monitor CMP and magnesium level, cardiology consultation. 2. History of CAD post-PCI with unstable angina Continue patient on aspirin 81 mg once every day, atorvastatin 80 mg once every day, metoprolol 50 mg orally twice every day, she will need Heart Catherization, we will hold Xarelto for tonight. 3. Hypertension and hypertensive cardiovascular disease. Continue metoprolol 50 mg orally twice every day, monitor the patient blood pressure very closely. 4. Hyperlipidemia. Continue patient on atorvastatin 80 mg orally once every day. 5. Anxiety. stable. 6. ALLERGIC rhinitis. seems to be stable. 7. History of TIA/CVA. Likely related to paroxysmal atrial fibrillation patient will be maintained on aspirin 81 mg once every day,Atorvastatin 80 mg orally daily and Xarelto 20 mg orally daily for life.. 8. Detrusor instability. Stable. 9. GERD with history of GI bleed. Start the patient on Protonix 40 mg orally once every day, add Carafate 1 gr orally bid 10. Atrial fibrillation. we will continue with Amiodarone 200 mg orally bid, Metoprolol 50 mg orally bid and Xarelto 20 mg po daily. 11. DVT prophylaxis. Continue with xarelto 20 mg orally daily. . 12. Admit to inpatient. Estimate a length of stay 2 midnights. 13. Patient is full code. Past Medical History Past Medical History: Asthma, Coronary Artery Disease (CAD), Heart Failure, CVA/TIA, Eye Disorder, GERD/Reflux, GI Bleed, Hyperlipidemia, Hypertension, Myocardial Infarction (AL), Osteoarthritis (OA), Pneumonia, Skin Disorder Additional Past Medical History / Comment(s): 2015 possible TIA, murmur, bronchitis, neuropathy bilateral lower legs/feet, edema lower legs/feet, hematemesis/suspected upper GI bleed/anemia with blood transfusion, past gastric ulcer, UTIs, incomplete emptying of bladder, overactive bladder, diverticular disease, arthritis in spine and toes with pain, starting of bilateral cataracts. COVID 11/17- given antibodies Last Myocardial Infarction Date:: 04/2016 History of Any Multi-Drug Resistant Organisms: None Reported Past Surgical History: Heart Catheterization With Stent, Hysterectomy Additional Past Surgical History / Comment(s): Multiple cardiac stents, D&C, colonoscopy Past Anesthesia/Blood Transfusion Reactions: No Reported Reaction Date of Last Stent Placement:: 06/08/16 Past Psychological History: Anxiety, Depression Smoking Status: Never smoker Past Alcohol Use History: None Reported Past Drug Use History: None Reported - Past Family History Son(s) Family Medical History: Cancer Father Family Medical History: Cancer Additional Family Medical History / Comment(s): Father of colon cancer when he was "elderly" Mother Family Medical History: CVA/TIA Additional Family Medical History / Comment(s): Mother at 89yrs a year after a massive CVA that left her paralyzed. Medications and Allergies Home Medications Medication Instructions Recorded Confirmed Type Atorvastatin [Lipitor] 80 mg PO HS #30 tab 05/19/16 02/15/21 Rx Aspirin EC [Ecotrin Low Dose] 81 mg PO DAILY 09/12/19 02/15/21 History Furosemide [Lasix] 20 mg PO DAILY #30 tab 01/16/21 02/15/21 Rx Metoprolol Tartrate [Lopressor] 75 mg PO BID #60 tab 01/16/21 02/15/21 Rx Pantoprazole [Protonix] 40 mg PO AC-BRKFST #30 tablet. 01/16/21 02/15/21 Rx Rivaroxaban [Xarelto] 20 mg PO HS 01/22/21 02/15/21 History Sennosides [Senna] 17.2 mg PO HS PRN 01/22/21 02/15/21 History Allergies Allergy/AdvReac Type Severity Reaction Status Date / Time methylprednisolone Allergy Rash/Hives Verified 02/15/21 12:51 cephalexin [From Keflex] AdvReac Cramps Verified 02/15/21 12:51 Physical Exam Vitals: Vital Signs Temp Pulse Resp BP Pulse Ox 02/15/21 15:44 98 18 108/68 99 02/15/21 13:10 16 02/15/21 12:51 98.2 F 107 H 18 132/84 99 Intake and Output 02/15/21 02/15/21 02/15/21 06:59 14:59 22:59 Other: Weight 57.153 kg Results CBC & Chem 7: 02/15/21 14:14 02/15/21 14:14 Labs: Abnormal Lab Results - Last 24 Hours (Table) 02/15/21 02/15/21 Range/Units 14:14 14:14 PT 12.8 H (9.0-12.0) sec INR 1.2 H (<1.2) Sodium 133 L (137-145) mmol/L BUN 20 H (7-17) mg/dL
[2021-02-15] MEDS ORDERED: ATORVASTATIN 80 MG TAB PO SCH (21:00)
[2021-02-15] MEDS ORDERED: METOPROLOL TARTRATE 25 MG TAB PO SCH (21:00)
[2021-02-15] MEDS ORDERED: RIVAROXABAN 20 MG TAB PO SCH (21:00)
[2021-02-15] MEDS: NITROGLYCERIN OINT 1 INCH/GM PACKET TOPICAL SCH (22:17)
[2021-02-15] MEDS: AMIODARONE 200 MG TAB PO SCH (22:28)
[2021-02-15] MEDS: METOPROLOL TARTRATE 25 MG TAB PO SCH (22:43)
[2021-02-16] MEDS: NITROGLYCERIN OINT 1 INCH/GM PACKET TOPICAL SCH ×3 (02:19→11:10)
[2021-02-16 02:49] VITALS: RESP 18
[2021-02-16] MEDS ORDERED: SUCRALFATE 1 GM TAB PO SCH (07:30)
[2021-02-16] MEDS ORDERED: PANTOPRAZOLE 40 MG TABLET PO SCH (07:30)
[2021-02-16 08:38] VITALS: BP 112/64; PULSE 94; TEMP 98.3
[2021-02-16] MEDS ORDERED: SPIRONOLACTONE 25 MG TAB PO SCH (09:00)
[2021-02-16] MEDS ORDERED: ASPIRIN 81 MG PO SCH (09:00)
[2021-02-16] MEDS ORDERED: ASPIRIN 325 MG TAB PO SCH (09:00)
[2021-02-16] MEDS ORDERED: bisacodyL 5 MG TABLET.DR PO STA (09:17)
[2021-02-16] MEDS: FUROSEMIDE 10 MG/ML 2 ML VIAL IV SCH (09:19)
[2021-02-16 09:20] LABS: Basophils # (A) 0.03 X 10*3/uL (0.00-0.10); Basophils % (A) 0.5 %; Eosinophils # (A) 0.02 X 10*3/uL (0.04-0.35); Eosinophils % (A) 0.3 %; HCT 36.8 % (37.2-46.3); HGB 11.7 g/dL (12.0-15.0); Lymphocytes # (A) 1.43 X 10*3/uL (0.90-5.00); Lymphocytes % (A) 21.7 %; MCH 26.5 pg (27.0-32.0); MCHC 31.8 g/dL (32.0-37.0); MCV 83.3 fL (80.0-97.0); Mean Platelet Volume 10.5 fL (9.5-12.2); Monocytes # (A) 0.76 X 10*3/uL (0.20-1.00); Monocytes % (A) 11.5 %; Neutrophils # (A) 4.34 X 10*3/uL (1.80-7.70); Neutrophils % (A) 65.7 %; Platelet Count 267 X 10*3/uL (140-440); RBC 4.42 X 10*6/uL (4.10-5.20); RDW 15.1 % (11.5-14.5)
[2021-02-16] MEDS: AMIODARONE 200 MG TAB PO SCH (10:33)
[2021-02-16] MEDS: METOPROLOL TARTRATE 25 MG TAB PO SCH (10:33)
--- NOTE | 2021-02-16 11:07 | P.CRDCN ---
History of Present Illness History of present illness: HISTORY OF PRESENTING ILLNESS This is a pleasant 85-year-old female past medical history significant for coronary artery disease status post multivessel PCI, hypertension and dyslip idemia, and paroxysmal atrial fibrillation. Recent Covid-19 infection in October 2020. She follows in the office with Dr. Phillips. We have been asked to see in consultation for chest pain. Monday afternoon in the afternoon, started to have crushing chest pain, radiating to her neck and then to her upper back. Lasted from home and all last night in the hospital. She did not take a Nitro at home. Nitro in the hospital did not help. Describes it has crushing pressure, similar to when she had her stents in 2016. Worse with deep breath and activity. Associated shortness of breath, some nausea, and lightheaded. No history of stroke or Diabetes. Non smoker. She does sleep in a recliner at times due to comfort, but denies waking up short of breath or difficulty lying flat. She only sleeps with one pillow. No longer having chest pain this morning. Patient was recently admitted with new onset atrial fibrillation with RVR on 01/15/20, she was discharged Xarelto and metoprolol tartrate 50 mg twice a day. Patient recently followed up with Dr. Phillips on 01/28/2021. Patient was started on amiodarone 200 mg twice a day to her regimen and reevaluate her in 3 weeks to consider electrical cardioversion. DIAGNOSTICS: EKG revealed atrial fibrillation, heart rate 74, nonspecific STT wave abnormalities. Previous EKG in 12/2020 patient was in atrial fibrillation with rapid ventricular response heart rate of 129. EKG 01/28/2021 in the office patient was in atrial fibrillation, heart rate 104 Telemetry reviewed patient stays to be in atrial fibrillation with ventricular rate controlled rates Most recent cardiac catheterization in 2015 revealed in-stent restenosis of the mid RCA, PCI was performed at that time. She also has subtotal occlusion of the LAD in the midportion and a stent in the ostial portion, stent in the circumflex at that time was patent. Most recent echocardiogram 01/15/2021 with an EF of 40-45%, mild mitral regurgitation, mild tricuspid regurgitation Echocardiogram obtained in the office 2019 revealed preserved LV systolic function with ejection fraction 55%, moderate concentric LVH, moderately dilated left atrium, mild MR, mild TR and mild pulmonary regurgitation. Most recent stress test performed in August 2019 was a dobutamine stress test that was normal. REVIEW OF SYSTEMS At the time of my exam: CONSTITUTIONAL: Denies fever or chills. CARDIOVASCULAR: +chest pain, +shortness of breath Denies chest pain, shortness of breath, orthopnea, PND or palpitations. RESPIRATORY: Denies cough. GASTROINTESTINAL: Denies abdominal pain, diarrhea, constipation, nausea or vomiting. MUSCULOSKELETAL: Denies myalgias. NEUROLOGIC: Denies numbness, tingling, headacbe or weakness. ENDOCRINE: Denies fatigue, weight change, polydipsia or polyurina. GENITOURINARY: Denies burning, hematuria or urgency with micturation. HEMATOLOGIC: Denies history of anemia or bleeding. PHYSICAL EXAMINATION Blood pressure heart rate afebrile and maintaining oxygen saturation on room air. CONSTITUTIONAL: No apparent distress. HEENT: Head is normocephalic. Pupils are equal, round. Sclerae anicteric. Mucous membranes of the mouth are moist. No JVD. No carotid bruit. CHEST EXAMINATION: Lungs are clear to auscultation. No chest wall tenderness is noted on palpation or with deep breathing. HEART EXAMINATION: Irregular rate and rhythm. S1, S2 heard. Systolic ejection murmur at the left sternal border, no gallops or rub. ABDOMEN: Soft, nontender. Positive bowel sounds. EXTREMITIES: 2+ peripheral pulses, no lower extremity edema and no calf tenderness. NEUROLOGIC EXAMINATION: Patient is awake, alert and oriented x3. ASSESSMENT Chest Pain, not indicative of acute coronary syndrome Paroxysmal atrial fibrillation - on Xarelto Coronary artery disease status post multivessel PCI Hypertension Dyslipidemia PLAN -No need for repeat echocardiogram with patient having a recent test on 01/15/2021 -We recommend conservative medical treatment at this time for the patient. With discussion with the patient, she would like to follow up with Dr. Phillips with her appointment tomorrow 02/17/21 and stress test as an outpatient. This was discussed with Dr. Phillips and Dr. Berrios. From cardiology perspective, patient can be discharged and follow up with Dr. Phillips with her scheduled appointment tomorrow in 02/17/2021 -Continue patient's home medications atorvastatin, aspirin, Xarelto, spironolactone, amiodarone, metoprolol tartrate. Patient was told her lisinopril was recently discontinued Nurse Practitioner note has been reviewed, I agree with a documented findings and plan of care. Patient was seen and examined Past Medical History Past Medical History: Asthma, Coronary Artery Disease (CAD), Heart Failure, CVA/TIA, Eye Disorder, GERD/Reflux, GI Bleed, Hyperlipidemia, Hypertension, Myocardial Infarction (HI), Osteoarthritis (OA), Pneumonia, Skin Disorder Additional Past Medical History / Comment(s): 2015 possible TIA, murmur, bronchitis, neuropathy bilateral lower legs/feet, edema lower legs/feet, hematemesis/suspected upper GI bleed/anemia with blood transfusion, past gastric ulcer, UTIs, incomplete emptying of bladder, overactive bladder, diverticular disease, arthritis in spine and toes with pain, starting of bilateral cataracts. COVID 11/17- given antibodies Last Myocardial Infarction Date:: 04/2016 History of Any Multi-Drug Resistant Organisms: None Reported Past Surgical History: Heart Catheterization With Stent, Hysterectomy Additional Past Surgical History / Comment(s): Multiple cardiac stents, D&C, colonoscopy Past Anesthesia/Blood Transfusion Reactions: No Reported Reaction Date of Last Stent Placement:: 06/08/16 Past Psychological History: Anxiety, Depression Additional Psychological History / Comment(s): Pt has a son who is disabled from a motorcycle accident that resides with her and who is mostly independent. She learned yesterday, 09/12/19 that her isabell in law who has been battling cancer is now stage IV and going into hospice and pt states she was anxious all day. She is independent. She drives. Smoking Status: Never smoker Past Alcohol Use History: None Reported Past Drug Use History: None Reported - Past Family History Son(s) Family Medical History: Cancer Father Family Medical History: Cancer Additional Family Medical History / Comment(s): Father of colon cancer when he was "elderly" Mother Family Medical History: CVA/TIA Additional Family Medical History / Comment(s): Mother at 89yrs a year after a massive CVA that left her paralyzed. Medications and Allergies Home Medications Medication Instructions Recorded Confirmed Type Atorvastatin [Lipitor] 80 mg PO HS #30 tab 05/19/16 02/15/21 Rx Aspirin EC [Ecotrin Low Dose] 81 mg PO DAILY 09/12/19 02/15/21 History Furosemide [Lasix] 20 mg PO DAILY #30 tab 01/16/21 02/15/21 Rx Pantoprazole [Protonix] 40 mg PO AC-BRKFST #30 tablet. 01/16/21 02/15/21 Rx Rivaroxaban [Xarelto] 20 mg PO HS 01/22/21 02/15/21 History Sennosides [Senna] 17.2 mg PO HS PRN 01/22/21 02/15/21 History Amiodarone [Cordarone] 200 mg PO BID 02/16/21 02/16/21 History Metoprolol Tartrate [Lopressor] 50 mg PO BID #60 tab 02/16/21 02/15/21 Rx Spironolactone [Aldactone] 25 mg PO DAILY 02/16/21 02/16/21 History Allergies Allergy/AdvReac Type Severity Reaction Status Date / Time methylprednisolone Allergy Rash/Hives Verified 02/15/21 12:51 cephalexin [From Keflex] AdvReac Cramps Verified 02/15/21 12:51 Physical Exam Vitals: Vital Signs Temp Pulse Pulse Resp BP BP Pulse Ox 02/16/21 02:00 97.5 F L 62 18 100/58 99 02/15/21 20:54 88 20 102/66 99 02/15/21 20:00 97.6 F 86 20 124/75 97 02/15/21 15:44 98 18 108/68 99 02/15/21 13:10 16 02/15/21 12:51 98.2 F 107 H 18 132/84 99 Intake and Output 02/15/21 02/16/21 02/16/21 22:59 06:59 14:59 Other: Voiding Method Toilet # Voids 2 1 Weight 57.153 kg Results 02/16/21 05:51 02/15/21 14:14 Cardiac Enzymes 02/15/21 02/15/21 02/15/21 Range/Units 14:14 14:14 17:42 AST 24 (14-36) U/L Troponin I <0.012 <0.012 (0.000-0.034) ng/mL 02/15/21 Range/Units 21:36 AST (14-36) U/L Troponin I <0.012 (0.000-0.034) ng/mL Coagulation 02/15/21 Range/Units 14:14 PT 12.8 H (9.0-12.0) sec APTT 28.1 (22.0-30.0) sec CBC 02/15/21 Range/Units 14:14 WBC 6.5 (3.8-10.6) k/uL RBC 4.31 (3.80-5.40) m/uL Hgb 12.0 (11.4-16.0) gm/dL Hct 34.9 (34.0-46.0) % Plt Count 266 (150-450) k/uL Comprehensive Metabolic Panel 02/15/21 Range/Units 14:14 Sodium 133 L (137-145) mmol/L Potassium 4.9 (3.5-5.1) mmol/L Chloride 100 (98-107) mmol/L Carbon Dioxide 27 (22-30) mmol/L BUN 20 H (7-17) mg/dL Creatinine 0.98 (0.52-1.04) mg/dL Glucose 92 (74-99) mg/dL Calcium 9.2 (8.4-10.2) mg/dL AST 24 (14-36) U/L ALT 13 (4-34) U/L Alkaline Phosphatase 90 (38-126) U/L Total Protein 6.8 (6.3-8.2) g/dL Albumin 3.8 (3.5-5.0) g/dL Current Medications Generic Name Dose Route Start Last Admin Trade Name Freq PRN Reason Stop Dose Admin Amiodarone HCl 200 mg 02/15/21 21:00 02/15/21 22:28 Amiodarone 200 Mg Tab PO 200 mg BID VIKY Administration Aspirin 81 mg 02/16/21 09:00 Aspirin 81 Mg PO DAILY VIKY Atorvastatin Calcium 80 mg 02/15/21 21:00 02/15/21 22:29 Atorvastatin 80 Mg Tab PO 80 mg HS VIKY Administration Furosemide 20 mg 02/15/21 15:45 02/15/21 23:36 Furosemide 10 Mg/Ml 2 Ml Vial IV 20 mg Q12HR VIKY Administration Metoprolol Tartrate 50 mg 02/15/21 21:00 02/15/21 22:43 Metoprolol Tartrate 25 Mg Tab PO 50 mg BID VIKY Administration Nitroglycerin 0.4 mg 02/15/21 15:42 Nitroglycerin Sl Tabs 0.4 Mg Tab SUBLINGUAL Q5M PRN Chest Pain Nitroglycerin 1 inch 02/15/21 18:00 02/16/21 02:19 Nitroglycerin Oint 1 Inch/Gm Packet TOPICAL Not Given Q6HR [facility] Pantoprazole Sodium 40 mg 02/16/21 07:30 Pantoprazole 40 Mg Tablet PO AC-BRKFST [facility] Rivaroxaban 20 mg 02/16/21 17:30 Rivaroxaban 20 Mg Tab PO W/SUPPER [facility] Protocol Senna 17.2 mg 02/15/21 18:46 Sennosides 8.6 Mg Tab PO HS PRN Constipation Spironolactone 25 mg 02/16/21 09:00 Spironolactone 25 Mg Tab PO DAILY [facility] Sucralfate 1 gm 02/16/21 07:30 Sucralfate 1 Gm Tab PO AC-BID [facility] Intake and Output 02/15/21 02/16/21 02/16/21 22:59 06:59 14:59 Other: Voiding Method Toilet # Voids 2 1 Weight 57.153 kg 02/15/21 14:14 02/15/21 14:14
--- NOTE | 2021-02-16 13:11 | P.DS ---
Providers Date of admission: 02/16/21 08:35 Expected date of discharge: 02/16/21 Attending physician: Cinda Lucero Consults: 02/15/21 15:42 Consult Physician Urgent Consulting Provider: Ron Berrios Consult Reason/Comments: cp, possible chf Do you want consulting provider notified?: Yes Primary care physician: Cinda Lucero Hospital Course: HISTORY OF PRESENT ILLNESS: This is an 85-year-old female one of my patient with a previous medical history significant for hypertension and hypertensive cardiovascular disease, hyperlipidemia, history of coronary artery disease status post PCI and stent placement, chronic diastolic heart failure, GERD, patient presented to the emergency department at [facility] with increased shortness breath, she was found to have atrial fibrillation with rapid ventricular response about a month ago and she was seen in consultation by cardiology she was placed on Xarelto 20 mg once every day along with metoprolol 75 mg orally twice every day and she followed up with me as an outpatient she was doing fine, patient also was following with and she was taken off Lisinopril and Spironolactone was added alog with Amiodarone 200 mg orally bid and she was supposed to follow up with him this Monday,patient was sitting don and suddenly she developed to have increased mid sternal chest pain radiating to her throat and the back of her neck associated with increased shortness of breath, she has ran out of her Furosemide about a few weeks back, and she has been complaining of increased dyspnea on exertion along with effort angina, so she came to the Emergency department at [facility] and her 12-Lead EKG showed atrial fibrillation with controlled rate, chest x-ray showed minimal perivascular congestion and minimal pleural effusion bilaterally she was admitted to the hospital for Unstable angina and acute diastolic heart failure she was started on IV Lasix 20 mg IV push every 12 hours, she will be seen in consultation by cardiology, she will need heart catherization. 02/16: Patient has been seen by cardiology with recommendations for conservative management and has been cleared for discharge with planned follow-up with Dr. ROGELIO Phillips. Patient has been afebrile, heart rate 94, blood pressure 112/64, pulse ox 97% on room air. Repeat blood work reveals WBC 6.6, hemoglobin 11.7, platelet count 267. Patient will be discharged home today in stable condition. ASSESSMENT AND PLAN: 1. Acute diastolic heart failure. 2. History of CAD post-PCI with unstable angina 3. Hypertension and hypertensive cardiovascular disease. 4. Hyperlipidemia. 5. Generalized anxiety disorder. 6. ALLERGIC rhinitis. 7. History of TIA/CVA. Likely related to paroxysmal atrial fibrillation. 8. Detrusor instability. 9. GERD with history of GI bleed. 10. Atrial fibrillation, paroxysmal DISCHARGE PLAN Home Impression and plan of care have been directed as dictated by the signing physician. Linda Pastrana nurse practitioner acting as scribe for signing physician. Patient Condition at Discharge: Good Plan - Discharge Summary Discharge Rx Participant: No New Discharge Prescriptions: New Sucralfate [Carafate] 1 gm PO AC-BID #60 tab Continue Atorvastatin [Lipitor] 80 mg PO HS #30 tab Aspirin EC [Ecotrin Low Dose] 81 mg PO DAILY Furosemide [Lasix] 20 mg PO DAILY #30 tab Rivaroxaban [Xarelto] 20 mg PO HS Spironolactone [Aldactone] 25 mg PO DAILY Amiodarone [Cordarone] 200 mg PO BID Pantoprazole [Protonix] 40 mg PO AC-BRKFST #30 tablet. Sennosides [Senna] 17.2 mg PO HS PRN PRN Reason: Constipation Changed Metoprolol Tartrate [Lopressor] 50 mg PO BID #60 tab Discharge Medication List Atorvastatin [Lipitor] 80 mg PO HS #30 tab 05/19/16 [Rx] Aspirin EC [Ecotrin Low Dose] 81 mg PO DAILY 09/12/19 [History] Furosemide [Lasix] 20 mg PO DAILY #30 tab 01/16/21 [Rx] Pantoprazole [Protonix] 40 mg PO AC-BRKFST #30 tablet. 01/16/21 [Rx] Rivaroxaban [Xarelto] 20 mg PO HS 01/22/21 [History] Sennosides [Senna] 17.2 mg PO HS PRN 01/22/21 [History] Amiodarone [Cordarone] 200 mg PO BID 02/16/21 [History] Metoprolol Tartrate [Lopressor] 50 mg PO BID #60 tab 02/16/21 [Rx] Spironolactone [Aldactone] 25 mg PO DAILY 02/16/21 [History] Sucralfate [Carafate] 1 gm PO AC-BID #60 tab 02/16/21 [Rx] Follow up Appointment(s)/Referral(s): Nirmal Phillips MD [STAFF PHYSICIAN] - 02/17/21 11:30 am (appointment at 1130 am) Cinda Lucero MD [Primary Care Provider] - 1 Week [facility] Visiting Nurse, [NON-STAFF] - 1-2 Days Patient Instructions/Handouts: Chest Pain (DC) Discharge Disposition: HOME WITH HOME HEALTH SERVICES
[2021-02-16 13:37] VITALS: BMI 25.4
[2021-02-16 14:10] LABS: ALT 13 U/L (8-44); AST 20 U/L (13-35); African American GFR (CKD) 59.1 (60.0-200.0); Albumin/Globulin Ratio 1.41 (1.60-3.17); Alkaline Phosphatase 89 U/L (41-126); Calcium 8.5 mg/dL (8.7-10.3); Carbon Dioxide 26.9 mmol/L (21.6-31.8); Chloride 100 mmol/L (96-109); Chol/HDL Ratio 3.39; Cholesterol 122 mg/dL (0-200); Globulin 2.7 g/dL (1.6-3.3); Glucose 92 mg/dL (70-110); Potassium 4.3 mmol/L (3.5-5.5); Sodium 134 mmol/L (135-145); Total Bilirubin 1.1 mg/dL (0.2-1.2); Total Protein 6.5 g/dL (6.2-8.2); Triglycerides <50.0 mg/dL (0.0-149.0)
[2021-02-16] MEDS ORDERED: RIVAROXABAN 20 MG TAB PO SCH (17:30)
== END 2021-02-16 11:26 | disposition home health service (06) | DRG 293 ==
LOC: EC 12:35 → 6NMEDSUR 15:42 → OBSVTOIN 02-16 08:35
PROVIDERS: ADMIT Internal Medicine; ATTEND Internal Medicine
DX: I11.0 Hypertensive heart disease with heart failure (principal); I50.33 Acute on chronic diastolic (congestive) heart failure; E78.5 Hyperlipidemia, unspecified; I25.110 Atherosclerotic heart disease of native coronary artery with unstable angina pectoris; I48.0 Paroxysmal atrial fibrillation; K21.9 Gastro-esophageal reflux disease without esophagitis; N31.9 Neuromuscular dysfunction of bladder, unspecified; M19.90 Unspecified osteoarthritis, unspecified site; G62.9 Polyneuropathy, unspecified; M47.816 Spondylosis without myelopathy or radiculopathy, lumbar region; J30.9 Allergic rhinitis, unspecified; I08.1 Rheumatic disorders of both mitral and tricuspid valves; I27.20 Pulmonary hypertension, unspecified; F41.1 Generalized anxiety disorder; F32.9 Major depressive disorder, single episode, unspecified; Z20.822 Contact with and (suspected) exposure to COVID-19; Z90.711 Acquired absence of uterus with remaining cervical stump; Z79.899 Other long term (current) drug therapy; Z79.01 Long term (current) use of anticoagulants; Z95.5 Presence of coronary angioplasty implant and graft; Z86.73 Personal history of transient ischemic attack (TIA), and cerebral infarction without residual deficits; Z79.82 Long term (current) use of aspirin; Z88.1 Allergy status to other antibiotic agents; Z88.8 Allergy status to other drugs, medicaments and biological substances
CPT/HCPCS: 36415; 71046; 80053; 80061; 83735; 83880; 84484; 85025; 85379; 85610; 85730; 87635; 93005; 99285

== ENCOUNTER → 2022-01-05 | Outpatient (CLI) | payer MEDICARE, BC ==
[2022-01-05 23:53] LABS: African American GFR (CKD) 59.1 (60.0-200.0); Anion Gap 10.7 mmol/L (10.00-18.00); BUN/Creat Ratio 18.7 Ratio (12.00-20.00); Blood Urea Nitrogen 18.7 mg/dL (9.0-27.0); Carbon Dioxide 26.3 mmol/L (20.0-27.5)
== END | disposition home or self-care (01) ==
LOC: LABWHC1 14:25
PROVIDERS: ATTEND Nurse Practitioner
DX: R06.02 Shortness of breath (principal)
CPT/HCPCS: 36415; 80048

== ENCOUNTER 2022-01-15 08:32 | Emergency (ER) | payer MEDICARE, BC ==
[2022-01-15 08:41] VITALS: TEMP 98.6
[2022-01-15] MEDS ORDERED: BEBTELOVIMAB (EUA) 175 MG/2 ML VIAL IV ONE (10:00)
--- NOTE | 2022-01-15 10:03 | ED ---
URI HPI - General Chief Complaint: Upper Respiratory Infection Stated Complaint: Cough,Fever Time Seen by Provider: 01/15/22 08:44 Source: patient, RN notes reviewed Mode of arrival: ambulatory Limitations: no limitations - History of Present Illness Initial Comments: This is a 86 year old female presents emergency Department with chief complaint of COVID-19. Patient states she started symptoms 2 days ago states his test positive at home yesterday. Patient has nasal congestion mild cough no shortness breath no chest pain mild fever, body aches. Patient states that she had covert primarily in the past along with Pfizer vaccine. - Related Data Home Medications Medication Instructions Recorded Confirmed Aspirin EC [Ecotrin Low Dose] 81 mg PO DAILY 09/12/19 02/15/21 Rivaroxaban [Xarelto] 20 mg PO HS 01/22/21 02/15/21 Sennosides [Senna] 17.2 mg PO HS PRN 01/22/21 02/15/21 Amiodarone [Cordarone] 200 mg PO BID 02/16/21 02/16/21 Spironolactone [Aldactone] 25 mg PO DAILY 02/16/21 02/16/21 Previous Rx's Medication Instructions Recorded Atorvastatin [Lipitor] 80 mg PO HS #30 tab 05/19/16 Furosemide [Lasix] 20 mg PO DAILY #30 tab 01/16/21 Pantoprazole [Protonix] 40 mg PO AC-BRKFST #30 tablet. 01/16/21 Metoprolol Tartrate [Lopressor] 50 mg PO BID #60 tab 02/16/21 Sucralfate [Carafate] 1 gm PO AC-BID #60 tab 02/16/21 Allergies Allergy/AdvReac Type Severity Reaction Status Date / Time methylprednisolone Allergy Rash/Hives Verified 01/15/22 08:36 cephalexin [From Keflex] AdvReac Cramps Verified 01/15/22 08:36 Review of Systems ROS Statement: Those systems with pertinent positive or pertinent negative responses have been documented in the HPI. ROS Other: All systems not noted in ROS Statement are negative. Past Medical History Past Medical History: Asthma, Coronary Artery Disease (CAD), Heart Failure, CVA/TIA, Eye Disorder, GERD/Reflux, GI Bleed, Hyperlipidemia, Hypertension, Myocardial Infarction (MA), Osteoarthritis (OA), Pneumonia, Skin Disorder Additional Past Medical History / Comment(s): 2015 possible TIA, murmur, bronchitis, neuropathy bilateral lower legs/feet, edema lower legs/feet, hematemesis/suspected upper GI bleed/anemia with blood transfusion, past gastric ulcer, UTIs, incomplete emptying of bladder, overactive bladder, diverticular disease, arthritis in spine and toes with pain, starting of bilateral cataracts. COVID 11/17- given antibodies Last Myocardial Infarction Date:: 04/2016 History of Any Multi-Drug Resistant Organisms: None Reported Past Surgical History: Heart Catheterization With Stent, Hysterectomy Additional Past Surgical History / Comment(s): Multiple cardiac stents, D&C, colonoscopy Past Anesthesia/Blood Transfusion Reactions: No Reported Reaction Date of Last Stent Placement:: 06/08/16 Past Psychological History: Anxiety, Depression Smoking Status: Never smoker Past Alcohol Use History: None Reported Past Drug Use History: None Reported - Past Family History Son(s) Family Medical History: Cancer Father Family Medical History: Cancer Additional Family Medical History / Comment(s): Father of colon cancer when he was "elderly" Mother Family Medical History: CVA/TIA Additional Family Medical History / Comment(s): Mother at 89yrs a year after a massive CVA that left her paralyzed. General Exam Limitations: no limitations General appearance: alert, in no apparent distress Head exam: Present: atraumatic, normocephalic, normal inspection Eye exam: Present: normal appearance, PERRL, EOMI. Absent: scleral icterus, conjunctival injection, periorbital swelling ENT exam: Present: normal exam, normal oropharynx, mucous membranes moist Neck exam: Present: normal inspection, full ROM. Absent: tenderness, meningismus, lymphadenopathy Respiratory exam: Present: normal lung sounds bilaterally. Absent: respiratory distress, wheezes, rales, rhonchi, stridor Cardiovascular Exam: Present: regular rate, normal rhythm, normal heart sounds. Absent: systolic murmur, diastolic murmur, rubs, gallop, clicks Course Vital Signs 01/15/22 01/15/22 08:37 08:56 Temperature 98.6 F Pulse Rate 75 Respiratory 16 22 Rate Blood Pressure 146/70 O2 Sat by Pulse 99 Oximetry Medical Decision Making - Medical Decision Making Patient has positive covid 19 did receive monoclonal antibodies will be discharged in stable condition return parameters were discussed. - Lab Data Lab Results 01/15/22 Range/Units 08:43 Coronavirus (PCR) Detected A (Not Detectd) Disposition Clinical Impression: COVID-19 Disposition: HOME SELF-CARE Condition: Stable Instructions (If sedation given, give patient instructions): COVID-19 (Coronavirus Disease 2019) (ED) Additional Instructions: Please return to the Emergency Department if symptoms worsen or any other concerns. Is patient prescribed a controlled substance at d/c from ED?: No Referrals: Cinda Lucero MD [Primary Care Provider] - 1-2 days Time of Disposition: 10:03
[2022-01-15 10:57] VITALS: BP 146/80; PULSE 70; RESP 20
== END 2022-01-15 11:06 | disposition home or self-care (01) ==
LOC: EC 08:32
DX: U07.1 COVID-19 (principal); J45.909 Unspecified asthma, uncomplicated; I11.0 Hypertensive heart disease with heart failure; E78.5 Hyperlipidemia, unspecified; I25.2 Old myocardial infarction; Z88.1 Allergy status to other antibiotic agents; Z88.8 Allergy status to other drugs, medicaments and biological substances
CPT/HCPCS: 87635; 99284; Q0222

== ENCOUNTER 2022-05-20 00:26 | Emergency (ER) | payer MEDICARE, BC ==
[2022-05-20 01:06] VITALS: TEMP 98.1
--- NOTE | 2022-05-20 01:46 | ED ---
Chest Pain HPI - General Chief Complaint: Chest Pain Stated Complaint: chest pain Time Seen by Provider: 05/20/22 01:34 Source: patient, RN notes reviewed, old records reviewed Mode of arrival: ambulatory Limitations: no limitations - History of Present Illness Initial Comments: This is a 87-year-old female with accompanied medical history patient coming in for multiple complaints. The complaint being neck pain. As well as chest pain. Patient states the main pain in that she moves her neck and different directions MD Complaint: chest pain -: hour(s) Onset: during rest Pain Location: substernal Pain Radiation: none Severity: moderate Severity scale (1-10): 4 Quality: tightness, aching, heaviness Consistency: constant Improves With: nothing Worsens With: exertion Anginal Symptoms: dyspnea Other Symptoms: palpitations Treatments Prior to Arrival: none - Related Data Home Medications Medication Instructions Recorded Confirmed Aspirin EC [Ecotrin Low Dose] 81 mg PO DAILY 09/12/19 05/23/22 Rivaroxaban [Xarelto] 20 mg PO 1500 01/22/21 05/23/22 Amiodarone [Cordarone] 100 mg PO BID 02/16/21 05/23/22 Spironolactone [Aldactone] 25 mg PO DAILY 02/16/21 05/23/22 ALPRAZolam [Xanax] 0.25 mg PO BID PRN 05/20/22 05/23/22 Atorvastatin [Lipitor] 40 mg PO HS 05/20/22 05/23/22 Cetirizine HCl [Zyrtec] 10 mg PO DAILY 05/20/22 05/23/22 Previous Rx's Medication Instructions Recorded Furosemide [Lasix] 20 mg PO DAILY #30 tab 01/16/21 Metoprolol Tartrate [Lopressor] 50 mg PO BID #60 tab 02/16/21 Allergies Allergy/AdvReac Type Severity Reaction Status Date / Time methylprednisolone Allergy Rash/Hives Verified 05/23/22 09:14 cephalexin [From Keflex] AdvReac Cramps Verified 05/23/22 09:14 Review of Systems ROS Statement: Those systems with pertinent positive or pertinent negative responses have been documented in the HPI. ROS Other: All systems not noted in ROS Statement are negative. EKG Findings - EKG Comments: EKG Findings:: EKG A. fib 82 QRS 90 QTC 436 Past Medical History Past Medical History: Asthma, Coronary Artery Disease (CAD), Heart Failure, CVA/TIA, Eye Disorder, GERD/Reflux, GI Bleed, Hyperlipidemia, Hypertension, Myocardial Infarction ([place]), Osteoarthritis (OA), Pneumonia, Skin Disorder Additional Past Medical History / Comment(s): 2015 possible TIA, murmur, bronchitis, neuropathy bilateral lower legs/feet, edema lower legs/feet, hematemesis/suspected upper GI bleed/anemia with blood transfusion, past gastric ulcer, UTIs, incomplete emptying of bladder, overactive bladder, diverticular disease, arthritis in spine and toes with pain, starting of bilateral cataracts. COVID 11/17- given antibodies Last Myocardial Infarction Date:: 04/2016 History of Any Multi-Drug Resistant Organisms: None Reported Past Surgical History: Heart Catheterization With Stent, Hysterectomy Additional Past Surgical History / Comment(s): Multiple cardiac stents, D&C, colonoscopy Past Anesthesia/Blood Transfusion Reactions: No Reported Reaction Date of Last Stent Placement:: 06/08/16 Past Psychological History: Anxiety, Depression Smoking Status: Never smoker Past Alcohol Use History: None Reported Past Drug Use History: None Reported - Past Family History Son(s) Family Medical History: Cancer Father Family Medical History: Cancer Additional Family Medical History / Comment(s): Father of colon cancer when he was "elderly" Mother Family Medical History: CVA/TIA Additional Family Medical History / Comment(s): Mother at 89yrs a year aft er a massive CVA that left her paralyzed. General Exam Limitations: no limitations General appearance: alert, in no apparent distress Head exam: Present: atraumatic, normocephalic, normal inspection Eye exam: Present: normal appearance, PERRL, EOMI. Absent: scleral icterus, conjunctival injection, periorbital swelling ENT exam: Present: normal exam, mucous membranes moist Neck exam: Present: normal inspection. Absent: tenderness, meningismus, lymphadenopathy Respiratory exam: Present: normal lung sounds bilaterally. Absent: respiratory distress, wheezes, rales, rhonchi, stridor Cardiovascular Exam: Present: regular rate, normal rhythm, normal heart sounds. Absent: systolic murmur, diastolic murmur, rubs, gallop, clicks GI/Abdominal exam: Present: soft, normal bowel sounds. Absent: distended, tenderness, guarding, rebound, rigid Extremities exam: Present: normal inspection, full ROM, normal capillary refill. Absent: tenderness, pedal edema, joint swelling, calf tenderness Back exam: Present: normal inspection Neurological exam: Present: alert, oriented X3, CN II-XII intact Psychiatric exam: Present: normal affect, normal mood Skin exam: Present: warm, dry, intact, normal color. Absent: rash Course Vital Signs 05/20/22 05/20/22 01:04 03:41 Temperature 98.1 F Pulse Rate 69 74 Respiratory 16 15 Rate Blood Pressure 149/67 139/74 O2 Sat by Pulse 100 99 Oximetry - Reevaluation(s) Reevaluation #1: 05/20/22 medical record is reviewed patient symptoms improved here in the ER patient informed of results and questions answered Reevaluation #2: CT C-spine negative for acute disease Chest x-rays negative for acute disease Chest Pain MDM - MDM 87 female to the emergency department with chest pain and neck pain. Pain appears to be primarily in the neck with movement. Testing this checking a well-developed here in the ER, patient feels improved and can be discharged home Disposition Clinical Impression: Atypical chest pain, Chest pain Disposition: HOME SELF-CARE Condition: Stable Instructions (If sedation given, give patient instructions): Chest Pain (ED) Is patient prescribed a controlled substance at d/c from ED?: No Referrals: Cinda Lucero MD [Primary Care Provider] - 1-2 days Time of Disposition: 03:30
[2022-05-20] MEDS ORDERED: SODIUM CHLORIDE 0.9% 1,000 ML IV STA (01:54)
[2022-05-20] MEDS ORDERED: SODIUM CHLORIDE 0.9% 500 ML 500 ML IV STA (01:54)
[2022-05-20] MEDS ORDERED: MORPHINE SULFATE 4 MG/ML SYRINGE IV STA (01:54)
[2022-05-20 02:24] LABS: Anisocytosis Slight; Basophils % (A) 1 %; Eosinophils # (A) 0.1 k/uL (0-0.7); Eosinophils % (A) 1 %; HCT 34.4 % (34.0-46.0); HGB 10.5 gm/dL (11.4-16.0); Hypochromasia Marked; Lymphocytes # (A) 1.1 k/uL (1.0-4.8); Lymphocytes % (A) 17 %; MCH 21.6 pg (25.0-35.0); MCHC 30.6 g/dL (31.0-37.0); MCV 70.5 fL (80.0-100.0); Mean Platelet Volume 7.4; Microcytosis Moderate; Monocytes # (A) 0.5 k/uL (0-1.0); Monocytes % (A) 7 %; Neutrophils # (A) 4.8 k/uL (1.3-7.7); Neutrophils % (A) 73 %; Platelet Count 312 k/uL (150-450); Poikilocytosis Slight; RBC 4.87 m/uL (3.80-5.40); RDW 16.1 % (11.5-15.5); WBC 6.6 k/uL (3.8-10.6)
[2022-05-20 02:39] LABS: Albumin 3.9 g/dL (3.5-5.0); Calcium 8.8 mg/dL (8.4-10.2); Magnesium 2.1 mg/dL (1.6-2.3); Potassium 4.4 mmol/L (3.5-5.1); Total Bilirubin 0.4 mg/dL (0.2-1.3); Total Protein 6.8 g/dL (6.3-8.2)
--- NOTE | 2022-05-20 02:58 | XR ---
EXAMINATION TYPE: XR chest 1V portable DATE OF EXAM: 05/20/2022 COMPARISON: NONE HISTORY: Chest pain TECHNIQUE: FINDINGS: Heart is enlarged. No heart failure. Lungs are clear of infiltrate. There are chest leads. There are no hilar masses. Bony thorax is intact. IMPRESSION: No active cardiopulmonary disease. Mild cardiomegaly. No change.
[2022-05-20 03:00] LABS: INR 1.3 (<1.2); Partial Thromboplastin Time 33.5 sec (22.0-30.0); Prothrombin Time 13.7 sec (9.0-12.0)
--- NOTE | 2022-05-20 03:20 | CT ---
EXAMINATION TYPE: CT cervical spine wo con DATE OF EXAM: 05/20/2022 COMPARISON: None HISTORY: PAIN. NO KNOWN TRAUMATIC INJURY CT DLP: 209.1 mGycm Automated exposure control for dose reduction was used. Images obtained from the skull base to T1 vertebra with no contrast. There is moderate narrowing of the disc spaces at C5-6 and C6-7. There is spurring of the endplates. There is mild kyphotic curvature at the C4-5-6 level. There is multilevel hypertrophic mild facet art hropathy. No compression fracture. The skull base is intact. There is normal aeration of the mastoid sinuses. Occipital bone is intact. IMPRESSION: Moderate spondylotic changes mainly in the lower cervical spine slight kyphotic deformity. No fractur e seen.
[2022-05-20 03:41] VITALS: BP 139/74; PULSE 74; RESP 15
== END 2022-05-20 03:42 | disposition home or self-care (01) ==
LOC: EC 00:26
DX: R07.89 Other chest pain (principal); J45.909 Unspecified asthma, uncomplicated; I25.10 Atherosclerotic heart disease of native coronary artery without angina pectoris; Z86.73 Personal history of transient ischemic attack (TIA), and cerebral infarction without residual deficits; K21.9 Gastro-esophageal reflux disease without esophagitis; E78.5 Hyperlipidemia, unspecified; I11.0 Hypertensive heart disease with heart failure; I50.9 Heart failure, unspecified; I25.2 Old myocardial infarction; M19.90 Unspecified osteoarthritis, unspecified site; F41.9 Anxiety disorder, unspecified; F32.A Depression, unspecified; Z88.8 Allergy status to other drugs, medicaments and biological substances; Z88.1 Allergy status to other antibiotic agents; Z79.82 Long term (current) use of aspirin; Z79.899 Other long term (current) drug therapy
CPT/HCPCS: 36415; 83880; 80053; 83690; 83735; 84484; 85025; 85610; 85730; 71045; 72125; 99285; 96374; 96375; 96361; J2270

== ENCOUNTER 2022-05-23 08:56 | Day surgery (SDC) | payer MEDICARE, BC ==
[~2022-05-23 08:56] MED LIST: LACTATED RINGERS 1,000 ML IV SCH; SODIUM CHLORIDE 0.9% 1,000 ML IV SCH
[2022-05-23] MEDS ORDERED: SODIUM CHLORIDE 0.9% 500 ML 500 ML IV ONE (09:12)
[2022-05-23 09:43] VITALS: BP 198/91; PULSE 55; RESP 16; TEMP 98.1
[2022-05-23] MEDS ORDERED: amLODIPine 5 MG TAB ONE (10:30)
== END 2022-05-23 11:46 | disposition home or self-care (01) ==
LOC: CATHCVL 08:56
PROVIDERS: ATTEND Internal Medicine Interventional Cardiology
DX: I48.91 Unspecified atrial fibrillation (principal); I10 Essential (primary) hypertension; E78.5 Hyperlipidemia, unspecified; Z95.5 Presence of coronary angioplasty implant and graft; E78.00 Pure hypercholesterolemia, unspecified; Z79.01 Long term (current) use of anticoagulants; Z79.82 Long term (current) use of aspirin; Z79.899 Other long term (current) drug therapy; Z88.1 Allergy status to other antibiotic agents; Z53.9 Procedure and treatment not carried out, unspecified reason
CPT/HCPCS: 93005

== ENCOUNTER 2022-11-15 12:24 | Emergency (ER) | payer MEDICARE, BC ==
[2022-11-15 12:31] VITALS: TEMP 97.9
[2022-11-15] MEDS ORDERED: SODIUM CHLORIDE 0.9% 500 ML 500 ML IV STA (12:42)
[2022-11-15] MEDS ORDERED: METOCLOPRAMIDE 5 MG/ML 2 ML VIAL IVP STA (12:42)
[2022-11-15] MEDS ORDERED: MECLIZINE 12.5 MG TAB PO STA (12:49)
--- NOTE | 2022-11-15 12:50 | ED ---
General Adult HPI - General Chief complaint: Weakness Stated complaint: WEAKNESS Time Seen by Provider: 11/15/22 12:35 Source: patient Mode of arrival: wheelchair Limitations: no limitations - History of Present Illness Initial comments: Dictation was produced using Razz dictation software. please excuse any grammatical, word or spelling errors. Chief Complaint: 87-year-old female multiple comorbidities presents with dizziness and generalized weakness History of Present Illness: 87-year-old female she has multiple comorbidities she presents today for chief complaint of episodes of dizziness, generalized weakness and she also has runny nose and mild cough. Patient woke up this morning feeling in her usual state of health. She goes to [employer] daily. She went to [facility] this morning around 9 AM. While she was sitting she started to feel like the room was spinning. Patient has any history of vertigo. Patient symptoms lasted for approximately 10-15 minutes. She did felt fine enough and went to breakfast. She went home shortly after in felt like she had another attack of vertigo. She states that her vertigo is resolved however she feels like she might have another attack. Patient denies any numbness and paresthesi as to the arms or legs. Denies any pain complaints. Denies any vertigo currently at the bedside. The ROS documented in this emergency department record has been reviewed and confirmed by me. Those systems with pertinent positive or negative responses have been documented in the HPI. All other systems are other negative and/or noncontributory. PHYSICAL EXAM: General Impression: Alert and oriented x3, not in acute distress HEENT: Normocephalic atraumatic, extra-ocular movements intact, pupils equal and reactive to light bilaterally, mucous membranes moist. Cardiovascular: Heart regular rate and rhythm Chest: Able to complete full sentences, no retractions, no tachypnea Abdomen: abdomen soft, non-tender, non-distended, no organomegaly Musculoskeletal: Pulses present and equal in all extremities, no peripheral edema Motor: no focal deficits noted Neurological: CN II-XII grossly intact, no focal motor or sensory deficits noted, HINTS exam negative, no vertical or rotatory nystagmus Skin: Intact with no visualized rashes Psych: Normal affect and mood ED course: 87-year-old female presents to the emergency department for 2 episodes of vertigo. She denies vertiginous symptoms at the bedside. Neurologic exam is unremarkable. HINTS test negative. Vital Signs upon arrival are within acceptable limits. Nursing notes and chart review was performed My EKG interpretation: Ventricular rate 64, sinus rhythm,. 182, QRS 85, QTC 425. No DE prolongation, no QTC prolongation, no ST or T-wave changes noted. EKG compared to 05/23/2022 showing no changes. Overall, this EKG is unremarkable Was pt. sent in by a medical professional or institution (, DANY, MANUAL ARTS THERAPY TEACHER, urgent care, hospital, or long term...) When possible be specific @ -No Did you speak to anyone other than the patient for history (EMS, parent, family, police, friend...)? What history was obtained from this source @ -No Did you review nursing and triage notes (agree or disagree)? Why? @ -I reviewed and agree with nursing and triage notes Were old charts reviewed (outside hosp., previous admission, EMS record, old EKG, old radiological studies, urgent care reports/EKG's, long term records)? Report findings @ -No old charts were reviewed Differential Diagnosis (chest pain, altered mental status, abdominal pain women, abdominal pain men, vaginal bleeding, musculoskeletal, weakness, fever, dyspnea, syncope, headache, dizziness, GI bleed, back pain, seizure, CVA, palpatations, mental health)? @ -Differential Dizziness: Benign paroxysmal positional Vertigo, Menieres disease, otitis media, acoustic neuroma, vertebrobasilar insufficiency, cerebellar stroke, encephalitis, hypovolemic, arrhythmia, coronary artery syndrome, anemia, this is not meant to be an all-inclusive list EKG interpreted by me (3pts min.). @ -See above X-rays interpreted by me (1pt min.). @ -None done CT interpreted by me (1pt min.). @ -None done U/S interpreted by me (1pt. min.). @ -None done What testing was considered but not performed or refused? (CT, X-rays, U/S, labs)? Why? @ -None What meds were considered but not given or refused? Why? @ -None Did you discuss the management of the patient with other professionals (professionals i.e. , DANY, MANUAL ARTS THERAPY TEACHER, lab, RT, psych nurse, social services technician, film and video graphics designer, teacher, veterans service officer, trimming caser)? Give summary @ -No Was smoking cessation discussed for >3mins.? @ -No Was critical care preformed (if so, how long)? @ -No Were there social determinants of health that impacted care today? How? (Homelessness, low income, unemployed, alcoholism, drug addiction, transportation, low edu. Level, literacy, decrease access to med. care, [facility], rehab)? @ -No Was there de-escalation of care discussed even if they declined (Discuss DNR or withdrawal of care, Hospice)? DNR status @ -No What co-morbidities impacted this encounter? (DM, HTN, Smoking, COPD, CAD, Cancer, CVA, ARF, Chemo, Hep., AIDS, mental health diagnosis, sleep apnea, morbid obesity)? @ -None Was patient admitted / discharged? Hospital course, mention meds given and route, prescriptions, significant lab abnormalities, going to OR and other pertinent info. @ -87 Year-old female presents to the emergency Department with thoughts of vertigo. Denies any vertiginous symptoms at the bedside. She does report that she feels like she wants to become vertiginous again. She does have some features of upper respiratory infection. Vital signs stable upon arrival. Laboratory evaluation obtained. CBC, metabolic panel is unremarkable. For panel viral testing is negative for influenza, RSV and coronavirus. Patient g tatiana Guzman and Antivert. Observed in emergency department for 2 hours and 20 minutes. Patient reevaluated at 2:45 PM on been stable medical condition. She reports she feels significantly improved. Disposition options were discussed. She is agreeable with discharge. Patient has no high-risk features she has negative HINTS exam she is well-appearing and denies any active vertigo symptoms at the bedside. Return precautions discussed. Patient advised follow-up with Dr. elizabeth given prescription for Antivert. Undiagnosed new problem with uncertain prognosis? @ -No Drug Therapy requiring intensive monitoring for toxicity (Heparin, Nitro, Insulin, Cardizem)? @ -No Were any procedures done? @ -No Diagnosis/symptom? Acute, or Chronic, or Acute on Chronic? Uncomplicated (without systemic symptoms) or Complicated (systemic symptoms)? @ -1.Acute uncomplicated vertigo Side effects of treatment? @ -No Exacerbation, Progression, or Severe Exacerbation? @ -No Poses a threat to life or bodily function? How? (Chest pain, [place], [place], pneumonia, PE, COPD, DKA, ARF, appy, cholecystitis, CVA, Diverticulitis, Homicidal, Suicidal, threat to staff... and all critical care pts) @ -No - Related Data Home Medications Medication Instructions Recorded Confirmed Rivaroxaban [Xarelto] 20 mg PO W/SUPPER 01/22/21 11/15/22 Spironolactone [Aldactone] 12.5 mg PO DAILY 02/16/21 11/15/22 ALPRAZolam [Xanax] 0.25 mg PO DAILY PRN 05/20/22 11/15/22 Cetirizine HCl [Zyrtec] 10 mg PO DAILY 05/20/22 11/15/22 amLODIPine [Norvasc] 5 mg PO DAILY 05/23/22 11/15/22 Aspirin EC [Ecotrin Low Dose] 81 mg PO DAILY 11/15/22 11/15/22 Atorvastatin [Lipitor] 40 mg PO HS 11/15/22 11/15/22 Famotidine 40 mg PO DAILY 11/15/22 11/15/22 Furosemide [Lasix] 40 mg PO DAILY 11/15/22 11/15/22 Metoprolol Tartrate [Lopressor] 50 mg PO BID 11/15/22 11/15/22 Previous Rx's Medication Instructions Recorded Meclizine [Antivert] 25 mg PO TID PRN #15 tab 11/15/22 Allergies Allergy/AdvReac Type Severity Reaction Status Date / Time methylprednisolone Allergy Rash/Hives Verified 11/15/22 13:35 cephalexin [From Keflex] AdvReac Cramps Verified 11/15/22 13:35 Review of Systems ROS Statement: Those systems with pertinent positive or pertinent negative responses have been documented in the HPI. ROS Other: All systems not noted in ROS Statement are negative. Past Medical History Past Medical History: Asthma, Coronary Artery Disease (CAD), Heart Failure, CVA/TIA, Eye Disorder, GERD/Reflux, GI Bleed, Hyperlipidemia, Hypertension, Myocardial Infarction ([place]), Osteoarthritis (OA), Pneumonia, Skin Disorder Additional Past Medical History / Comment(s): 2016 possible TIA, murmur, bronchitis, neuropathy bilateral lower legs/feet, edema lower legs/feet, hematemesis/suspected upper GI bleed/anemia with blood transfusion, past gastric ulcer, UTIs, incomplete emptying of bladder, overactive bladder, diverticular disease, arthritis in spine and toes with pain, starting of bilateral cataracts. COVID 11/17- given antibodies Last Myocardial Infarction Date:: 04/2016 History of Any Multi-Drug Resistant Organisms: None Reported Past Surgical History: Heart Catheterization With Stent, Hysterectomy Additional Past Surgical History / Comment(s): Multiple cardiac stents, D&C, colonoscopy Past Anesthesia/Blood Transfusion Reactions: No Reported Reaction Date of Last Stent Placement:: 06/08/16 Past Psychological History: Anxiety, Depression Smoking Status: Never smoker Past Alcohol Use History: None Reported Past Drug Use History: None Reported - Past Family History Son(s) Family Medical History: Cancer Father Family Medical History: Cancer Additional Family Medical History / Comment(s): Father of colon cancer when he was "elderly" Mother Family Medical History: CVA/TIA Additional Family Medical History / Comment(s): Mother at 89yrs a year after a massive CVA that left her paralyzed. General Exam Limitations: no limitations Course Vital Signs 11/15/22 11/15/22 12:27 12:36 Temperature 97.9 F Pulse Rate 95 Pulse Rate [ 68 General Contractor ] Respiratory 20 Rate Blood Pressure 139/65 O2 Sat by Pulse 99 Oximetry Medical Decision Making - Lab Data Result diagrams: 11/15/22 12:49 11/15/22 12:49 Lab Results 11/15/22 11/15/22 11/15/22 Range/Units 12:49 12:49 12:49 WBC 5.6 (3.8-10.6) k/uL RBC 5.41 H (3.80-5.40) m/uL Hgb 12.0 (11.4-16.0) gm/dL Hct 37.4 (34.0-46.0) % MCV 69.1 L (80.0-100.0) fL MCH 22.2 L (25.0-35.0) pg MCHC 32.1 (31.0-37.0) g/dL RDW 16.6 H (11.5-15.5) % Plt Count 266 (150-450) k/uL MPV 7.8 Neutrophils % 72 % Lymphocytes % 20 % Monocytes % 6 % Eosinophils % 0 % Basophils % 0 % Neutrophils # 4.0 (1.3-7.7) k/uL Lymphocytes # 1.1 (1.0-4.8) k/uL Monocytes # 0.3 (0-1.0) k/uL Eosinophils # 0.0 (0-0.7) k/uL Basophils # 0.0 (0-0.2) k/uL Hypochromasia Slight Anisocytosis Slight Microcytosis Marked Sodium 136 L (137-145) mmol/L Potassium 4.2 (3.5-5.1) mmol/L Chloride 100 (98-107) mmol/L Carbon Dioxide 28 (22-30) mmol/L Anion Gap 8 mmol/L BUN 21 H (7-17) mg/dL Creatinine 1.10 H (0.52-1.04) mg/dL Est GFR (CKD-EPI)AfAm 52 (>60 ml/min/1.73 sqM) Est GFR (CKD-EPI)NonAf 45 (>60 ml/min/1.73 sqM) Glucose 113 H (74-99) mg/dL Calcium 9.0 (8.4-10.2) mg/dL Magnesium 2.3 (1.6-2.3) mg/dL Total Bilirubin 0.4 (0.2-1.3) mg/dL AST 28 (14-36) U/L ALT 19 (4-34) U/L Alkaline Phosphatase 105 (38-126) U/L Total Protein 7.5 (6.3-8.2) g/dL Albumin 4.1 (3.5-5.0) g/dL Influenza Type A (PCR) Not Detected (Not Detectd) Influenza Type B (PCR) Not Detected (Not Detectd) RSV (PCR) Not Detected (Not Detectd) SARS-CoV-2 (PCR) Not Detected (Not Detectd) Disposition Clinical Impression: Vertigo Disposition: HOME SELF-CARE Condition: Fair Instructions (If sedation given, give patient instructions): Vertigo (ED) Prescriptions: Meclizine [Antivert] 25 mg PO TID PRN #15 tab PRN Reason: dizziness Is patient prescribed a controlled substance at d/c from ED?: No Referrals: Cinda Lucero MD [Primary Care Provider] - 1-2 days Time of Disposition: 14:46
[2022-11-15 13:07] LABS: Anisocytosis Slight; Basophils % (A) 0 %; Eosinophils % (A) 0 %; HCT 37.4 % (34.0-46.0); Hypochromasia Slight; Lymphocytes # (A) 1.1 k/uL (1.0-4.8); Lymphocytes % (A) 20 %; MCH 22.2 pg (25.0-35.0); MCHC 32.1 g/dL (31.0-37.0); MCV 69.1 fL (80.0-100.0); Mean Platelet Volume 7.8; Microcytosis Marked; Monocytes # (A) 0.3 k/uL (0-1.0); Monocytes % (A) 6 %; Neutrophils % (A) 72 %; Platelet Count 266 k/uL (150-450); RBC 5.41 m/uL (3.80-5.40); RDW 16.6 % (11.5-15.5); WBC 5.6 k/uL (3.8-10.6)
[2022-11-15 13:17] LABS: Albumin 4.1 g/dL (3.5-5.0); Magnesium 2.3 mg/dL (1.6-2.3); Potassium 4.2 mmol/L (3.5-5.1); Total Bilirubin 0.4 mg/dL (0.2-1.3); Total Protein 7.5 g/dL (6.3-8.2)
[2022-11-15 14:48] VITALS: BP 137/61; PULSE 57; RESP 16
== END 2022-11-15 15:32 | disposition home or self-care (01) ==
LOC: EC 12:24
DX: R42 Dizziness and giddiness (principal); I11.0 Hypertensive heart disease with heart failure; I25.10 Atherosclerotic heart disease of native coronary artery without angina pectoris; I25.2 Old myocardial infarction; I50.9 Heart failure, unspecified; J45.909 Unspecified asthma, uncomplicated; K21.9 Gastro-esophageal reflux disease without esophagitis; M19.90 Unspecified osteoarthritis, unspecified site; F41.9 Anxiety disorder, unspecified; F32.A Depression, unspecified; E78.5 Hyperlipidemia, unspecified; Z79.82 Long term (current) use of aspirin; Z79.899 Other long term (current) drug therapy; Z86.16 Personal history of COVID-19; Z88.1 Allergy status to other antibiotic agents; Z20.822 Contact with and (suspected) exposure to COVID-19
CPT/HCPCS: 36415; 93005; 80053; 83735; 85025; 87636; 99285; 96374; J2765

== ENCOUNTER 2023-12-20 19:39 | Emergency (ER) | payer MEDICARE, BC ==
[2023-12-20 19:50] VITALS: TEMP 97.2
--- NOTE | 2023-12-20 20:02 | ED ---
General Adult HPI - General Chief complaint: Weakness Stated complaint: Weakness Time Seen by Provider: 12/20/23 19:49 Source: patient, EMS, RN notes reviewed, old records reviewed Mode of arrival: EMS Limitations: no limitations - History of Present Illness Initial comments: 88-year-old female presenting with an episode of unresponsiveness. Patient was at the medical center. She had been there for approximately 1 hour. According to bystanders she was momentarily unresponsive. There was no fall. She states that she was tired and does get this way in the afternoons. She has had several episodes similar to this although not as prolonged in the past. No chest pain but she reports an upper neck discomfort. No dyspnea. No vomiting. She had nausea. - Related Data Home Medications Medication Instructions Recorded Confirmed Rivaroxaban [Xarelto] 20 mg PO W/SUPPER 01/22/21 11/15/22 Spironolactone [Aldactone] 12.5 mg PO DAILY 02/16/21 11/15/22 ALPRAZolam [Xanax] 0.25 mg PO DAILY PRN 05/20/22 11/15/22 Cetirizine HCl [Zyrtec] 10 mg PO DAILY 05/20/22 11/15/22 amLODIPine [Norvasc] 5 mg PO DAILY 05/23/22 11/15/22 Aspirin EC [Ecotrin Low Dose] 81 mg PO DAILY 11/15/22 11/15/22 Atorvastatin [Lipitor] 40 mg PO HS 11/15/22 11/15/22 Famotidine 40 mg PO DAILY 11/15/22 11/15/22 Furosemide [Lasix] 40 mg PO DAILY 11/15/22 11/15/22 Metoprolol Tartrate [Lopressor] 50 mg PO BID 11/15/22 11/15/22 Previous Rx's Medication Instructions Recorded Meclizine [Antivert] 25 mg PO TID PRN #15 tab 11/15/22 Allergies Allergy/AdvReac Type Severity Reaction Status Date / Time methylprednisolone Allergy Rash/Hives Verified 11/15/22 13:35 cephalexin [From Keflex] AdvReac Cramps Verified 11/15/22 13:35 Review of Systems ROS Statement: Those systems with pertinent positive or pertinent negative responses have been documented in the HPI. ROS Other: All systems not noted in ROS Statement are negative. Past Medical History Past Medical History: Asthma, Coronary Artery Disease (CAD), Heart Failure, CVA/TIA, Eye Disorder, GERD/Reflux, GI Bleed, Hyperlipidemia, Hypertension, Myocardial Infarction (SD), Osteoarthritis (OA), Pneumonia, Skin Disorder Additional Past Medical History / Comment(s): 2015 possible TIA, murmur, bronchitis, neuropathy bilateral lower legs/feet, edema lower legs/feet, hematemesis/suspected upper GI bleed/anemia with blood transfusion, past gastric ulcer, UTIs, incomplete emptying of bladder, overactive bladder, diverticular disease, arthritis in spine and toes with pain, starting of bilateral cataracts. COVID 11/17- given antibodies Last Myocardial Infarction Date:: 04/2016 History of Any Multi-Drug Resistant Organisms: None Reported Past Surgical History: Heart Catheterization With Stent, Hysterectomy Additional Past Surgical History / Comment(s): Multiple cardiac stents, D&C, colonoscopy Past Anesthesia/Blood Transfusion Reactions: No Reported Reaction Date of Last Stent Placement:: 06/08/16 Past Psychological History: Anxiety, Depression Smoking Status: Never smoker Past Alcohol Use History: None Reported Past Drug Use History: None Reported - Past Family History Son(s) Family Medical History: Cancer Father Family Medical History: Cancer Additional Family Medical History / Comment(s): Father of colon cancer when he was "elderly" Mother Family Medical History: CVA/TIA Additional Family Medical History / Comment(s): Mother at 89yrs a year after a massive CVA that left her paralyzed. General Exam Limitations: no limitations General appearance: alert, in no apparent distress Head exam: Present: atraumatic, normocephalic Eye exam: Present: normal appearance, PERRL ENT exam: Present: mucous membranes dry Neck exam: Present: normal inspection. Absent: tenderness, meningismus Respiratory exam: Present: normal lung sounds bilaterally. Absent: respiratory distress, wheezes Cardiovascular Exam: Present: regular rate, normal rhythm GI/Abdominal exam: Present: soft. Absent: distended, tenderness, guarding Extremities exam: Present: normal inspection, normal capillary refill. Absent: pedal edema Neurological exam: Present: alert, oriented X3, CN II-XII intact. Absent: motor sensory deficit Psychiatric exam: Present: normal affect, normal mood Skin exam: Present: warm, dry, intact. Absent: cyanosis, diaphoretic Course Vital Signs 12/20/23 12/20/23 19:40 20:54 Temperature 97.2 F L Pulse Rate 97 68 Respiratory 16 18 Rate Blood Pressure 164/114 133/56 O2 Sat by Pulse 97 99 Oximetry Medical Decision Making - Medical Decision Making Was pt. sent in by a medical professional or institution (DANY Aaron, [facility], urgent care, hospital, or [facility]...) When possible be specific @ -No Did you speak to anyone other than the patient for history (EMS, parent, family, police, friend...)? What history was obtained from this source @ -No Did you review nursing and triage notes (agree or disagree)? Why? @ -I reviewed and agree with nursing and triage notes Were old charts reviewed (outside hosp., previous admission, EMS record, old EKG, old radiological studies, urgent care reports/EKG's, [facility] records)? Report findings @ -No old charts were reviewed Differential Syncope: Valvular disease, hypertrophic cardiomyopathy, pulmonary embolism, tamponade, tachycardia, bradycardia, SD, hypovolemia, hemorrhage, dissection, anemia, intracranial hemorrhage, seizure, hypoglycemia, carbon monoxide poisoning, this is not meant to be an all-inclusive list. EKG interpreted by me (3pts min.). @Artifact limiting assessment, atrial fibrillation with a rate of [address] segment elevation. QRS duration 81, QTc 417 X-rays interpreted by me (1pt min.). @ -[Chest x-ray negative for acute cardiopulmonary findings CT interpreted by me (1pt min.). @ -None done U/S interpreted by me (1pt. min.). @ -None done What testing was considered but not performed or refused? (CT, X-rays, U/S, labs)? Why? @ -None What meds were considered but not given or refused? Why? @ -None Did you discuss the management of the patient with other professionals (professionals i.e. DANY Aaron, [employer], lab, RT, psych nurse, social economist, money room teller, teacher, information security officer, keycase assembler)? Give summary @ -No Was smoking cessation discussed for >3mins.? @ -No Was critical care preformed (if so, how long)? @ -No Were there social determinants of health that impacted care today? How? ( Homelessness, low income, unemployed, alcoholism, drug addiction, transportation, low edu. Level, literacy, decrease access to med. care, skilled nursing, rehab)? @ -No Was there de-escalation of care discussed even if they declined (Discuss DNR or withdrawal of care, Hospice)? DNR status @ -No What co-morbidities impacted this encounter? (DM, HTN, Smoking, COPD, CAD, Cancer, CVA, ARF, Chemo, Hep., AIDS, mental health diagnosis, sleep apnea, morbid obesity)? @ -[CAD Was patient admitted / discharged? Hospital course, mention meds given and route, prescriptions, significant lab abnormalities, going to OR and other pertinent info. @ -88-year-old female with a moment of decreased responsiveness, possible near syncopal event. Patient without complaint of time my evaluation. She believes she just may have over done it today and that the [employer] service she was at was long. Patient has stable vitals. No chest pain. No fever. No vomiting. Chest x-ray is clear. She has stable baseline anemia, normal labs otherwise, negative urinalysis. I did reevaluate the patient she is feeling well without complaint and is eager for discharge. Undiagnosed new problem with uncertain prognosis? @ -No Drug Therapy requiring intensive monitoring for toxicity (Heparin, Nitro, Insulin, Cardizem)? @ -No Were any procedures done? @ -No Diagnosis/symptom? @ -[Near syncope Acute, or Chronic, or Acute on Chronic? @ -Acute Uncomplicated (without systemic symptoms) or Complicated (systemic symptoms)? @ -[default Side effects of treatment? @ -No Exacerbation, Progression, or Severe Exacerbation? @ -No Poses a threat to life or bodily function? How? (Chest pain, USA, SD, pneumonia, PE, COPD, DKA, ARF, appy, cholecystitis, CVA, Diverticulitis, Homicidal, Suicidal, threat to staff... and all critical care pts) @ -[Low risk at this time - Lab Data Result diagrams: 12/20/23 20:00 12/20/23 20:00 Lab Results 12/20/23 12/20/23 12/20/23 Range/Units 20:00 20:00 20:00 WBC 4.6 (3.8-10.6) k/uL RBC 4.94 (3.80-5.40) m/uL Hgb 10.8 L (11.4-16.0) gm/dL Hct 34.5 (34.0-46.0) % MCV 69.8 L (80.0-100.0) fL MCH 21.8 L (25.0-35.0) pg MCHC 31.2 (31.0-37.0) g/dL RDW 14.9 (11.5-15.5) % Plt Count 332 (150-450) k/uL MPV 7.6 Neutrophils % 51 % Lymphocytes % 34 % Monocytes % 10 % Eosinophils % 1 % Basophils % 1 % Neutrophils # 2.4 (1.3-7.7) k/uL Lymphocytes # 1.6 (1.0-4.8) k/uL Monocytes # 0.5 (0-1.0) k/uL Eosinophils # 0.0 (0-0.7) k/uL Basophils # 0.0 (0-0.2) k/uL Hypochromasia Moderate Poikilocytosis Slight Microcytosis Moderate PT 12.2 (10.0-12.5) sec INR 1.1 (<1.2) APTT 29.1 (22.0-30.0) sec Sodium 132 L (137-145) mmol/L Potassium 3.8 (3.5-5.1) mmol/L Chloride 100 (98-107) mmol/L Carbon Dioxide 22 (22-30) mmol/L Anion Gap 10 mmol/L BUN 24 H (7-17) mg/dL Creatinine 1.08 H (0.52-1.04) mg/dL Est GFR (CKD-EPI)AfAm 53 (>60 ml/min/1.73 sqM) Est GFR (CKD-EPI)NonAf 46 (>60 ml/min/1.73 sqM) Glucose 107 H (74-99) mg/dL Plasma Lactic Acid [place] (0.7-2.0) mmol/L Calcium 8.3 L (8.4-10.2) mg/dL Magnesium 2.0 (1.6-2.3) mg/dL Total Bilirubin 0.4 (0.2-1.3) mg/dL AST 29 (14-36) U/L ALT 16 (4-34) U/L Alkaline Phosphatase 115 (38-126) U/L Troponin I (0.000-0.034) ng/mL Total Protein 7.1 (6.3-8.2) g/dL Albumin 3.9 (3.5-5.0) g/dL Urine Color Urine Appearance (Clear) Urine pH (5.0-8.0) Ur Specific [place] (1.001-1.035) Urine Protein (Negative) Urine Glucose (UA) (Negative) Urine Ketones (Negative) Urine Blood (Negative) Urine Nitrite (Negative) Urine Bilirubin (Negative) Urine Urobilinogen (<2.0) mg/dL Ur Leukocyte Esterase (Negative) 12/20/23 12/20/23 12/20/23 Range/Units 20:00 20:00 20:52 WBC (3.8-10.6) k/uL RBC (3.80-5.40) m/uL Hgb (11.4-16.0) gm/dL Hct (34.0-46.0) % MCV (80.0-100.0) fL MCH (25.0-35.0) pg MCHC (31.0-37.0) g/dL RDW (11.5-15.5) % Plt Count (150-450) k/uL MPV Neutrophils % % Lymphocytes % % Monocytes % % Eosinophils % % Basophils % % Neutrophils # (1.3-7.7) k/uL Lymphocytes # (1.0-4.8) k/uL Monocytes # (0-1.0) k/uL Eosinophils # (0-0.7) k/uL Basophils # (0-0.2) k/uL Hypochromasia Poikilocytosis Microcytosis PT (10.0-12.5) sec INR (<1.2) APTT (22.0-30.0) sec Sodium (137-145) mmol/L Potassium (3.5-5.1) mmol/L Chloride (98-107) mmol/L Carbon Dioxide (22-30) mmol/L Anion Gap mmol/L BUN (7-17) mg/dL Creatinine (0.52-1.04) mg/dL Est GFR (CKD-EPI)AfAm (>60 ml/min/1.73 sqM) Est GFR (CKD-EPI)NonAf (>60 ml/min/1.73 sqM) Glucose (74-99) mg/dL Plasma Lactic Acid [place] 1.1 (0.7-2.0) mmol/L Calcium (8.4-10.2) mg/dL Magnesium (1.6-2.3) mg/dL Total Bilirubin (0.2-1.3) mg/dL AST (14-36) U/L ALT (4-34) U/L Alkaline Phosphatase (38-126) U/L Troponin I <0.012 (0.000-0.034) ng/mL Total Protein (6.3-8.2) g/dL Albumin (3.5-5.0) g/dL Urine Color Colorless Urine Appearance Clear (Clear) Urine pH 5.5 (5.0-8.0) Ur Specific [place] 1.009 (1.001-1.035) Urine Protein Negative (Negative) Urine Glucose (UA) Negative (Negative) Urine Ketones Negative (Negative) Urine Blood Negative (Negative) Urine Nitrite Negative (Negative) Urine Bilirubin Negative (Negative) Urine Urobilinogen <2.0 (<2.0) mg/dL Ur Leukocyte Esterase Negative (Negative) Disposition Clinical Impression: Near syncope Disposition: HOME SELF-CARE Condition: Fair Instructions (If sedation given, give patient instructions): Near Syncope (ED) Is patient prescribed a controlled substance at d/c from ED?: No Referrals: Cinda Lucero MD [Primary Care Provider] - 1-2 days Time of Disposition: 21:29
[2023-12-20] MEDS: SODIUM CHLORIDE 0.9% 500 ML 500 ML IV STA (20:07)
[2023-12-20 20:11] LABS: Basophils % (A) 1 %; Eosinophils % (A) 1 %; HCT 34.5 % (34.0-46.0); HGB 10.8 gm/dL (11.4-16.0); Hypochromasia Moderate; Lymphocytes # (A) 1.6 k/uL (1.0-4.8); Lymphocytes % (A) 34 %; MCH 21.8 pg (25.0-35.0); MCHC 31.2 g/dL (31.0-37.0); MCV 69.8 fL (80.0-100.0); Mean Platelet Volume 7.6; Microcytosis Moderate; Monocytes # (A) 0.5 k/uL (0-1.0); Monocytes % (A) 10 %; Neutrophils # (A) 2.4 k/uL (1.3-7.7); Neutrophils % (A) 51 %; Platelet Count 332 k/uL (150-450); Poikilocytosis Slight; RBC 4.94 m/uL (3.80-5.40); RDW 14.9 % (11.5-15.5); WBC 4.6 k/uL (3.8-10.6)
--- NOTE | 2023-12-20 20:19 | XR ---
EXAMINATION TYPE: XR chest 2V DATE OF EXAM: 12/20/2023 8:15 PM CLINICAL INDICATION:Female, 88 years old with history of Weakness; [facility] COMPARISON: Chest radiographs from 05/20/2022. TECHNIQUE: XR chest 2V Frontal and lateral views of the chest. FINDINGS: Lungs/Pleura: There is no evidence of pleural effusion, focal consolidation, or pneumothorax. Pulmonary vascularity: Unremarkable. Heart/mediastinum: Cardiomediastinal silhouette is unremarkable. Atherosclerotic calcifications are seen in the aorta. Musculoskeletal: No acute osseous pathology. IMPRESSION: No acute cardiopulmonary disease/process.
[2023-12-20 20:21] LABS: ALT 16 U/L (4-34); AST 29 U/L (14-36); African American GFR (CKD) 53 (>60 ml/min/1.73 sqM); Albumin 3.9 g/dL (3.5-5.0); Alkaline Phosphatase 115 U/L (38-126); Anion Gap 10 mmol/L; Blood Urea Nitrogen 24 mg/dL (7-17); Calcium 8.3 mg/dL (8.4-10.2); Carbon Dioxide 22 mmol/L (22-30); Chloride 100 mmol/L (98-107); Glucose 107 mg/dL (74-99); Non-African American GFR(CKD) 46 (>60 ml/min/1.73 sqM); Potassium 3.8 mmol/L (3.5-5.1); Sodium 132 mmol/L (137-145); Total Bilirubin 0.4 mg/dL (0.2-1.3); Total Protein 7.1 g/dL (6.3-8.2)
[2023-12-20 20:56] LABS: Appearance,Urine Clear (Clear); Bilirubin,Urine Negative (Negative); Blood,Urine Negative (Negative); Color,Urine Colorless; Glucose,Urine (UA) Negative (Negative); Ketones,Urine Negative (Negative); Leukocyte Esterase,Urine Negative (Negative); Nitrite,Urine Negative (Negative); PH, Urine 5.5 (5.0-8.0); Protein,Urine Negative (Negative); Specific Gravity,Urine 1.009 (1.001-1.035); Urobilinogen,Urine <2.0 mg/dL (<2.0)
[2023-12-20 21:17] VITALS: BP 133/56; PULSE 68; RESP 18
[2023-12-20 21:20] LABS: INR 1.1 (<1.2); Partial Thromboplastin Time 29.1 sec (22.0-30.0); Prothrombin Time 12.2 sec (10.0-12.5)
== END 2023-12-20 21:48 | disposition home or self-care (01) ==
LOC: EC 19:39
DX: R55 Syncope and collapse (principal); I48.91 Unspecified atrial fibrillation; Z88.1 Allergy status to other antibiotic agents; Z88.8 Allergy status to other drugs, medicaments and biological substances
CPT/HCPCS: 36415; 71046; 80053; 81003; 83605; 83735; 84484; 85025; 85610; 85730; 93005; 99285

== ENCOUNTER → 2024-01-04 | Outpatient (CLI) | payer MEDICARE, BC ==
[2024-01-04 11:59] LABS: African American GFR (CKD) 72 (>60 ml/min/1.73 sqM); Blood Urea Nitrogen 17 mg/dL (7-17); Non-African American GFR(CKD) 62 (>60 ml/min/1.73 sqM)
--- NOTE | 2024-01-04 13:06 | CT ---
EXAMINATION TYPE: CT chest abdomen w con DATE OF EXAM: 01/04/2024 COMPARISON: 09/05/2017 HISTORY: Pt cough, iron deficiency anemia, pt states generally not feeling good. Dr behzad did not or lori pelvis, said to do as ordered. CT DLP: 413.20 mGycm CONTRAST: CT scan of the chest, abdomen is performed with Oral Contrast and with IV Contrast, patient injected with 100 mL of Isovue 300. CT Chest: LUNGS: The lungs are clear and free of infiltrate or atelectasis. No pulmonary nodule or mass is det ected. No pleural effusion or CT evidence of interstitial lung disease. MEDIASTINUM: Thoracic aorta is of normal caliber. The heart is not enlarged. No evidence for media stinal mass or adenopathy. HILAR STRUCTURES: No evidence for mass. No hilar adenopathy is appreciated. OTHER: No significant abnormality. CONTRAST CT ABDOMEN AND PELVIS FINDINGS: LIVER/GB: No calcified gallstones. No space occupying hepatic lesion. Biliary tree is of normal ca liber. PANCREAS: No inflammation. No distinct mass. SPLEEN: No splenic enlargement. No lesion seen. ADRENALS: No nodule. No thickening. KIDNEYS/BLADDER: No hydronephrosis. No nephrolithiasis. No distinct renal mass. BOWEL: Visualized bowel loops are of normal caliber. LYMPH NODES: No greater than 1cm abdominal or pelvic lymph nodes are appreciated. AORTA: No significant abnormality. OSSEOUS STRUCTURES: No significant abnormality is seen. OTHER: No significant additional abnormality is seen. IMPRESSION: 1. No discrete abnormality seen.
== END | disposition home or self-care (01) ==
LOC: RADCTMAIN 11:02
PROVIDERS: ATTEND Internal Medicine
DX: D50.0 Iron deficiency anemia secondary to blood loss (chronic) (principal)
CPT/HCPCS: 82565; 84520; 71260; 74160; 36415; Q9967

== ENCOUNTER 2024-04-29 06:55 | Emergency (ER) | payer MEDICARE, BC ==
[2024-04-29 06:59] VITALS: TEMP 97.7
[2024-04-29 08:20] VITALS: RESP 18
[2024-04-29 08:22] LABS: Anisocytosis Slight; Basophils % (A) 0 %; Eosinophils % (A) 1 %; HCT 30.8 % (34.0-46.0); HGB 9.6 gm/dL (11.4-16.0); Hypochromasia Marked; Lymphocytes # (A) 0.8 k/uL (1.0-4.8); Lymphocytes % (A) 17 %; MCH 20.7 pg (25.0-35.0); MCHC 31.2 g/dL (31.0-37.0); MCV 66.2 fL (80.0-100.0); Mean Platelet Volume 7.4; Microcytosis Marked; Monocytes # (A) 0.3 k/uL (0-1.0); Monocytes % (A) 7 %; Neutrophils # (A) 3.3 k/uL (1.3-7.7); Neutrophils % (A) 74 %; Platelet Count 293 k/uL (150-450); Poikilocytosis Slight; RBC 4.65 m/uL (3.80-5.40); RDW 18.9 % (11.5-15.5); WBC 4.5 k/uL (3.8-10.6)
[2024-04-29 08:30] LABS: INR 1.3 (<1.2); Prothrombin Time 13.9 sec (10.0-12.5)
[2024-04-29 08:31] LABS: Partial Thromboplastin Time 31.4 sec (22.0-30.0)
[2024-04-29 08:41] LABS: ALT 12 U/L (4-34); AST 25 U/L (14-36); African American GFR (CKD) 73 (>60 ml/min/1.73 sqM); Albumin 3.4 g/dL (3.5-5.0); Alkaline Phosphatase 82 U/L (38-126); Anion Gap 6 mmol/L; Blood Urea Nitrogen 18 mg/dL (7-17); Calcium 8.5 mg/dL (8.4-10.2); Carbon Dioxide 25 mmol/L (22-30); Chloride 105 mmol/L (98-107); Glucose 98 mg/dL (74-99); Non-African American GFR(CKD) 64 (>60 ml/min/1.73 sqM); Potassium 4.2 mmol/L (3.5-5.1); Sodium 136 mmol/L (137-145); Total Bilirubin 0.5 mg/dL (0.2-1.3); Total Protein 6.4 g/dL (6.3-8.2)
[2024-04-29 08:50] LABS: NT-Pro-B-Type Natriuretic Pept 2020 pg/mL
--- NOTE | 2024-04-29 09:02 | XR ---
EXAMINATION TYPE: XR chest 2V DATE OF EXAM: 04/29/2024 COMPARISON: 12/20/2023 HISTORY: 89-year-old female shortness of breath, difficulty breathing TECHNIQUE: AP and lateral views FINDINGS: Heart mildly enlarged. Mild atherosclerotic arch calcifications. Pulmonary vasculature within normal limits. No consolidation or pleural effusion. Coronary artery stent. IMPRESSION: Mild cardiomegaly. No acute process seen.
--- NOTE | 2024-04-29 09:12 | ED ---
SOB HPI - General Chief Complaint: Shortness of Breath Stated Complaint: Difficulty Breathing Time Seen by Provider: 04/29/24 07:13 Source: patient Mode of arrival: ambulatory Limitations: no limitations - History of Present Illness Initial Comments: 89-year-old female who presents emergency department reporting shortness of breath. Patient has a history of CHF, CVA, htn. Concern for having a "asthma attack". States that she has been having a cough for the past 6 months. It is nonproductive. States it is worse when she eats. She denies any associated fevers. No chest pain. Does feel short of breath when she is having the attacks. She has not spoken to her primary care doctor about this. Denies history of aspiration as she did have a barium swallow approximately 10 years ago and this was negative. She does admit to a history of reflux. Patient has CHF. Admits to mild lower extremity swelling. She has been taking her Lasix as directed without any missed doses. No other alleviating, precipitating or modifying factors - Related Data Home Medications Medication Instructions Recorded Confirmed Rivaroxaban [Xarelto] 20 mg PO W/SUPPER 01/22/21 11/15/22 Spironolactone [Aldactone] 12.5 mg PO DAILY 02/16/21 11/15/22 ALPRAZolam [Xanax] 0.25 mg PO DAILY PRN 05/20/22 11/15/22 Cetirizine HCl [Zyrtec] 10 mg PO DAILY 05/20/22 11/15/22 amLODIPine [Norvasc] 5 mg PO DAILY 05/23/22 11/15/22 Aspirin EC [Ecotrin Low Dose] 81 mg PO DAILY 11/15/22 11/15/22 Atorvastatin [Lipitor] 40 mg PO HS 11/15/22 11/15/22 Famotidine 40 mg PO DAILY 11/15/22 11/15/22 Furosemide [Lasix] 40 mg PO DAILY 11/15/22 11/15/22 Metoprolol Tartrate [Lopressor] 50 mg PO BID 11/15/22 11/15/22 Previous Rx's Medication Instructions Recorded Meclizine [Antivert] 25 mg PO TID PRN #15 tab 11/15/22 Ferrous Sulfate [Iron] 325 mg PO DAILY #30 tablet 04/29/24 Sennosides/Docusate Sodium 1 each PO DAILY PRN #30 tablet 04/29/24 [Senna-S 8.6-50 mg Tablet] Allergies Allergy/AdvReac Type Severity Reaction Status Date / Time methylprednisolone Allergy Rash/Hives Verified 05/11/24 13:14 cephalexin [From Keflex] AdvReac Cramps Verified 05/11/24 13:14 Review of Systems ROS Statement: Those systems with pertinent positive or pertinent negative responses have been documented in the HPI. ROS Other: All systems not noted in ROS Statement are negative. Past Medical History Past Medical History: Asthma, Coronary Artery Disease (CAD), Heart Failure, CVA/TIA, Eye Disorder, GERD/Reflux, GI Bleed, Hyperlipidemia, Hypertension, Myocardial Infarction ([place]), Osteoarthritis (OA), Pneumonia, Skin Disorder Additional Past Medical History / Comment(s): 2015 possible TIA, murmur, bronchitis, neuropathy bilateral lower legs/feet, edema lower legs/feet, hematemesis/suspected upper GI bleed/anemia with blood transfusion, past gastric ulcer, UTIs, incomplete emptying of bladder, overactive bladder, diverticular disease, arthritis in spine and toes with pain, starting of bilateral cataracts. COVID 11/17- given antibodies Last Myocardial Infarction Date:: 04/2016 History of Any Multi-Drug Resistant Organisms: None Reported Past Surgical History: Heart Catheterization With Stent, Hysterectomy Additional Past Surgical History / Comment(s): Multiple cardiac stents, D&C, colonoscopy Past Anesthesia/Blood Transfusion Reactions: No Reported Reaction Date of Last Stent Placement:: 06/08/16 Past Psychological History: Anxiety, Depression Smoking Status: Never smoker Past Alcohol Use History: None Reported Past Drug Use History: None Reported - Past Family History Son(s) Family Medical History: Cancer Father Family Medical History: Cancer Additional Family Medical History / Comment(s): Father of colon cancer when he was "elderly" Mother Family Medical History: CVA/TIA Additional Family Medical History / Comment(s): Mother at 89yrs a year after a massive CVA that left her paralyzed. General Exam Limitations: no limitations General appearance: alert, in no apparent distress Head exam: Present: atraumatic, normocephalic, normal inspection Eye exam: Present: normal appearance, PERRL, EOMI. Absent: scleral icterus, conjunctival injection, periorbital swelling ENT exam: Present: normal exam, mucous membranes moist Neck exam: Present: normal inspection. Absent: tenderness, meningismus, l ymphadenopathy Respiratory exam: Present: normal lung sounds bilaterally. Absent: respiratory distress, wheezes, rales, rhonchi, stridor Cardiovascular Exam: Present: regular rate, tachycardia, irregular rhythm, normal heart sounds. Absent: systolic murmur, diastolic murmur, rubs, gallop, clicks GI/Abdominal exam: Present: soft, normal bowel sounds. Absent: distended, tenderness, guarding, rebound, rigid Extremities exam: Present: normal inspection, full ROM, normal capillary refill. Absent: tenderness, pedal edema, joint swelling, calf tenderness Back exam: Present: normal inspection Neurological exam: Present: alert, oriented X3, CN II-XII intact Psychiatric exam: Present: normal affect, normal mood Skin exam: Present: warm, dry, intact, normal color. Absent: rash Course Vital Signs 04/29/24 04/29/24 04/29/24 06:55 07:10 08:19 Temperature 97.7 F Pulse Rate 117 H 85 Respiratory 20 16 18 Rate Blood Pressure 157/81 115/76 O2 Sat by Pulse 100 99 Oximetry 04/29/24 10:00 Temperature Pulse Rate 88 Respiratory 18 Rate Blood Pressure 116/78 O2 Sat by Pulse 98 Oximetry Medical Decision Making - Medical Decision Making Was pt. sent in by a medical professional or institution (, PA, [employer], urgent care, hospital, or [facility]...) When possible be specific @ -No Did you speak to anyone other than the patient for history (EMS, parent, family, police, friend...)? What history was obtained from this source @ -Spoke with daughter for history Did you review nursing and triage notes (agree or disagree)? Why? @ -I reviewed and agree with nursing and triage notes Were old charts reviewed (outside hosp., previous admission, EMS record, old EKG, old radiological studies, urgent care reports/EKG's, [facility] records)? Report findings @ -No old charts were reviewed Differential Diagnosis (chest pain, altered mental status, abdominal pain women, abdominal pain men, vaginal bleeding, weakness, fever, dyspnea, syncope, hea dache, dizziness, GI bleed, back pain, seizure, CVA, palpatations, mental health, musculoskeletal)? @ -Differential Dyspnea: Coronary syndrome, arrhythmia, tamponade, asthma, COPD, pulmonary embolism, pneumonia, pneumothorax, pulmonary effusion, anaphylaxis, diabetic ketoacidosis, flailed chest, pulmonary contusion, diaphragmatic rupture, anemia, neuromuscular, this is not meant to be an all-inclusive list. EKG interpreted by me (3pts min.). @ -Yes and demonstrates A-fib with a rate of 91. QRS 92. QTc of 449. No acute ST segment elevations or depressions X-rays interpreted by me (1pt min.). @ -Yes and demonstrates no acute process CT interpreted by me (1pt min.). @ -None done U/S interpreted by me (1pt. min.). @ -None done What testing was considered but not performed or refused? (CT, X-rays, U/S, labs)? Why? @ -None What meds were considered but not given or refused? Why? @ -None Did you discuss the management of the patient with other professionals (professionals i.e. , PA, [employer], lab, RT, psych nurse, social sciences research scientist, supervisor of guidance and testing, teacher, technology officer, case aide)? Give summary @ -Spoke with Dr. Lucero who states he will follow-up with the patient in office Was smoking cessation discussed for >3mins.? @ -No Was critical care preformed (if so, how long)? @ -No Were there social determinants of health that impacted care today? How? (Homelessness, low income, unemployed, alcoholism, drug addiction, transportation, low edu. Level, literacy, decrease access to med. care, group home, rehab)? @ -No Was there de-escalation of care discussed even if they declined (Discuss DNR or withdrawal of care, Hospice)? DNR status @ -No What co-morbidities impacted this encounter? (DM, HTN, Smoking, COPD, CAD, Cancer, CVA, ARF, Chemo, Hep., AIDS, mental health diagnosis, sleep apnea, morbid obesity)? @ -CHF, asthma Was patient admitted / discharged? Hospital course, mention meds given and route, prescriptions, significant lab abnormalities, going to OR and other pertinent info. @ -Upon arrival patient seen and evaluated in room 16. Thorough history and physical exam performed. Continuous pulse ox and cardiac monitoring. Twelve- lead EKG is obtained. Laboratory studies are conducted. Patient remains without any signs of respiratory distress. Spoke with Dr. lucero. He will follow-up with patient in office. Patient is slightly anemic. She states that she does have history of iron deficiency and is requesting to go back on iron supplements. I did prescribe her a stool softener with this. She is to call to make an appointment within the next 1 to 2 days. Return for any new or worsening symptoms. Patient discharged in stable condition Undiagnosed new problem with uncertain prognosis? @ -No Drug Therapy requiring intensive monitoring for toxicity (Heparin, Nitro, Insulin, Cardizem)? @ -No Were any procedures done? @ -No Diagnosis/symptom? @ -Acute respiratory insufficiency, chronic anemia Acute, or Chronic, or Acute on Chronic? @ -Acute Uncomplicated (without systemic symptoms) or Complicated (systemic symptoms)? @ -Complicated Side effects of treatment? @ -Constipation Exacerbation, Progression, or Severe Exacerbation? @ -No Poses a threat to life or bodily function? How? (Chest pain, [place], [place], pneumonia, PE, COPD, DKA, ARF, appy, cholecystitis, CVA, Diverticulitis, Homicidal, Suicidal, threat to staff... and all critical care pts) @ -No - Lab Data Result diagrams: 04/29/24 08:04 04/29/24 08:04 Lab Results 04/29/24 04/29/24 04/29/24 Range/Units 08:04 08:04 08:04 WBC 4.5 (3.8-10.6) k/uL RBC 4.65 (3.80-5.40) m/uL Hgb 9.6 L (11.4-16.0) gm/dL Hct 30.8 L (34.0-46.0) % MCV 66.2 L (80.0-100.0) fL MCH 20.7 L (25.0-35.0) pg MCHC 31.2 (31.0-37.0) g/dL RDW 18.9 H (11.5-15.5) % Plt Count 293 (150-450) k/uL MPV 7.4 Neutrophils % 74 % Lymphocytes % 17 % Monocytes % 7 % Eosinophils % 1 % Basophils % 0 % Neutrophils # 3.3 (1.3-7.7) k/uL Lymphocytes # 0.8 L (1.0-4.8) k/uL Monocytes # 0.3 (0-1.0) k/uL Eosinophils # 0.0 (0-0.7) k/uL Basophils # 0.0 (0-0.2) k/uL Hypochromasia Marked Poikilocytosis Slight Anisocytosis Slight Microcytosis Marked PT 13.9 H (10.0-12.5) sec INR 1.3 H (<1.2) APTT 31.4 H (22.0-30.0) sec Sodium 136 L (137-145) mmol/L Potassium 4.2 (3.5-5.1) mmol/L Chloride 105 (98-107) mmol/L Carbon Dioxide 25 (22-30) mmol/L Anion Gap 6 mmol/L BUN 18 H (7-17) mg/dL Creatinine 0.82 (0.52-1.04) mg/dL Est GFR (CKD-EPI)AfAm 73 (>60 ml/min/1.73 sqM) Est GFR (CKD-EPI)NonAf 64 (>60 ml/min/1.73 sqM) Glucose 98 (74-99) mg/dL Plasma Lactic Acid Davis (0.7-2.0) mmol/L Calcium 8.5 (8.4-10.2) mg/dL Total Bilirubin 0.5 (0.2-1.3) mg/dL AST 25 (14-36) U/L ALT 12 (4-34) U/L Alkaline Phosphatase 82 (38-126) U/L Troponin I (0.000-0.034) ng/mL NT-Pro-B Natriuret Pep 2020 pg/mL Total Protein 6.4 (6.3-8.2) g/dL Albumin 3.4 L (3.5-5.0) g/dL 04/29/24 04/29/24 Range/Units 08:04 08:04 WBC (3.8-10.6) k/uL RBC (3.80-5.40) m/uL Hgb (11.4-16.0) gm/dL Hct (34.0-46.0) % MCV (80.0-100.0) fL MCH (25.0-35.0) pg MCHC (31.0-37.0) g/dL RDW (11.5-15.5) % Plt Count (150-450) k/uL MPV Neutrophils % % Lymphocytes % % Monocytes % % Eosinophils % % Basophils % % Neutrophils # (1.3-7.7) k/uL Lymphocytes # (1.0-4.8) k/uL Monocytes # (0-1.0) k/uL Eosinophils # (0-0.7) k/uL Basophils # (0-0.2) k/uL Hypochromasia Poikilocytosis Anisocytosis Microcytosis PT (10.0-12.5) sec INR (<1.2) APTT (22.0-30.0) sec Sodium (137-145) mmol/L Potassium (3.5-5.1) mmol/L Chloride (98-107) mmol/L Carbon Dioxide (22-30) mmol/L Anion Gap mmol/L BUN (7-17) mg/dL Creatinine (0.52-1.04) mg/dL Est GFR (CKD-EPI)AfAm (>60 ml/min/1.73 sqM) Est GFR (CKD-EPI)NonAf (>60 ml/min/1.73 sqM) Glucose (74-99) mg/dL Plasma Lactic Acid Davis 0.9 (0.7-2.0) mmol/L Calcium (8.4-10.2) mg/dL Total Bilirubin (0.2-1.3) mg/dL AST (14-36) U/L ALT (4-34) U/L Alkaline Phosphatase (38-126) U/L Troponin I <0.012 (0.000-0.034) ng/mL NT-Pro-B Natriuret Pep pg/mL Total Protein (6.3-8.2) g/dL Albumin (3.5-5.0) g/dL Disposition Clinical Impression: Dyspnea, Anemia Disposition: HOME SELF-CARE Condition: Stable Instructions (If sedation given, give patient instructions): Dyspnea (ED) Additional Instructions: Please follow-up with Dr. Lucero for further management of your symptoms. I recommend a barium swallow. Return for any new or worsening symptoms Prescriptions: Ferrous Sulfate [Iron] 325 mg PO DAILY #30 tablet Sennosides/Docusate Sodium [Senna-S 8.6-50 mg Tablet] 1 each PO DAILY PRN #30 tablet PRN Reason: Constipation Is patient prescribed a controlled substance at d/c from ED?: No Referrals: Cinda Lucero MD [Primary Care Provider] - 1-2 days Time of Disposition: 09:19
[2024-04-29 10:33] VITALS: BP 116/78; PULSE 88
== END 2024-04-29 10:33 | disposition home or self-care (01) ==
LOC: EC 06:55
CPT/HCPCS: 36415; 71046; 80053; 83605; 83880; 84484; 85025; 85610; 85730; 93005; 99285

== ENCOUNTER 2024-05-11 13:10 | Emergency (ER) | payer MEDICARE, BC ==
[2024-05-11 13:14] VITALS: TEMP 99.2
--- NOTE | 2024-05-11 13:26 | ED ---
Allergic Reaction HPI - General Chief complaint: Allergic Reaction Stated complaint: allergic reaction Time Seen by Provider: 05/11/24 13:16 Source: patient, RN notes reviewed Mode of arrival: ambulatory Limitations: no limitations - History of Present Illness Initial Comments: This is an 89-year-old female who presents to the emergency department for an allergic reaction. Patient was in the hospital earlier this month and at that time had telemetry stickers left on her abdomen after she left. States that this caused an allergic reaction on her skin. She saw her primary care provider yesterday and was given a prescription for tacrolimus ointment. After applying this, states that she had an allergic reaction to that cream as well. She has since had substantial itching on both sides of her abdomen and feels like she cannot breathe. MD Complaint: allergic reaction - Related Data Home Medications Medication Instructions Recorded Confirmed Rivaroxaban [Xarelto] 20 mg PO W/SUPPER 01/22/21 11/15/22 Spironolactone [Aldactone] 12.5 mg PO DAILY 02/16/21 11/15/22 ALPRAZolam [Xanax] 0.25 mg PO DAILY PRN 05/20/22 11/15/22 Cetirizine HCl [Zyrtec] 10 mg PO DAILY 05/20/22 11/15/22 amLODIPine [Norvasc] 5 mg PO DAILY 05/23/22 11/15/22 Aspirin EC [Ecotrin Low Dose] 81 mg PO DAILY 11/15/22 11/15/22 Atorvastatin [Lipitor] 40 mg PO HS 11/15/22 11/15/22 Famotidine 40 mg PO DAILY 11/15/22 11/15/22 Furosemide [Lasix] 40 mg PO DAILY 11/15/22 11/15/22 Metoprolol Tartrate [Lopressor] 50 mg PO BID 11/15/22 11/15/22 Previous Rx's Medication Instructions Recorded Meclizine [Antivert] 25 mg PO TID PRN #15 tab 11/15/22 Ferrous Sulfate [Iron] 325 mg PO DAILY #30 tablet 04/29/24 Sennosides/Docusate Sodium 1 each PO DAILY PRN #30 tablet 04/29/24 [Senna-S 8.6-50 mg Tablet] Allergies Allergy/AdvReac Type Severity Reaction Status Date / Time methylprednisolone Allergy Rash/Hives Verified 05/11/24 13:14 cephalexin [From Keflex] AdvReac Cramps Verified 05/11/24 13:14 Review of Systems ROS Statement: Those systems with pertinent positive or pertinent negative responses have been documented in the HPI. ROS Other: All systems not noted in ROS Statement are negative. Past Medical History Past Medical History: Asthma, Coronary Artery Disease (CAD), Heart Failure, CVA/TIA, Eye Disorder, GERD/Reflux, GI Bleed, Hyperlipidemia, Hypertension, Myocardial Infarction ([place]), Osteoarthritis (OA), Pneumonia, Skin Disorder Additional Past Medical History / Comment(s): 2015 possible TIA, murmur, bronchitis, neuropathy bilateral lower legs/feet, edema lower legs/feet, hematemesis/suspected upper GI bleed/anemia with blood transfusion, past gastric ulcer, UTIs, incomplete emptying of bladder, overactive bladder, diverticular disease, arthritis in spine and toes with pain, starting of bilateral cataracts. COVID 11/17- given antibodies Last Myocardial Infarction Date:: 04/2016 History of Any Multi-Drug Resistant Organisms: None Reported Past Surgical History: Heart Catheterization With Stent, Hysterectomy Additional Past Surgical History / Comment(s): Multiple cardiac stents, D&C, colonoscopy Past Anesthesia/Blood Transfusion Reactions: No Reported Reaction Date of Last Stent Placement:: 06/08/16 Past Psychological History: Anxiety, Depression Smoking Status: Never smoker Past Alcohol Use History: None Reported Past Drug Use History: None Reported - Past Family History Son(s) Family Medical History: Cancer Father Family Medical History: Cancer Additional Family Medical History / Comment(s): Father of colon cancer when he was "elderly" Mother Family Medical History: CVA/TIA Additional Family Medical History / Comment(s): Mother at 89yrs a year after a massive CVA that left her paralyzed. General Exam Limitations: no limitations General appearance: alert, in no apparent distress Head exam: Present: atraumatic, normocephalic, normal inspection Respiratory exam: Present: normal lung sounds bilaterally. Absent: respiratory distress, wheezes, rales, rhonchi, stridor Cardiovascular Exam: Present: regular rate, normal rhythm, normal heart sounds. Absent: systolic murmur, diastolic murmur, rubs, gallop, clicks GI/Abdominal exam: Present: other (Erythema and scaling to both sides of her abdomen) Neurological exam: Present: alert, oriented X3, CN II-XII intact Psychiatric exam: Present: normal affect, normal mood Course Vital Signs 05/11/24 05/11/24 13:11 16:33 Temperature 99.2 F Pulse Rate 109 H 64 Respiratory 20 18 Rate Blood Pressure 145/77 119/74 O2 Sat by Pulse 97 100 Oximetry Medical Decision Making - Medical Decision Making This is an 89-year-old female who presents emergency department for a rash on her abdomen and concerns of an allergic reaction. Was pt. sent in by a medical professional or institution? @ -No Did you speak to anyone other than the patient for history? @ -No Did you review nursing and triage notes? @ -Yes, and I agree, it is accurate with regards to the patient's symptoms. Were old charts reviewed? @ -No Differential Diagnosis? @ -Differential Rash: [place], measles, Lyme disease, erythema multiforme, cellulitis, toxic shock syndrome, Son Omar syndrome, Kawasaki disease, [place] spotted feve r, contact dermatitis, allergic dermatitis, measles, mumps, rubella, varicella, meningococcal disease, drug reaction, coxsackievirus, This is not meant to be an all-inclusive list. EKG interpreted by me (3pts min.)? @ -Not obtained X-rays interpreted by me (1pt min.)? @ -Not obtained CT interpreted by me (1pt min.)? @ -Not obtained U/S interpreted by me (1pt. min.)? @ -Not obtained What testing was considered but not performed? (CT, X-rays, U/S, labs)? Why? @ -None What meds were considered but not given? Why? @ -None Did you discuss the management of the patient with other professionals? @ -No Did you reconcile home meds? @ -No Was smoking cessation discussed for >3mins.? @ -No Was critical care preformed (if so, how long)? @ -No Were there social determinants of health that impacted care today? How? (Homelessness, low income, unemployed, alcoholism, drug addiction, transportation, low edu. Level, literacy, decrease access to med. care, prison, rehab)? @ -No Was there de-escalation of care discussed even if they declined? (Discuss DNR or withdrawal of care, Hospice)? @ -No What co-morbidities impacted this encounter? (DM, HTN, Smoking, COPD, CAD, Cancer, CVA, Hep., AIDS, mental health diagnosis, sleep apnea, morbid obesity)? @ -None Was patient admitted / discharged? @ -Discharged. Physical examination consistent with a contact dermatitis. She is allergic to steroids. She was given Benadryl and famotidine in the emergency department. We tried topical calamine lotion, however this made it worse. We then switched to topical Benadryl cream and she found this much more effective. Patient discharged home with the Benadryl cream to continue using 3-4 times daily. Advised continuing with [id number] antihistamines and famotidine as well and following up with her primary care provider. Patient discharged home in stable condition. Case discussed with ED attending Dr. Lee. Return precautions reviewed in depth, the patient is instructed to return to the emergency department with any new, worsening, or concerning symptoms. Patient verbalized understanding. Undiagnosed new problem with uncertain prognosis? @ -None Drug Therapy requiring intensive monitoring for toxicity (Heparin, Nitro, Insulin, Cardizem)? @ -None Were any procedures done? @ -None Diagnosis/symptom? @ -Allergic contact dermatitis Acute, or Chronic, or Acute on Chronic? @ -Acute Uncomplicated (without systemic symptoms) or Complicated (systemic symptoms)? @ -Uncomplicated Side effects of treatment? @ -None Exacerbation, Progression, or Severe Exacerbation] @ -Not applicable Poses a threat to life or bodily function? @ -No Disposition Clinical Impression: Allergic reaction, Contact dermatitis Disposition: HOME SELF-CARE Instructions (If sedation given, give patient instructions): Urticaria (ED) Additional Instructions: Return to the emergency department with any new, worsening, or concerning symptoms. Continue to take [id number] allergy medication to help with the itching. You can also use the Benadryl cream provided 3-4 times daily. You can also use [id number] colloidal oatmeal. Follow up with your primary care provider in 1-2 days. Is patient prescribed a controlled substance at d/c from ED?: No Referrals: Cinda Lucero MD [Primary Care Provider] - 1-2 days Time of Disposition: 15:41
[2024-05-11] MEDS: diphenhydrAMINE 50 MG/ML 1 ML VIAL IM STA ×2 (13:27→14:45)
[2024-05-11] MEDS: FAMOTIDINE 20 MG TAB PO STA (13:28)
[2024-05-11] MEDS: CALAMINE/ZINC OXIDE LOTION 177 ML BTL TOPICAL STA (13:51)
[2024-05-11] MEDS: diphenhydrAMINE 2% CREAM 28.4 GM TUBE TOPICAL STA (14:43)
[2024-05-11] MEDS ORDERED: PETROLATUM, WHITE OINT 50 GM TUBE TOPICAL STA (14:48)
[2024-05-11] MEDS: LORazepam 2 MG/ML INJ IM STA (14:52)
[2024-05-11 16:34] VITALS: BP 119/74; PULSE 64; RESP 18
== END 2024-05-11 16:34 | disposition home or self-care (01) ==
LOC: EC 13:10
CPT/HCPCS: 96372; 99283

== ENCOUNTER → 2024-06-10 | Outpatient (CLI) | payer MEDICARE, BC ==
--- NOTE | 2024-06-10 12:33 | FL ---
Exam Date: 06/10/2024 12:07 PM. Modified barium swallow for dysphagia. Consistencies administered: Various consistency of barium. Fluoro time: 1 min 15 sec No images were sent to PACS. Please see speech pathology report. DAP: not reported [facility], , 06/10/2024 12:31 PM
== END | disposition home or self-care (01) ==
LOC: RADFLMAIN 11:08
PROVIDERS: ATTEND Internal Medicine
DX: R13.10 Dysphagia, unspecified (principal)
CPT/HCPCS: 74230

== ENCOUNTER 2024-10-13 06:12 | Emergency (ER) | payer MEDICARE, BC ==
[2024-10-13 06:22] VITALS: RESP 16
--- NOTE | 2024-10-13 06:32 | ED ---
Nausea/Vomiting/Diarrhea HPI - General Chief complaint: Nausea/Vomiting/Diarrhea Stated complaint: NVD Time Seen by Provider: 10/13/24 06:29 Source: patient, EMS, RN notes reviewed Mode of arrival: EMS Limitations: no limitations - History of Present Illness Initial comments: Patient is an 89-year-old female presented to the ER via EMS for evaluation of nausea, vomiting and diarrhea. Patient states since 2:30 AM she has been having diarrhea and nausea. She states she will have a crampy abdominal discomfort prior to episodes of diarrhea. She denies any hematochezia. She does report stools are black. Patient takes Xarelto. Admits to nausea and vomiting phlegm. No hematic emesis or coffee-ground emesis. Denies any fevers or chills. Patient believes she may have eaten a bad leftover omelette with ham and cheese in it. She denies any chest pain, shortness of breath, cough, congestion, runny nose, sore throat, urinary complaints or peripheral edema. Patient received 4 mg Zofran by EMS prior to arrival. No history of diverticulitis or prior bowel surgery. - Related Data Home Medications Medication Instructions Recorded Confirmed Rivaroxaban [Xarelto] 20 mg PO W/SUPPER 01/22/21 10/01/24 Spironolactone [Aldactone] 12.5 mg PO DAILY 02/16/21 10/01/24 ALPRAZolam [Xanax] 0.25 mg PO DAILY PRN 05/20/22 10/01/24 Cetirizine HCl [Zyrtec] 10 mg PO DAILY 05/20/22 10/01/24 amLODIPine [Norvasc] 5 mg PO DAILY 05/23/22 10/01/24 Aspirin EC [Ecotrin Low Dose] 81 mg PO DAILY 11/15/22 10/01/24 Atorvastatin [Lipitor] 40 mg PO HS 11/15/22 10/01/24 Famotidine 20 mg PO BID 11/15/22 10/01/24 Furosemide [Lasix] 40 mg PO DAILY 11/15/22 10/01/24 Metoprolol Tartrate [Lopressor] 50 mg PO BID 11/15/22 10/01/24 Fluticasone Nasal [place] [Flonase 1 spray NASAL DAILY 10/01/24 10/01/24 Nasal [place]] Gly/Dimeth/Petrolat,Wht/Water 85 gm TOPICAL DAILY 10/01/24 10/01/24 [Cetaphil Moisturizing Cream] Montelukast [Singulair] 1 tablet PO HS 10/01/24 10/01/24 Torsemide [Demadex] 20 mg PO DAILY 10/01/24 10/01/24 Previous Rx's Medication Instructions Recorded Ferrous Sulfate [Iron] 325 mg PO DAILY #30 tablet 04/29/24 Sennosides/Docusate Sodium 1 each PO DAILY PRN #30 tablet 04/29/24 [Senna-S 8.6-50 mg Tablet] Clobetasol Propionate [Temovate] 30 gm TP BID #30 gram 10/01/24 Allergies Allergy/AdvReac Type Severity Reaction Status Date / Time methylprednisolone Allergy Rash/Hives Verified 10/13/24 06:22 cephalexin [From Keflex] AdvReac Cramps Verified 10/13/24 06:22 Review of Systems ROS Statement: Those systems with pertinent positive or pertinent negative responses have been documented in the HPI. ROS Other: All systems not noted in ROS Statement are negative. Past Medical History Past Medical History: Asthma, Coronary Artery Disease (CAD), Heart Failure, CVA/TIA, Eye Disorder, GERD/Reflux, GI Bleed, Hyperlipidemia, Hypertension, Myocardial Infarction (MO), Osteoarthritis (OA), Pneumonia, Skin Disorder Additional Past Medical History / Comment(s): 2016 possible TIA, murmur, bronchitis, neuropathy bilateral lower legs/feet, edema lower legs/feet, hematemesis/suspected upper GI bleed/anemia with blood transfusion, past gastric ulcer, UTIs, incomplete emptying of bladder, overactive bladder, diverticular disease, arthritis in spine and toes with pain, starting of bilateral cataracts. Environmental allergies. 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 Last Myocardial Infarction Date:: 04/2016 History of Any Multi-Drug Resistant Organisms: None Reported Past Surgical History: Heart Catheterization With Stent, Hysterectomy Additional Past Surgical History / Comment(s): Multiple cardiac stents, D&C, colonoscopy. Cataract surgery. Vaginal hysterectomy 1974. Past Anesthesia/Blood Transfusion Reactions: No Reported Reaction Date of Last Stent Placement:: 06/08/16 Past Psychological History: Anxiety, Depression Smoking Status: Never smoker Past Alcohol Use History: None Reported Past Drug Use History: None Reported - Past Family History Son(s) Family Medical History: Cancer Father Family Medical History: Cancer Additional Family Medical History / Comment(s): Father of colon cancer when he was "elderly" Mother Family Medical History: CVA/TIA Additional Family Medical History / Comment(s): Mother at 89yrs a year after a massive CVA that left her paralyzed. General Exam Limitations: no limitations General appearance: alert, in no apparent distress Respiratory exam: Present: normal lung sounds bilaterally. Absent: respiratory distress, wheezes, rales, rhonchi, stridor Cardiovascular Exam: Present: regular rate, normal rhythm, normal heart sounds. Absent: systolic murmur, diastolic murmur, rubs, gallop, clicks GI/Abdominal exam: Present: soft, normal bowel sounds. Absent: distended, tenderness, guarding, rebound, rigid Neurological exam: Present: alert, oriented X3, CN II-XII intact Skin exam: Present: warm, dry, intact, normal color. Absent: rash Course Vital Signs 10/13/24 10/13/24 10/13/24 06:14 07:37 10:54 Temperature 97.7 F 98.1 F Pulse Rate 111 H 82 94 Respiratory 16 16 16 Rate Blood Pressure 121/72 111/69 O2 Sat by Pulse 99 98 96 Oximetry Medical Decision Making - Medical Decision Making Was pt. sent in by a medical professional or institution ([facility] Aaron, PRODUCT LEAD, urgent care, hospital, or snf...) When possible be specific @ -No Did you speak to anyone other than the patient for history (EMS, parent, family, police, friend...)? What history was obtained from this source @ -No Did you review nursing and triage notes (agree or disagree)? Why? @ -I reviewed and agree with nursing and triage notes Were old charts reviewed (outside hosp., previous admission, EMS record, old EKG, old radiological studies, urgent care reports/EKG's, snf records)? Report findings @ -No old charts were reviewed Differential Diagnosis (chest pain, altered mental status, abdominal pain women, abdominal pain men, vaginal bleeding, weakness, fever, dyspnea, syncope, headache, dizziness, GI bleed, back pain, seizure, CVA, palpatations, mental health, musculoskeletal)? @ -[Differential Abdominal Pain Women:Appendicitis, Cholecystitis, diverticulosis, ischemic bowel, pancreatitis, hepatitis, UTI, gastroenteritis, AAA, incarcerated hernia, bowel obstruction, constipation, inflammatory bowel, hepatitis, peptic ulcer disease, splenic infarction, perforated viscus, vulvit is, ovarian torsion, PID, kidney stone, placenta abruption, this is not meant to be an all-inclusive list EKG interpreted by me (3pts min.). @ -None done X-rays interpreted by me (1pt min.). @ -[None done CT interpreted by me (1pt min.). @ -CT abdomen pelvis showing minimal wall thickening surrounding sigmoid colon. Concerning of mild colitis. No adjacent inflammatory changes. Left adnexal c yst. U/S interpreted by me (1pt. min.). @ -None done What testing was considered but not performed or refused? (CT, X-rays, U/S, labs)? Why? @ -None What meds were considered but not given or refused? Why? @ -Antiemetics considered but not given as patient received Zofran by EMS. Patient also reports no recurrent bouts of nausea/vomiting/diarrhea in the ER. Did you discuss the management of the patient with other professionals (professionals i.e. , PA, PRODUCT LEAD, lab, RT, psych nurse, social media developer, ammonia worker, teacher, press officer, social work case manager)? Give summary @ -No Was smoking cessation discussed for >3mins.? @ -No Was critical care preformed (if so, how long)? @ -No Were there social determinants of health that impacted care today? How? (Homelessness, low income, unemployed, alcoholism, drug addiction, transportation, low edu. Level, literacy, decrease access to med. care, prison, rehab)? @ -No Was there de-escalation of care discussed even if they declined (Discuss DNR or withdrawal of care, Hospice)? DNR status @ -No What co-morbidities impacted this encounter? (DM, HTN, Smoking, COPD, CAD, Cancer, CVA, ARF, Chemo, Hep., AIDS, mental health diagnosis, sleep apnea, morbid obesity)? @ -Advanced age Was patient admitted / discharged? Hospital course, mention meds given and ro teller, prescriptions, significant lab abnormalities, going to OR and other pertinent info. @ -Discharge. 89-year-old female presenting to the ER via EMS for evaluation of nausea, vomiting and diarrhea. Upon rooming, history and physical exam completed. Vitals within acceptable limits. Patient in no signs of acute distress nontoxic-appearing. Laboratory studies obtained showing a WBC of 5.9. Lactic 1.2. Hemoglobin 11.2 baseline. Amylase 95, lipase 184. Viral swabs negative. Stool occult performed as patient reports dark stools and is negative. Urinalysis unremarkable. CT abdomen pelvis performed due to lower abdominal pain. This is showing minimal wall thickening through sigmoid colon possibly representing mild colitis. No adjacent inflammatory changes. Patient given 500 mL IV fluid bolus in the ER. Patient given Zofran by EMS. Upon reevaluation, patient resting comfortably in exam room no signs of acute distress. Results discussed with patient, all questions answered. Patient passed p.o. challenge coffee, armen crackers and peanut butter. Patient reports no recurrent bouts of diarrhea or vomiting while in the ER. Patient is stable for discharge at this time. Patient to be discharged with the Zofran starter pack. Strict return parameters discussed. Patient discharged in stable condition with follow-up to PCP. Patient verbally expressed understanding agre e with care plan. Case discussed with ED attending, Dr. Rodriguez. Undiagnosed new problem with uncertain prognosis? @ -No Drug Therapy requiring intensive monitoring for toxicity (Heparin, Nitro, In sulin, Cardizem)? @ -No Were any procedures done? @ -No Diagnosis/symptom? @ -Mild colitis Acute, or Chronic, or Acute on Chronic? @ -Acute Uncomplicated (without systemic symptoms) or Complicated (systemic symptoms)? @ -Uncomplicated Side effects of treatment? @ -No Exacerbation, Progression, or Severe Exacerbation? @ -No Poses a threat to life or bodily function? How? (Chest pain, USA, MO, pneumonia, PE, COPD, DKA, ARF, appy, cholecystitis, CVA, Diverticulitis, Homicidal, Suicidal, threat to staff... and all critical care pts) @ -Low at this time - Lab Data Result diagrams: 10/13/24 07:31 10/13/24 07:31 Lab Results 10/13/24 10/13/24 10/13/24 Range/Units 06:55 07:31 07:31 WBC 5.9 (3.8-10.6) k/uL RBC 5.13 (3.80-5.40) m/uL Hgb 11.2 L (11.4-16.0) gm/dL Hct 36.3 (34.0-46.0) % MCV 70.8 L (80.0-100.0) fL MCH 21.7 L (25.0-35.0) pg MCHC 30.7 L (31.0-37.0) g/dL RDW 22.0 H (11.5-15.5) % Plt Count 224 (150-450) k/uL MPV 7.7 Neutrophils % 86 % Lymphocytes % 5 % Monocytes % 6 % Eosinophils % 1 % Basophils % 0 % Neutrophils # 5.1 (1.3-7.7) k/uL Lymphocytes # 0.3 L (1.0-4.8) k/uL Monocytes # 0.4 (0-1.0) k/uL Eosinophils # 0.0 (0-0.7) k/uL Basophils # 0.0 (0-0.2) k/uL Hypochromasia Moderate Anisocytosis Moderate Microcytosis Marked Sodium (137-145) mmol/L Potassium (3.5-5.1) mmol/L Chloride (98-107) mmol/L Carbon Dioxide (22-30) mmol/L Anion Gap mmol/L BUN (7-17) mg/dL Creatinine (0.52-1.04) mg/dL Est GFR (CKD-EPI)AfAm (>60 ml/min/1.73 sqM) Est GFR (CKD-EPI)NonAf (>60 ml/min/1.73 sqM) Glucose (74-99) mg/dL Plasma Lactic Acid [place] 1.2 (0.7-2.0) mmol/L Calcium (8.4-10.2) mg/dL Total Bilirubin (0.2-1.3) mg/dL AST (14-36) U/L ALT (4-34) U/L Alkaline Phosphatase (38-126) U/L Total Protein (6.3-8.2) g/dL Albumin (3.5-5.0) g/dL Amylase (30-110) U/L Lipase (23-300) U/L Urine Color Urine Appearance (Clear) Urine pH (5.0-8.0) Ur Specific [place] (1.001-1.035) Urine Protein (Negative) Urine Glucose (UA) (Negative) Urine Ketones (Negative) Urine Blood (Negative) Urine Nitrite (Negative) Urine Bilirubin (Negative) Urine Urobilinogen (<2.0) mg/dL Ur Leukocyte Esterase (Negative) Stool Occult Blood (Negative) Influenza Type A (PCR) Not Detected (Not Detectd) Influenza Type B (PCR) Not Detected (Not Detectd) RSV (PCR) Not Detected (Not Detectd) SARS-CoV-2 (PCR) Not Detected (Not Detectd) 10/13/24 10/13/24 10/13/24 Range/Units 07:31 08:29 08:31 WBC (3.8-10.6) k/uL RBC (3.80-5.40) m/uL Hgb (11.4-16.0) gm/dL Hct (34.0-46.0) % MCV (80.0-100.0) fL MCH (25.0-35.0) pg MCHC (31.0-37.0) g/dL RDW (11.5-15.5) % Plt Count (150-450) k/uL MPV Neutrophils % % Lymphocytes % % Monocytes % % Eosinophils % % Basophils % % Neutrophils # (1.3-7.7) k/uL Lymphocytes # (1.0-4.8) k/uL Monocytes # (0-1.0) k/uL Eosinophils # (0-0.7) k/uL Basophils # (0-0.2) k/uL Hypochromasia Anisocytosis Microcytosis Sodium 135 L (137-145) mmol/L Potassium 3.7 (3.5-5.1) mmol/L Chloride 101 (98-107) mmol/L Carbon Dioxide 24 (22-30) mmol/L Anion Gap 10 mmol/L BUN 32 H (7-17) mg/dL Creatinine 0.87 (0.52-1.04) mg/dL Est GFR (CKD-EPI)AfAm 68 (>60 ml/min/1.73 sqM) Est GFR (CKD-EPI)NonAf 59 (>60 ml/min/1.73 sqM) Glucose 112 H (74-99) mg/dL Plasma Lactic Acid [place] (0.7-2.0) mmol/L Calcium 7.9 L (8.4-10.2) mg/dL Total Bilirubin 0.6 (0.2-1.3) mg/dL AST 29 (14-36) U/L ALT 18 (4-34) U/L Alkaline Phosphatase 83 (38-126) U/L Total Protein 6.2 L (6.3-8.2) g/dL Albumin 3.3 L (3.5-5.0) g/dL Amylase 95 (30-110) U/L Lipase 184 (23-300) U/L Urine Color Colorless Urine Appearance Clear (Clear) Urine pH 5.5 (5.0-8.0) Ur Specific [place] 1.015 (1.001-1.035) Urine Protein Negative (Negative) Urine Glucose (UA) Negative (Negative) Urine Ketones Negative (Negative) Urine Blood Negative (Negative) Urine Nitrite Negative (Negative) Urine Bilirubin Negative (Negative) Urine Urobilinogen <2.0 (<2.0) mg/dL Ur Leukocyte Esterase Negative (Negative) Stool Occult Blood Negative (Negative) Influenza Type A (PCR) (Not Detectd) Influenza Type B (PCR) (Not Detectd) RSV (PCR) (Not Detectd) SARS-CoV-2 (PCR) (Not Detectd) - Radiology Data Radiology results: report reviewed, image reviewed Disposition Clinical Impression: Colitis Disposition: HOME SELF-CARE Condition: Stable Instructions (If sedation given, give patient instructions): Acute Nausea and Vomiting (ED), Acute Diarrhea (ED) Additional Instructions: Follow-up with PCP. Return to the ER for any new or worsening symptoms. Is patient prescribed a controlled substance at d/c from ED?: No Referrals: Cinda Lucero MD [Primary Care Provider] - 1-2 days Time of Disposition: 10:22
[2024-10-13] MEDS: SODIUM CHLORIDE 0.9% 500 ML 500 ML IV STA (07:00)
[2024-10-13 07:48] LABS: Influenza A Not Detected (Not Detectd); Influenza B Not Detected (Not Detectd); RSV Not Detected (Not Detectd)
[2024-10-13 07:54] LABS: Anisocytosis Moderate; Basophils % (A) 0 %; Eosinophils % (A) 1 %; HCT 36.3 % (34.0-46.0); HGB 11.2 gm/dL (11.4-16.0); Hypochromasia Moderate; Lymphocytes # (A) 0.3 k/uL (1.0-4.8); Lymphocytes % (A) 5 %; MCH 21.7 pg (25.0-35.0); MCHC 30.7 g/dL (31.0-37.0); MCV 70.8 fL (80.0-100.0); Mean Platelet Volume 7.7; Microcytosis Marked; Monocytes # (A) 0.4 k/uL (0-1.0); Monocytes % (A) 6 %; Neutrophils # (A) 5.1 k/uL (1.3-7.7); Neutrophils % (A) 86 %; Platelet Count 224 k/uL (150-450); RBC 5.13 m/uL (3.80-5.40); WBC 5.9 k/uL (3.8-10.6)
[2024-10-13 08:04] LABS: ALT 18 U/L (4-34); AST 29 U/L (14-36); African American GFR (CKD) 68 (>60 ml/min/1.73 sqM); Albumin 3.3 g/dL (3.5-5.0); Alkaline Phosphatase 83 U/L (38-126); Amylase 95 U/L (30-110); Anion Gap 10 mmol/L; Blood Urea Nitrogen 32 mg/dL (7-17); Calcium 7.9 mg/dL (8.4-10.2); Carbon Dioxide 24 mmol/L (22-30); Chloride 101 mmol/L (98-107); Glucose 112 mg/dL (74-99); Lipase 184 U/L (23-300); Non-African American GFR(CKD) 59 (>60 ml/min/1.73 sqM); Potassium 3.7 mmol/L (3.5-5.1); Sodium 135 mmol/L (137-145); Total Bilirubin 0.6 mg/dL (0.2-1.3); Total Protein 6.2 g/dL (6.3-8.2)
[2024-10-13 08:44] LABS: Appearance,Urine Clear (Clear); Bilirubin,Urine Negative (Negative); Blood,Urine Negative (Negative); Color,Urine Colorless; Glucose,Urine (UA) Negative (Negative); Ketones,Urine Negative (Negative); Leukocyte Esterase,Urine Negative (Negative); Nitrite,Urine Negative (Negative); PH, Urine 5.5 (5.0-8.0); Protein,Urine Negative (Negative); Specific Gravity,Urine 1.015 (1.001-1.035); Urobilinogen,Urine <2.0 mg/dL (<2.0)
--- NOTE | 2024-10-13 09:26 | CT ---
EXAMINATION TYPE: CT abdomen pelvis w con DATE OF EXAM: 10/13/2024 9:07 AM COMPARISON: 01/04/2024 CLINICAL INDICATION: Female, 89 years old with history of abd cramping/diarrhea, abd cramping/diarrhe a TECHNIQUE: Axial images were obtained from above the diaphragm to the pubic rami in the axial plane a t 5 mm thick sections. Reconstructed images are reviewed on the computer in the coronal plane. CONTRAST: 100 mL of Isovue 300. Study performed without Oral Contrast DLP: 417.2 mGycm, Automated exposure control for dose reduction was used. FINDINGS: Limited CT sections are obtained the lung bases. The lung bases are clear. CT ABDOMEN: Liver: Normal Spleen: Normal Pancreas: Normal Adrenal glands: The adrenal glands are normal. Gallbladder: Normal Kidneys: No masses are evident. No hydronephrosis is present. No cysts are present. Delayed images were obtained through the kidneys, which remain unremarkable. Aorta: Dense Vascular calcification is within the aorta. Inferior vena cava: Normal. CT PELVIS: There are some prominent fluid-filled small bowel loops in the left mid abdomen and hemipelvis.Colon has a normal caliber. Some mild wall thickening of the sigmoid colon may be present. The study is wit hout oral contrast limiting bowel evaluation. Appendix: Normal as visualized. Urinary bladder: Normal. Genitourinary structures: Left adnexal cyst measuring 2.2 cm cyst present. Uterus is absent. Right ad nexal region appears clear. Osseous structures: No suspicious lytic or sclerotic lesions. IMPRESSION: 1. Minimal wall thickening through the sigmoid colon. Mild colitis could be considered. No adjacent inflammatory changes evident. 2. Left adnexal cyst. [facility], , 10/13/2024 9:24 AM
[2024-10-13] MEDS: ONDANSETRON 4 MG ODT STARTER PACK 2 TAB BTL PO STA (10:54)
[2024-10-13 10:55] VITALS: BP 111/69; PULSE 94; TEMP 98.1
== END 2024-10-13 11:04 | disposition home or self-care (01) ==
LOC: EC 06:12
DX: K52.9 Noninfective gastroenteritis and colitis, unspecified (principal); Z88.1 Allergy status to other antibiotic agents; Z88.8 Allergy status to other drugs, medicaments and biological substances; Z86.73 Personal history of transient ischemic attack (TIA), and cerebral infarction without residual deficits
CPT/HCPCS: 36415; 80053; 82150; 83605; 83690; 85025; 82272; 81003; 87636; 74177; 99285; 96360; 96361; S0119; Q9967

== ENCOUNTER → 2024-10-29 | Outpatient (CLI) | payer MEDICARE, BC ==
--- NOTE | 2024-10-29 11:26 | P.PN ---
Progress Note - Text Progress Note Date: 10/29/24 Chief Complaint: Recheck for vulvar symptoms after treatment with Temovate ointment. HPI: This is an 89-year-old -0-1-8 with an LMP of 1974. The patient was seen on 10/01/2024 and was experiencing vulvar itching and irritation. She was treated for suspected lichen sclerosus of the vulva and the treatment given was Temovate 0.05% ointment. She used this twice a day for 2 weeks, and then once a day for 1 week. She states it is much improved and she did not need the ointment during the past week. She is using petroleum jelly as a protective layer. ROS: Unremarkable. She was seen in the emergency room on 10/13/2024 for nausea, vomiting, and diarrhea. This is resolved. PE: Blood pressure: 126/73, Height: 4 feet 11 inches, Weight: 129 pounds, Temperature: 97.7, Pulse: 98. Pulse oximeter 98%. This is a well developed, well nourished, white female who is alert and orientedx3, in no acute distress. External genitalia reveals moderate atrophy with generalized vulvar pallor bilaterally which is well-defined and symmetric. There are no abrasions or ulcerations. The pallor extends to the perineum. Impression: 1. 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 Plan: 1. She will continue to use Temovate 0.05% ointment as needed. She will continue to use petroleum jelly once a day as a protective layer. She was instructed to call if she is having increasing symptoms, if she needs to use the Temovate ointment for more than 2 weeks straight, if there are any focal lesions, or if problems 2. She was advised to return in one year for her annual well woman exam and as needed. Time spent with the patient: 15 minutes
[2024-10-29 11:44] VITALS: BP 126/73; PULSE 88; RESP 16
== END ==
LOC: WWCWWP 10:47
PROVIDERS: ATTEND Obstetrics & Gynecology
DX: Z12.31 Encounter for screening mammogram for malignant neoplasm of breast (principal); L90.0 Lichen sclerosus et atrophicus; N95.1 Menopausal and female climacteric states; Z88.8 Allergy status to other drugs, medicaments and biological substances; Z88.1 Allergy status to other antibiotic agents